=== PATIENT | female | born 1995 | race Caucasian/White ===

== ENCOUNTER 2024-06-09 07:39 | Inpatient (IN) ==
--- OUTSIDE RECORDS SUMMARY | 2024-06-09 07:47 | External Medical Summary | Summary of Care ---
Author Name Unknown Organization [facility] Address [address] [address] Phone [phone] Care Team Providers Care Electric Car Operator Name Role Phone Unavailable Primary Care Provider Unavailabl e Reason for Visit * Reason Comments Healthy Beginnings Return Non Stress Test Encounter Details Date Type Department Care Team (Late st Contact Info) Description 05/23/2024 2:15 PM EDT Office Visit Gynecology/Obstetric s [facility] [place] [address] [place] [id number] Dina Carbajal CRNP [address] [place] [address] [place], Non Stress Tests [facility] [address] [place] [address] Supervision of high risk in third trimester*; Chronic hypertension in ; Obesity affecting , antepartum, unspecified obesity type; Need for rubella vaccination; Other proteinuria; Health counseling; Polyhydramnios in third trimester complication, single or unspecified fetus Allergies No known active allergiesdocumented as of this encounter (statuses as of 05/26/2024) Medications Medication Sig Dispensed Refills Start Date End Date Status Gummies 0.18-25 MG Oral Tablet Chewable Take by mouth. Activ e Magnesium 400 MG Oral Tablet Take by mouth. Active B-12 1000-400 MCG Sublingual Tablet Sublingual Place under the tongue. Active Aspirin 81 MG Oral Tablet Delayed Release (SB Low Dose ASA EC) Take 1 Tablet by mouth in the morning. Active Albuterol Sulfate HFA 108 (90 Base) MCG/ACT Inhalation Aerosol Solution Inhale 2 Puffs by mouth every 6 hours as needed for Dyspnea. 18 g 1 01/24/2024 Active Additional Information Patient not taking.Reported on 02/07/2024 Iron 325 (65 Fe) MG Oral Tablet Take by mouth. Active Labetalol HCl 100 MG Oral Tablet (Normodyne)Indicatio ns:Chronic hypertension in Take 1 Tablet by mouth in the morning and 1 Tablet before bedtime. 60 Tablet 1 04/21/2024 Active Famotidine 20 MG Oral Tablet (Pepcid)Indications: Heartburn Take 1 Tablet by mouth 2 times a day as needed for Heartburn. 30 Tablet 1 04/24/2024 Active documented as of this encounter (statuses as of 05/26/2024) Active Problems Problem Noted Date Diagnosed Date GBS (group B streptococcus) infection 05/26/2024 Polyhydramnios in third trimester 05/08/2024 Last Assessment & Plan: CONSIDERATIONS: Polyhydramnios is the presence of elevated levels of amniotic fluid index (LISY) greater than or equal to 24 cm or a maximum of vertical pocket (MVP) greater than or equal to 8 cm. Polyhydramnios is categorized as: Mild LISY of 24.0-29.9 cm Moderate LISY of 30.0-34.9 cm Severe LISY of greater than or equal to 35 cm We discussed potential etiologies and complications associated with polyhydramnios. Mild polyhydramnios often resolves spontaneously without negative effects on the . RECOMMENDATIONS: In non-diabetic patients, re-screen for GDM if not done within the previous 4 weeks. Please repeat 1'GTT now. Perform MFM (Maternal- Medicine) ultrasound in 4 weeks for assessment of growth and fluid if undelivered. Recommend delivery at 38-39 weeks pending BP control. Antepartum anemia complicating 024 Health counseling 02/07/2024 Overview: Problem Action Taken Date entered Entered by Date resolved First Support noted. 02/07/2024 Ximena Pathak RN 02/07/2024 nutrition Due date verification letter given For WIC 02/07/2024 Ximena Pathak RN 02/07/2024 Problem Action Taken Date entered Entered by Date resolved Current needs or questions Patient denies having any current needs or questions 03/07/2024 Ximena Pathak RN 03/07/2024 Problem Action Taken Date entered Entered by Date resolved Current needs or questions Patient denies having any current needs or questions 03/18/2024 Ximena Pathak RN 03/18/2024 Problem Action Taken Date entered Entered by Date resolved Current needs or questions Patient denies having any current needs or questions 04/21/2024 Elida Gaxiola RN 04/21/2024 Problem Action Taken Date entered Entered by Date resolved Current needs or questions Patient denies having any current needs or questions 04/24/2024 Elida Gaxiola RN 04/24/2024 Problem Action Taken Date entered Entered by Date resolved Current needs or questions Patient denies having any current needs or questions 05/16/2024 Ximena Pathak RN 05/16/2024 Problem Action Taken Date entered Entered by Date resolved Current needs or questions Patient denies having any current needs or questions 05/23/2024 Margot Lanza RN 05/23/2024 Upper respiratory tract infection 01/24/2024 Sore throat (viral) 01/24/2024 Need for rubella vaccination 12/18/2023 Proteinuria 12/18/2023 Overview: Protein/creatinine ratio 348mg/g at NOB 24 hr urine protein 378 mg/g at 22w6d: discussed with Dr Toure, no change in mgmt needed with stable BP - SB , supervision, high-risk 12/13/2023 Migraine with aura and with status migrainosus, not intractable 12/13/2023 Chronic hypertension in 12/13/2023 Overview: Images from the original note were not included. Chronic hypertension diagnosed in 2013 Was on antihypertensives in her early 20s, then discontinued Elevated BP 140/90 at NOB visit (13w) Started on medication Labetalol 100 mg BID at 31w5d following elevations x 2 (diastolic BP >=90) Recommend starting daily low dose ASA Recommendations: Obtain baseline lab work ABIGAIL (if not already done) with assessment of proteinuria (24-hour urine protein or nubxdrf-rk-mukhhbiica ratio) and CBC, serum AST/ALT/creatinine. If patient has had hypertension for 10 years or more, obtain an EKG and eye exam (if not performed within the past year). Recommend initiation of aspirin (81mg) daily, from 13 weeks until delivery, to decrease the risk of superimposed preeclampsia. Daily home blood pressure monitoring, especially in the second half of the . It may be useful to have the patient validate their home device with their primary OB care provider's office. Patients with BP less than 140/90 maintained with antihypertensives should continue medication during . Discontinuation of MARY inhibitors or angiotensin type II receptor antagonists under the guidance of the primary care physician prior to conception of or upon knowledge of . Initiate or adjust antihypertensive medication if BP is 140/90 or greater on at least two occasions at least 4 hours apart and refer patient back to Maternal- Medicine. Titrate medication to maintain blood pressure in a goal range 120-140/70-90. Labetalol and Nifedipine are considered safe for use in and these agents are considered as first-line therapy when indicated. Maternal Medicine ultrasound for anatomy at 19-20 weeks. surveillance as follows: If NOT being treated with anti-hypertensives: Maternal- Medicine ultrasound for growth between 28-30 weeks If being treated with anti-hypertensives: Maternal- Medicine ultrasound for growth every 4 weeks starting at 24-26 weeks surveillance weekly starting at 32 weeks gestation Delivery should be individualized based on blood pressure control and assessment of patient risk and is indicated as follows: For those with stable blood pressures not on anti-hypertensive medications: Between 38 0/7 and 39 6/7 weeks For those on anti-hypertensive medications: Between 37 0/7 and 39 6/7 weeks BP Readings from Last 10 Encounters: 02/15/24 130/82 02/08/24 142/87 02/07/24 126/82 01/24/24 124/80 01/11/24 148/92 12/13/23 140/90 Baseline Preeclampsia Labs Lab Results Component Value Date/Time PLT 210 12/13/2023 09:54 AM CREATININE - [facility] 0.5 12/13/2023 09:54 AM AST - [facility] 30 12/13/2023 09:54 AM ALT - [facility] 36 (H) 12/13/2023 09:54 AM Protein/ Creatinine Ratio, Urine <150 mg/g 348 High 12/13/2023 Protein, Random Urine mg/dL 16 12/13/2023 Creatinine, Random Urine mg/dL 46 Last Assessment & Plan: BP Readings from Last 5 Encounters: 05/07/24 128/82 05/01/24 138/78 04/24/24 126/62 04/21/24 132/90 04/04/24 136/94 Stable on labetalol 100 mg bid. Obesity affecting , antepartum 12/13/19 Overview: The patient's pre-gravid BMI is 39.27. Class 2 obesity Early 1 hour GTT Lab Results Component Value Date/Time 50-G GESTATIONAL GLUCOSE, 1 HOUR - [facility] 128 01/11/2024 09:41 AM Baseline Preeclampsia Labs Lab Results Component Value Date/Time PLT 210 12/13/2023 09:54 AM CREATININE - [facility] 0.5 12/13/2023 09:54 AM AST - [facility] 30 12/13/2023 09:54 AM ALT - [facility] 36 (H) 12/13/2023 09:54 AM Last Assessment & Plan: She presents for follow-up of growth secondary to class II obesity and CHTN (not currently on medications). Today's ultrasound notes the following: The estimated weight is appropriate for gestational age in the 50th percentile. The visualized anatomy is unremarkable in appearance. The LISY is normal. Estimated Date of Delivery Comme nts Yes 06/18/2024 Based on Ultraso und documented as of this encounter (statuses as of 05/26/2024) Resolved Problems Problem Noted Date Diagnosed Date Resolved Date with 15 completed weeks gestation 12/28/2023 02/07/2024 documented as of this encounter (statuses as of 05/26/2024) Immunizations Name Administration Dates Next Due TDAP (age 10 and older)(Boostrix) 04/02/2024 documented as of this encounter Social History Tobacco Use Types Packs/Day Years Used Date Smoking Tobacco: Never Smokeless Tobacco: Never Alcohol Use Standard Drinks/Week Comments Not Currently 0 (1 standard drink = 0.6 oz pur e alcohol) PHQ-2 Answer Date Recorded PHQ Adult Total Score 0 01/24/2024 Hunger Vital Sign Answer Date Recorded Within the past 12 months, y ou worried that your food would run out before you got the money to buy more. Never true 02/08/20 24 Within the past 12 months, t he food you bought just didn't last and you didn't have money to get more. Never true 02/08/2024 [place] Depression Scale Answer Date Recorded [place] Depression Scale Total 0 12/13/2023 The thought of harming myself has occurred to me . Never 12/13/2023 Childcare Answer Date Recorded Do you feel overwhelmed with taking care of a child, family member or friend? No 02/08/2024 Does your family need help f inding childcare? (Household - for ages 0-17 years) Not on file 02/08/2024 Clothing Answer Date Recorded Have you been unable to get clothing when it was really needed? No 02/08/2024 Is your family able to get c lothes or diapers when needed? (Household - for ages 0-17 years) Not on file 02/08/2024 Personal Safety Answer Date Recorded Do you feel unsafe or have concerns for your saf ety? No 02/08/2024 Do you have concerns for you r family's safety? (Household - for ages 0-17 years) Not on file 02/08/2024 Utilities Answer Date Recorded Do you have trouble paying y our heating, water, or electric bill? No 02/08/2024 Is your family able to pay t he heat, water, or electric bill? (Household - for ages 0-17 years) Not on file 02/08/2024 Does your family have access to good internet? (Household - for ages 0-17 years) Not on file 02/08/2024 Employment Status Answer Date Recorded Are you unemployed or without regular income? No 02/08/2024 Does the household have a re gular source of income? (Household - for ages 0-17 years) Not on file 02/08/2024 Social Connections Answer Date Recorded How often do you feel lonely or isolated from th ose around you? Never 02/08/2024 Financial Resource Strain Answer Date R ecorded Do you have any trouble payi ng for your medications, or do you think you might in the future? No 02/08/2024 Does your family have troubl e paying for medicine? (Household - for ages 0-17 years) Not on file 02/08/2024 Transportation Needs Answer Date Record ed READ ONLY Do you have troubl e getting a ride to medical visits or work? Never True 02/08/2024 Does your family have a hard time getting a ride to doctors visits? (Household - for ages 0-17 years) Not on file 02/08/2024 Has lack of transportation k ept you from medical appointments, meetings, work, or from getting things needed for daily living? Check all that apply. (Adult - for ages 18 years and over) Not on file 02/08/2024 Do you (or your family) have trouble finding or paying for a ride (transportation)? (Household - for ages 0-17 years) Not on file 02/08/2024 Housing Stability Answer Date Recorded Do you currently live in a s helter or have no steady place to sleep at night? No 02/08/2024 READ ONLY Do you think you a re at risk of becoming homeless? No 02/08/2024 Does your family worry about paying for your home or becoming homeless? (Household - for ages 0-17 years) Not on file 0 02/08/2024 Are you homeless or worried that you might be in the future? (Adult - for ages 18 years and over) Not on file Are you (or your family) zhanna eless or worried that you might be in the future? (Household - for ages 0-17 years) Not on file Food Insecurity Answer Date Recorded Do you need food for this week? No 02/08/2024 Are you able to get enough f ood for your family? (Household - for ages 0-17 years) Not on file 02/08/2024 Does your family need food t his week? (Household - for ages 0-17 years) Not on file 02/08/2024 Do you always have enough fo od for your family? (Household - for ages 0-17 years) Not on file 02/08/2024 Estimated Date of Delivery Comme nts Yes 06/18/2024 Based on Ultraso und Sex and Gender Information Value Date Recorded Sex Assigned at Female 11/01/2023 9:05 AM EST Gender Identity Female 11/01/2023 9:05 AM EST Sexual Orientation Straight 11/01/2023 9: 05 AM EST Job Start Date Occupation Industry Not on file Not on file Not on file documented as of this encounter Last Filed Vital Signs Vital Sign Reading Time Taken Comments Blood Pressure 108/68 05/23/2024 2:02 PM EDT Pulse - - Temperature - - Respiratory Rate - - Oxygen Saturation - - Inhaled Oxygen Concentration - - Weight 111.4 kg (245 lb 9.6 oz) 05/23/2024 2:02 PM EDT Height 165.1 cm (5' 5") 05/23/2024 2:02 PM EDT Body Mass Index 40.87 05/23/2024 2:02 PM EDT documented in this encounter Progress Notes * Dina Carbajal CRNP - 05/23/2024 3:19 PM EDT 36w2d Questions regarding IOL, answered to the best of my ability. Uncertain position of baby, was transverse at last u/s. IOL scheduled for 06/06, but need to reevaluate position- does not feel cephalic at visit today. Discussed need for c/s if breech, not interested in ECV. Baby is active. Denies contractions, bleeding, LOF. GBS today. Cost Consultant Documentation Provider requested mercantile agent. Name of mercantile agent: Radha Will obtain u/s for position check with next visit. ASSESSMENT assessment with Non-stress Test completed on 05/23/2024 at 36.2weeks gestation for indication of chronic hypertension heart baseline: 120 bpm Variability: Moderate Decelerations: absent Accelerations: present Contractions: None NST start time: 1340 NST stop time: 1406 NST strip reviewed, interpreted, and approved by OB provider, BETSEY [place] . NST strip stored in clinic storage file documented in this encounter Nursing Notes * Margot Lanza RN - 05/23/2024 2:30 PM EDT Patient seen by [facility] Bar Supervisor. Patient denies any questions or concerns. have you cut down with your smoking NA have you quit NA have you seen a driver trainer No have you seen a social worker aide No are you receiving counseling No have you received dental care during your No are you enrolled in WIC No do you receive food stamps or [place] assistance No Margot Lanza, RN documented in this encounter Miscellaneous Notes * Addendum Note - Marko Dunne LPN - 05/23/2024 3:30 PM EDT Addended by: MARKO DUNNE on: 05/23/2024 03:30 PM Modules accepted: Orders documented in this encounter Plan of Treatment Upcoming Encounters Date Type Department Care Team (Late st Contact Info) Description 06/02/2024 9:30 AM EDT Imaging Radiology [facility] [address] [facility] [place] [id number] 06/02/2024 11:30 AM EDT Office Visit Gynecology/Obstetrics [address] [place] [address] Stacy Silva, WEI, [address] [place] [address] 06/05/2024 8:45 AM EDT Imaging Maternal Medicine Imaging, [address] [place] [address] Scheduled Orders Name Type Priority Associated Diagnoses Orde r Schedule US PREG LIMITED 1 OR MORE FETUSES Medical Imaging Routine Supervision of high risk in third trimester Expected: 05/30/2024 (Approximate), Expires: 06/23/2025 Health Maintenance Due Date Last Done Comments Hepatitis B Vaccine (1 of 3 - 19+ 3-dose series) 2013 COVID-19 Vaccine ( season) 2023 Influenza Vaccine (FLU shot) (#1) 2024 Depression Screening 01/23/2025 01/24/2024 GFR 04/24/2025 04/24/2024, 04/07, 03/18/2024, Additional history exists Pap Smear 12/12/2026 12/13/2023 Cervical Cancer Screening 12/12/2028 HPV/Co-Test 12/12/2028 12/13/2023 DTaP,Tdap,and Td Vaccines (2 - Td or Tdap) 04/02/2034 04/02/2024 HPV (Gardasil) Vaccine Aged Out No lo nger eligible based on patient's age to complete this topic MENINGOCOCCAL (MENACTRA/MENVEO) Aged Out No longer eligible based on patient's age to complete this topic Pneumococcal Vaccine: Pediatrics (0 to 5 Years) and At-Risk Patients (6 to 64 Years) Aged Out No longer eligible based on patient's age to complete this topic documented as of this encounter Medical Devices Not on filedocumented as of this encounter Procedures Procedure Name Priority Date/Time Associated Diagnosis Comments GROUP B STREP CULTURE/PCR Routine 05/23/2024 3:16 PM EDT Supervision of high risk in third trimester URINALYSIS, POINT OF CARE (ENTER/EDIT) Routine 05/23/2024 Chronic hypertension in documented in this encounter Results * (ABNORMAL) GROUP B STREP CULTURE/PCR (05/23/2024 3:16 PM EDT) Group B Strep PCR Result Positive( A) Negative 05/24/2024 9:26 PM EDT [facility] Comment:Group B Streptococcu s detected by culture-enhanced PCR (amplified probe). GBS GBSCt 23.1 05/24/2024 9:26 PM EDT [facility] GBS SPCCt 0.0 05/24/2024 9:26 PM EDT [facility] Swab Rectum and vagina, CS / Unknown 05/23/2024 3:16 PM EDT 05/23/2024 3:16 PM EDT Dina LEGGETT LAB MICRO - GENERAL ORDERABLES LABORATORY [facility] [address] [place] [address] * URINALYSIS, POINT OF CARE (ENTER/EDIT) (05/23/2024) Color, Urine Yellow Yellow or Light Yellow Clarity, Urine Clear Clear Glucose, Urine Negative Negative mg/dL Bilirubin, Urine Negative Negative Ketone, Urine Negative Negative mg/dL Specific [place], Urine 1.010 1.003 - 1.030 Blood, Urine Negative Negative pH, Urine 7.0 5.0 - 7.5 units Protein, Urine Negative Negative mg/dL Urobilinogen, Urine 0.2 0.2 - 1.0 mg/dL Nitrite, Urine Negative Negative Esterase, Urine Negative Negative Urine 05/23/2024 Dina LEGGETT LAB POINT OF CARE TE ST ENTER/EDIT ORDERABLES documented in this encounter Visit Diagnoses Diagnosis Supervision of high risk in third trimester- Primary Unspecified high-risk Chronic hypertension in Benign essential hypertension complicating , childbirth, and the puerperium, unspecified as to episode of care Obesity affecting , antepartum, unspecified obesity type Need for rubella vaccination Need for prophylactic vaccination and inoculation against rubella alone Other proteinuria Health counseling Other specified counseling Polyhydramnios in third trimester complication, single or unspecified fetus documented in this encounter
--- OUTSIDE RECORDS SUMMARY | 2024-06-09 07:47 | External Medical Summary | Summary of Care ---
Author Name Unknown Organization [facility] Address [address] [facility] [place] [address] Phone [phone] Care Team Providers Care Certified Histologic Technician Name Role Phone Unavailable Primary Care Provider Unavailabl e Encounter Details Date Type Department Care Team (Late st Contact Info) Description 06/04/2024 Telephone Gynecology/Obstetrics [facility] [address] [place] [address] Aris Lenz MD [address] [place] [address] Allergies No known active allergiesdocumented as of this encounter (statuses as of 06/04/2024) Medications Medication Sig Dispensed Refills Start Date [...] as of this encounter (statuses as of 06/04/2024) Active Problems Problem Noted Date Diagnosed Date [...] assessment of proteinuria (24-hour urine protein or hiqfolu-pv-iqpefqdlvj ratio) and CBC, serum AST/ALT/creatinine. If patient [...] as of this encounter (statuses as of 06/04/2024) Resolved Problems Problem Noted Date Diagnosed Date Resolved Date with 15 completed weeks gestation 12/28/2023 02/07/2024 documented as of this encounter (statuses as of 06/04/2024) Immunizations Name Administration Dates Next Due TDAP [...] money to buy more. Never true 02/08/20 Within the past 12 months, t he food you bought just didn't last and you didn't have money to get more. Never true 02/08/2024 [place] Depression Scale Answer Date Recorded [place] Depression Scale Total 0 12/13/2023 The thought [...] on file documented as of this encounter Miscellaneous Notes * Telephone Encounter - Robyn David LPN - 06/04/2024 3:57 PM EDT Spoke with pt she verbalized understanding * Telephone Encounter - Patsy David LPN - 06/04/2024 2:41 PM EDT [facility] L&D calling stating IOL needs to be moved from 06/06/24 to . LM for pt to call office to review new IOL info. documented in this encounter Plan of Treatment Upcoming Encounters Date Type Department Care Team (Late st Contact Info) Description 06/05/2024 8:45 AM EDT Imaging Maternal Medicine Imaging, [facility] [address] [facility] [place] [id number] 06/05/2024 8:45 AM EDT Office Visit Director Power Obstetrics Maternal Medicine, [facility] [address] [facility] [place] [address] Thu Toure, DO [address] [place] [address] Health Maintenance Due Date Last Done Comments Hepatitis B Vaccine (1 of 3 - 19+ 3-dose series) 2013 COVID-19 Vaccine ( season) 2023 Influenza Vaccine (FLU shot) (#1) 2024 Depression Screening 01/23/2025 01/24/2024 GFR 04/24/2025 04/24/2024, 04/07, 03/18/2024, Additional history exists Pap Smear 12/12/2026 12/13/2023 Cervical Cancer Screening 12/12/2028 HPV/Co-Test 12/12/2028 12/13/2023 DTap/Tdap Vaccines (2 - Td or Tdap) 04/02/2034 [...]
--- OUTSIDE RECORDS SUMMARY | 2024-06-09 07:47 | External Medical Summary | Summary of Care ---
Author Name Unknown Organization [facility] Address [address] [facility] [address] Phone [phone] Care Team Providers Care Medical Imaging Specialist Name Role Phone Unavailable Primary Care Provider Unavailabl e Encounter Details Date Type Department Care Team (Late st Contact Info) Description 04/21/2024 [facility] [address] [place] [address] Nola Meyer PA-C [address] [facility] [place] [address] Allergies No known active allergiesdocumented as of this encounter (statuses as of 05/28/2024) Medications Medication Sig Dispensed Refills Start Date [...] before bedtime. 60 Tablet 1 04/21/2024 Active documented as of this encounter (statuses as of 05/28/2024) Active Problems Problem Noted Date Diagnosed Date [...] assessment of proteinuria (24-hour urine protein or ybmsldy-tr-diqzbvwhxj ratio) and CBC, serum AST/ALT/creatinine. If patient [...] as of this encounter (statuses as of 05/28/2024) Resolved Problems Problem Noted Date Diagnosed Date Resolved Date with 15 completed weeks gestation 12/28/2023 02/07/2024 documented as of this encounter (statuses as of 05/28/2024) Immunizations Name Administration Dates Next Due TDAP [...] money to get more. Never true 02/08/2024 [place] Depression Scale Answer Date Recorded [place] Depression Scale Total 0 12/13/2023 The thought [...] 02/08/2024 Does the household have a re lar source of income? (Household - for ages [...] encounter Miscellaneous Notes * Telephone Encounter - Nola Meyer PA-C - 04/21/2024 8:13 AM EDT Pt needs CHIO/NST/BP check on -- any provider. Nola Meyer PA-C documented in this encounter Plan of Treatment Upcoming Encounters Date Type Department Care Team (Late st Contact Info) Description 06/02/2024 9:30 AM EDT Imaging Radiology [facility] 132 [facility] [place] [address] 06/02/2024 11:30 AM EDT Office Visit Gynecology/Obstetrics [facility] 132 [facility] [place] [address] Stacy Silva, WEI, CNM [address] [place] [phone] 06/05/2024 8:45 AM EDT Imaging Maternal Medicine Imaging, [facility] [address] [facility] [place] [address] Health Maintenance Due Date Last Done Comments Hepatitis B Vaccine (1 of 3 - 19+ 3-dose series) 2013 COVID-19 Vaccine ( - 2022-24 season) 2023 Influenza Vaccine (FLU shot) (#1) [...]
--- OUTSIDE RECORDS SUMMARY | 2024-06-09 07:47 | External Medical Summary | Summary of Care ---
Author Name Unknown Organization [facility] Address [address] [facility] [address] Phone [phone] Care Team Providers Care Overhead Cleaner Name Role Phone Unavailable Primary Care Provider Unavailabl e Reason for Visit * Reason Comments Healthy Beginnings Return Non Stress Test Encounter Details Date Type Department Care Team (Late st Contact Info) Description 05/23/2024 2:15 PM EDT Office Visit Gynecology/Obstetric s [facility] [address] [place] [address] Dina Carbajal CRNP [address] [place] [address] [place], Non Stress Tests [facility] [address] [place] [address] Supervision of high risk in third trimester*; Chronic hypertension in ; Obesity affecting , antepartum, unspecified obesity type; Need for rubella vaccination; Other proteinuria; Health counseling; Polyhydramnios in third trimester complication, single or unspecified fetus Allergies No known active allergiesdocumented as of this encounter (statuses as of 05/23/2024) Medications Medication Sig Dispensed Refills Start Date [...] as of this encounter (statuses as of 05/23/2024) Active Problems Problem Noted Date Diagnosed Date Polyhydramnios in third trimester 05/08/2024 Last Assessment [...] by Date resolved First Support noted. 02/07/2024 Ximenaedward Pathak RN 02/07/2024 nutrition Due date verification [...] assessment of proteinuria (24-hour urine protein or klarhzn-yo-otvuvpodia ratio) and CBC, serum AST/ALT/creatinine. If patient [...] as of this encounter (statuses as of 05/23/2024) Resolved Problems Problem Noted Date Diagnosed Date Resolved Date with 15 completed weeks gestation 12/28/2023 02/07/2024 documented as of this encounter (statuses as of 05/23/2024) Immunizations Name Administration Dates Next Due TDAP [...] money to get more. Never true 02/08/2024 [place] Depression Scale Answer Date Recorded [place] Depression Scale Total 0 12/13/2023 The thought [...] active. Denies contractions, bleeding, LOF. GBS today. [employer] Documentation Provider requested pension administrator. Name of pension administrator: Radha Will obtain u/s for position check [...] 05/23/2024 2:30 PM EDT Patient seen by [facility] Resident Physician In Radiology. Patient denies any questions or concerns. have you cut down with your smoking NA have you quit NA have you seen a email designer No have you seen a psychosocial rehabilitation counselor No are you receiving counseling No have you received dental care during your No are you enrolled in WIC No do you receive food stamps or orellana assistance Yael Lanza, RN documented in this encounter Miscellaneous Notes * Addendum Note - Marko Dunne LPN - 05/23/2024 3:30 PM EDT Addended by: MARKO DUNNE on: 05/23/2024 03:30 PM Modules accepted: Orders documented in this encounter Plan of Treatment Upcoming Encounters Date Type Department Care Team (Late st Contact Info) Description 06/02/2024 9:30 AM EDT Imaging Radiology [facility] 132 [facility] [place] [address] 06/02/2024 11:30 AM EDT Office Visit Gynecology/Obstetrics [address] [place] [address] Stacy Silva, WEI, CN[address] [place] [address] 06/05/2024 8:45 AM EDT Imaging Maternal Medicine Imaging, [address] [place] [phone] Pending Results Name Type Priority Associated Diagnoses Date /Time GROUP B STREP CULTURE/PCR Lab Routine Supervision of high risk in third trimester 05/23/2024 3:16 PM EDT Scheduled Orders Name Type Priority Associated Diagnoses Orde r Schedule US PREG LIMITED 1 OR MORE FETUSES Medical Imaging Routine Supervision of high risk in third trimester Expected: 05/30/2024 (Approximate), Expires: 06/23/2025 Health Maintenance Due Date Last Done Comments Hepatitis B Vaccine (1 of 3 - 19+ 3-dose series) 2013 COVID-19 Vaccine (2022-24 season) 2023 Influenza Vaccine (FLU shot) (#1) [...] Procedure Name Priority Date/Time Associated Diagnosis Comments URINALYSIS, POINT OF CARE (ENTER/EDIT) Routine 05/23/2024 Chronic hypertension in documented in this encounter Results * URINALYSIS, POINT OF CARE (ENTER/EDIT) (05/23/2024) Color, Urine Yellow Yellow or Light Yellow Clarity, Urine Clear Clear Glucose, Urine Negative Negative mg/dL Bilirubin, Urine Negative Negative Ketone, Urine Negative Negative mg/dL Specific [place], Urine 1.010 1.003 - 1.030 Blood, Urine [...]
--- OUTSIDE RECORDS SUMMARY | 2024-06-09 07:47 | External Medical Summary ---
Author Name Unknown Address Unknown Organization [id number]:[facility] [place] [facility] [place] [address] Laboratory Report Ordering Provider Test Date Status HAN DORANTES 05/23/2024 15:16:44 Final Observation Date Value Abnormality Reference (Units ) Status Streptococcus agalactiae DNA [Presence] in Specimen by BRICE with probe detection 05/23/2024 15:16:44 Positive Abnormal Negative Final Group B Streptococcus detect ed by culture-enhanced PCR (amplified probe). GBS GBSCT - [facility] 05/23/2024 15:16:44 23.1 Final GBS SPCCT - [facility] 05/23/2024 15:16:44 0.0 Final Performing Location [facility] [place] [address] [facility] [address]
--- OUTSIDE RECORDS SUMMARY | 2024-06-09 07:47 | External Medical Summary | Summary of Care ---
Author Name Unknown Organization [facility] Address [address] [facility] [address] Phone [phone] Care Team Providers Care Staff Submarine Warfare Officer Name Role Phone Unavailable Primary Care Provider Unavailabl e Reason for Visit * Reason Comments Return Visit Encounter Details Date Type Department Care Team (Late st Contact Info) Description 06/02/2024 11:30 AM EDT Office Visit Gynecology/Obstetric s [facility] 132 [facility] [place] [address] Stacy Silva, DNP, CN [address] [facility] [place] [address] Supervision of high risk in third trimester*; Chronic hypertension in ; Other obesity affecting , antepartum; Need for rubella vaccination; Health counseling; GBS (group B streptococcus) infection Allergies No known active allergiesdocumented as of this encounter (statuses as of 06/02/2024) Medications Medication Sig Dispensed Refills Start Date [...] as of this encounter (statuses as of 06/02/2024) Active Problems Problem Noted Date Diagnosed Date [...] assessment of proteinuria (24-hour urine protein or fgdjlaq-em-eaypkuinvy ratio) and CBC, serum AST/ALT/creatinine. If patient [...] as of this encounter (statuses as of 06/02/2024) Resolved Problems Problem Noted Date Diagnosed Date Resolved Date with 15 completed weeks gestation 12/28/2023 02/07/2024 documented as of this encounter (statuses as of 06/02/2024) Immunizations Name Administration Dates Next Due TDAP [...] money to get more. Never true 02/08/2024 [place] Depression Scale Answer Date Recorded [place] Depression Scale Total 0 12/13/2023 The thought [...] Sign Reading Time Taken Comments Blood Pressure 134/82 06/02/2024 11:25 AM EDT Pulse - - Temperature - - Respiratory Rate - - Oxygen Saturation - - Inhaled Oxygen Concentration - - Weight 112.5 kg (248 lb) 06/02/2024 11:25 AM EDT Height 165.1 cm (5' 5") 06/02/2024 11:25 AM EDT Body Mass Index 41.27 06/02/2024 11:25 AM EDT documented in this encounter Progress Notes * Stacy Silva DNP, CNM - 06/02/2024 11:51 AM EDT Selwyn Christian is a 29 year old female here for her routine OB appointment at 37w5d Her Estimated Date of Delivery: 06/18/24 REVIEW OF SYSTEMS: She affirms movement. Denies vaginal bleeding, LOF, contractions, N/V, headaches ok this week. Baby is vertex on US today. Has IOL 06/06 Not doing NST today bc she has BPP on with MFM. PHYSICAL EXAM: Filed Vitals: 06/02/24 1125 BP: 134/82 Weight: 112.5 kg (248 lb) Height: 1.651 m (5' 5") +FHT 130s Fundal height 38 ASSESSMENT/PLAN: (O09.90) , supervision, high-risk (primary encounter diagnosis) Plan: (O10.919) Chronic hypertension in Plan: Labetalol 100mg BID (O40.3XX0) Polyhydramnios in third trimester Plan: LISY 27.6 polyhydramnios (A49.1) GBS (group B streptococcus) infection Plan: Pt aware. Supervision of - BPP on with MFM - IOL on 06/06, pt declines SVE today. Discussed cervical ripening can be a very lengthy process. - labor precautions and kick counts reviewed - RTO in 1 week Stacy Silva DNP, CNM documented in this encounter Nursing Notes * Robyn David LPN - 06/02/2024 11:20 AM EDT 37w5d US today Vertex Lisy 27.6cm HR 133 documented in this encounter Plan of Treatment Upcoming Encounters Date Type Department Care Team (Late st Contact Info) Description 06/05/2024 8:45 AM EDT Imaging Maternal Medicine Imaging, [facility] 132 [facility] [place] [phone] Health Maintenance Due Date Last Done Comments Hepatitis B Vaccine (1 of 3 - 19+ 3-dose series) 2013 COVID-19 Vaccine ( - 2022- season) 2023 Influenza Vaccine (FLU shot) (#1) [...] Not on filedocumented as of this encounter Visit Diagnoses Diagnosis Supervision of high risk in third trimester- Primary Unspecified high-risk Chronic hypertension in Benign essential hypertension complicating , childbirth, and the puerperium, unspecified as to episode of care Other obesity affecting , antepartum Need for rubella vaccination Need for prophylactic vaccination and inoculation against rubella alone Health counseling Other specified counseling GBS (group B streptococcus) infection Streptococcus infection in conditions classified elsewhere and of unspecified site, group B documented in this encounter
--- OUTSIDE RECORDS SUMMARY | 2024-06-09 07:47 | External Medical Summary | Summary of Care ---
Author Name Unknown Organization [facility] Address [address] [facility] [place] [address] Phone [phone] Care Team Providers Care Dairy Associate Name Role Phone Unavailable Primary Care Provider Unavailabl e Encounter Details Date Type Department Care Team (Late st Contact Info) Description 05/30/2024 Population Health External Data Unspecified Department Allergies No known active allergiesdocumented as of this encounter (statuses as of 05/30/2024) Medications Medication Sig Dispensed Refills Start Date [...] as of this encounter (statuses as of 05/30/2024) Active Problems Problem Noted Date Diagnosed Date [...] assessment of proteinuria (24-hour urine protein or yuhrwqk-qg-tpbqghetsm ratio) and CBC, serum AST/ALT/creatinine. If patient [...] as of this encounter (statuses as of 05/30/2024) Resolved Problems Problem Noted Date Diagnosed Date Resolved Date with 15 completed weeks gestation 12/28/2023 02/07/2024 documented as of this encounter (statuses as of 05/30/2024) Immunizations Name Administration Dates Next Due TDAP [...] money to get more. Never true 02/08/2024 [place] Depression Scale Answer Date Recorded [place] Depression Scale Total 0 12/13/2023 The thought [...] No 02/08/2024 Does the household have a [facility] source [facility] income? (Household - for ages [...] on file documented as of this encounter Plan of Treatment Upcoming Encounters Date Type Department Care Team (Late st Contact Info) Description 06/02/2024 9:30 AM EDT Imaging Radiology [facility] 132 [facility] [place] [address] 06/02/2024 11:30 AM EDT Office Visit Gynecology/Obstetrics [facility] [address] [place] [address] Stacy Silva, DNP, CNM [address] [place] [address] 06/05/2024 8:45 AM EDT Imaging Maternal Medicine Imaging, [place] [address] [place] [phone] Health Maintenance Due Date Last Done Comments Hepatitis B Vaccine (1 of 3 - 19+ 3-dose series) 2013 COVID-19 Vaccine (1 - 2022-24 season) 2023 Influenza Vaccine (FLU [...]
--- OUTSIDE RECORDS SUMMARY | 2024-06-09 07:47 | External Medical Summary | Summary of Care ---
Author Name Unknown Organization [facility] Address [address] [place] [address] Phone [phone] Care Team Providers Care Pasteurizer Helper Name Role Phone Unavailable Primary Care Provider Unavailabl e Encounter Details Date Type Department Care Team (Late st Contact Info) Description 06/05/2024 8:45 AM EDT Office Visit Checking Department Supervisor Obstetrics Maternal Medicine, [address] [place] [address] Thu Toure, DO [address] [place] [address] Obesity affecting , antepartum, unspecified obesity type*; Polyhydramnios in third trimester complication, single or unspecified fetus; Ultrasound for screening for growth restriction; 38 weeks gestation of Allergies No known active allergiesdocumented as of this encounter (statuses as of 06/05/2024) Medications Medication Sig Dispensed Refills Start Date [...] as of this encounter (statuses as of 06/05/2024) Active Problems Problem Noted Date Diagnosed Date GBS (group B streptococcus) infection 05/26/2024 Polyhydramnios in third trimester 05/08/2024 Last Assessment & Plan: LISY today remains elevated at 33 cm. Delivery planned. Antepartum anemia complicating 024 Health counseling 02/07/2024 Overview: Problem Action Taken Date entered Entered by Date resolved First Support noted. 02/07/2024 Ximena Pathak RN 02/07/2024 nutrition Due date verification letter given For WIC 02/07/2024 Ximena Pathak RN 02/07/2024 Problem Action Taken Date entered Entered by Date resolved Current needs or questions Patient denies having any current needs or questions 03/07/2024 Xmiena Pathak RN 03/07/2024 Problem Action Taken Date [...] assessment of proteinuria (24-hour urine protein or kdzeduy-fz-alizskgpsm ratio) and CBC, serum AST/ALT/creatinine. If patient [...] as of this encounter (statuses as of 06/05/2024) Resolved Problems Problem Noted Date Diagnosed Date Resolved Date with 15 completed weeks gestation 12/28/2023 02/07/2024 documented as of this encounter (statuses as of 06/05/2024) Immunizations Name Administration Dates Next Due TDAP [...] money to get more. Never true 02/08/2024 [place] Depression Scale Answer Date Recorded [place] Depression Scale Total 0 12/13/2023 The thought [...] No 02/08/2024 Does the household have a [facility] source of income? (Household - for ages [...] on file documented as of this encounter Progress Notes * Thu Toure, DO - 06/05/2024 10:20 AM EDT Paulina presented today at 38w1d for an ultrasound for the following indications: Obesity affecting , antepartum, unspecified obesity type Polyhydramnios in third trimester complication, single or unspecified fetus Assessment & Plan: LISY today remains elevated at 33 cm. Delivery planned. Ultrasound for screening for growth restriction 38 weeks gestation of Ultrasound summary: Patient presented at 38w 1d for growth assessment. Normal growth with EFW 3450 g at 67%ile. Increased LISY at 33.2 cm. Cephalic presentation. BPP 05/15. I reviewed the ultrasound images. Selwyn was given the opportunity to meet with me if she had any questions. Please refer to the ultrasound report for additional details about today's ultrasound examination. RECOMMENDATIONS: Follow up with MFM for ultrasound as clinically indicated. See prior formal MFM consultation note. Thank you for allowing us to participate in the care of this patient. Please call with any questions. Thu Toure DO 06/05/2024 10:20 AM documented in this encounter Miscellaneous Notes * Assessment & Plan Note - Thu Toure DO - 06/05/2024 10:20 AM EDT Associated Problem(s): Polyhydramnios in third trimester LISY today remains elevated at 33 cm. Delivery planned. documented in this encounter Plan of Treatment Health Maintenance Due Date Last Done Comments [...] as of this encounter Visit Diagnoses Diagnosis Obesity affecting , antepartum, unspecified obesity type- Primary Polyhydramnios in third trimester complication, single or unspecified fetus Ultrasound for screening for growth restriction screening for growth retardation using ultrasonics 38 weeks gestation of state, incidental documented in this encounter
--- OUTSIDE RECORDS SUMMARY | 2024-06-09 07:47 | External Medical Summary | Summary of Care ---
Author Name Unknown Organization [facility] Address [address] [facility] [place] [address] Phone [phone] Care Team Providers Care Health Nurse Name Role Phone Unavailable Primary Care Provider Unavailabl e Encounter Details Date Type Department Care Team (Late st Contact Info) Description 05/26/2024 Population Health External Data Unspecified Department Allergies [...] assessment of proteinuria (24-hour urine protein or amiznxo-zd-dccpimokez ratio) and CBC, serum AST/ALT/creatinine. If patient [...] money to get more. Never true 02/08/2024 [place] Depression Scale Answer Date Recorded [place] Depression Scale Total 0 12/13/2023 The thought [...] Description 06/02/2024 9:30 AM EDT Imaging Radiology [facility] 132 [facility] [place] [address] 06/02/2024 11:30 AM EDT Office Visit Gynecology/Obstetrics [facility] [address] [place] [address] Stacy Silva, DNP, CNM [address] [place] [address] 06/05/2024 8:45 AM EDT Imaging Maternal Medicine Imaging, [facility] [address] [place] [phone] Health Maintenance Due Date [...]
--- OUTSIDE RECORDS SUMMARY | 2024-06-09 07:47 | External Medical Summary | Summary of Care ---
Author Name Unknown Organization [facility] Address [address] [facility] [place] [address] Phone [phone] Care Team Providers Care Senior Lead Java Developer Name Role Phone Unavailable Primary Care Provider Unavailabl e Reason for Visit * Reason Onset Date Comments Appointment 05/16/2024 Encounter Details Date Type Department Care Team (Late st Contact Info) Description 05/16/2024 Telephone Gynecology/Obstetrics [facility] [address] [place] [address] Dominique Cody PA-C [address] [place], [place] [phone] Appointment Allergies No known active allergiesdocumented as of this encounter (statuses as of 06/03/2024) Medications Medication Sig Dispensed Refills Start Date [...] as of this encounter (statuses as of 06/03/2024) Active Problems Problem Noted Date Diagnosed Date [...] assessment of proteinuria (24-hour urine protein or gssqhwu-sl-rlcgzrdbic ratio) and CBC, serum AST/ALT/creatinine. If patient [...] as of this encounter (statuses as of 06/03/2024) Resolved Problems Problem Noted Date Diagnosed Date Resolved Date with 15 completed weeks gestation 12/28/2023 02/07/2024 documented as of this encounter (statuses as of 06/03/2024) Immunizations Name Administration Dates Next Due TDAP [...] the money to buy more. Never true 05/03/20 24 Within the past 12 months, t he food you bought just didn't last and you didn't have money to get more. Never true 02/08/2024 [place] Depression Scale Answer Date Recorded [place] Depression Scale Total 0 12/13/2023 The thought [...] No 02/08/2024 Does the household have a [facility] source of income? (Household - for [...] encounter Miscellaneous Notes * Telephone Encounter - Julisa Guerrero OSA - 05/16/2024 10:07 AM EDT Return in about 1 week (around 05/23/2024) for CHIO/NST/GBS. documented in this encounter Plan of Treatment Upcoming Encounters Date Type Department Care Team (Late st Contact Info) Description 06/05/2024 8:45 AM EDT Imaging Maternal Medicine Imaging, [facility] 132 [facility] [place] [phone] Health Maintenance Due Date Last Done Comments [...]
--- OUTSIDE RECORDS SUMMARY | 2024-06-09 07:47 | External Medical Summary | Summary of Care ---
Author Name Unknown Organization [facility] Address [address] [facility] [place] [address] Phone [phone] Care Team Providers Care Actimize Architect Name Role Phone Unavailable Primary Care Provider Unavailabl e Reason for Visit * Reason Comments Healthy Beginnings Return Non Stress Test Encounter Details Date Type Department Care Team (Late st Contact Info) Description 05/23/2024 2:15 PM EDT Office Visit Gynecology/Obstetric s [facility] [place] [address] [place] [address] Dina Carbajal CRNP [address] [place] [address] [place], Non Stress Tests D[facility] [address] [place] [address] Supervision of high risk in third trimester*; [...] having any current needs or questions 04/24/2024 Eldia Gaxiola RN 04/24/2024 Problem Action Taken Date [...] assessment of proteinuria (24-hour urine protein or snbztkh-yd-aofmxbxnld ratio) and CBC, serum AST/ALT/creatinine. If patient [...] money to get more. Never true 02/08/2024 [place] Depression Scale Answer Date Recorded [place] Depression Scale Total 0 12/13/2023 The thought [...] active. Denies contractions, bleeding, LOF. GBS today. Document Scanner Documentation Provider requested grinding machine operator portable. Name of grinding machine operator portable: Radha Will obtain u/s for position check [...] 05/23/2024 2:30 PM EDT Patient seen by [facility] Supervisor Shuttle Preparation. Patient denies any questions or concerns. have you cut down with your smoking NA have you quit NA have you seen a kiln firer No have you seen a social welfare research worker No are you receiving counseling No have [...] Description 06/02/2024 9:30 AM EDT Imaging Radiology [facility] [address] [place] [address] 06/02/2024 11:30 AM EDT Office Visit Gynecology/Obstetrics [address] [place] [address] Stacy Silva, WEI, CN[address] [place] [address] 06/05/2024 8:45 AM EDT Imaging Maternal Medicine Imaging, [address] [place] [phone] Pending Results Name [...] Negative Ketone, Urine Negative Negative mg/dL Specific [place], Urine 1.010 1.003 - 1.030 Blood, Urine [...]
--- OUTSIDE RECORDS SUMMARY | 2024-06-09 07:47 | External Medical Summary | Summary of Care ---
Author Name Unknown Organization [facility] Address [address] [place] [address] Phone [phone] Care Team Providers Care Newspaper Carrier Name Role Phone Unavailable Primary Care Provider Unavailabl e Encounter Details Date Type Department Care Team (Late st Contact Info) Description 06/05/2024 8:45 AM EDT Office Visit Human Resources Executive Assistant Obstetrics Maternal Medicine, [address] [place] [address] Thu Toure, DO [address] [place] [address] Obesity affecting , antepartum, unspecified [...] assessment of proteinuria (24-hour urine protein or wobgeer-kr-hojhblxuty ratio) and CBC, serum AST/ALT/creatinine. If patient [...] money to get more. Never true 02/08/2024 [place] Depression Scale Answer Date Recorded [place] Depression Scale Total 0 12/13/2023 The thought [...] No 02/08/2024 Does the household have a [facility] medical cent[facility] source of income? (Household - for ages [...] Toure, DO - 06/05/2024 10:20 AM EDT [place] presented today at 38w1d for an ultrasound [...]
--- OUTSIDE RECORDS SUMMARY | 2024-06-09 07:47 | External Medical Summary | Summary of Care ---
Author Name Unknown Organization [facility] Address [address] [facility] [place] [address] Phone [phone] Care Team Providers Care Shelter Supervisor Name Role Phone Unavailable Primary Care Provider Unavailabl e Reason for Visit * Reason Onset Date Comments Encounter Created in Error 06/05/2024 Encounter Details Date Type Department Care Team (Late st Contact Info) Description 06/05/2024 Telephone Gynecology/Obstetrics [facility] [address] [place] [address] BackerLeena CRNP [address] [place] [address] Encounter Created in Error Allergies No known active allergiesdocumented as of [...] assessment of proteinuria (24-hour urine protein or ypiwflo-bx-ltukhjaqkj ratio) and CBC, serum AST/ALT/creatinine. If patient [...] money to get more. Never true 02/08/2024 [place] Depression Scale Answer Date Recorded [place] Depression Scale Total 0 12/13/2023 The thought [...] as of this encounter Plan of Treatment Health Maintenance [...]
--- OUTSIDE RECORDS SUMMARY | 2024-06-09 07:48 | External Medical Summary | Summary of Care ---
Author Name Unknown Organization [facility] Address [address] [facility] [address] Phone [phone] Care Team Providers Care Popcorn Machine Operator Name Role Phone Unavailable Primary Care Provider Unavailabl e Reason for Visit * Reason Comments Non Stress Test Healthy Beginnings Return Encounter Details Date Type Department Care Team (Late st Contact Info) Description 05/07/2024 9:45 AM EDT Office Visit Gynecology/Obstetric s [facility] [place] [address] [place] [address] Stacy Silva, DNP, CNM [address] [facility] [place] [phone] [place], Non Stress Tests D[facility] [address] [place] [address] Supervision of high risk , antepartum*; Chronic hypertension in ; Obesity affecting , antepartum, unspecified obesity type; Need for rubella vaccination; Health counseling; Supervision of high risk , antepartum [O09.90] Allergies No known active allergiesdocumented as of this encounter (statuses as of 05/07/2024) Medications Medication Sig Dispensed Refills Start Date [...] as of this encounter (statuses as of 05/07/2024) Active Problems Problem Noted Date Diagnosed Date Antepartum anemia complicating 024 Health counseling 02/07/2024 [...] or questions 04/24/2024 Elida Gaxiola RN 04/24/2024 Upper respiratory tract infection 01/24/2024 Sore throat [...] assessment of proteinuria (24-hour urine protein or ertbxtc-fk-ebxwqekydj ratio) and CBC, serum AST/ALT/creatinine. If patient [...] mg/dL 46 Last Assessment & Plan: BP currently stable without medication. Initiate therapy to maintain BP < 140/90. BP Readings from Last 5 Encounters: 03/07/24 136/88 02/15/24 130/82 02/08/24 142/87 02/07/24 126/82 01/24/24 124/80 Obesity affecting , antepartum 12/13/19 Overview: The [...] as of this encounter (statuses as of 05/07/2024) Resolved Problems Problem Noted Date Diagnosed Date Resolved Date with 15 completed weeks gestation 12/28/2023 02/07/2024 documented as of this encounter (statuses as of 05/07/2024) Immunizations Name Administration Dates Next Due TDAP [...] money to get more. Never true 02/08/2024 [place] Depression Scale Answer Date Recorded [place] Depression Scale Total 0 12/13/2023 The thought [...] Sign Reading Time Taken Comments Blood Pressure 128/82 05/07/2024 10:08 AM EDT Pulse - - Temperature - - Respiratory Rate - - Oxygen Saturation - - Inhaled Oxygen Concentration - - Weight 110.7 kg (244 lb) 05/07/2024 10:08 AM EDT Height - - Body Mass Index 40.6 04/02/2024 8:08 AM EDT documented in this encounter Progress Notes * Stacy Silva, WEI, CNM - 05/07/2024 11:27 AM EDT Selwyn Christian is a 29 year old female here for her routine OB appointment at 34w0d Her Estimated Date of Delivery: 06/18/24 REVIEW OF SYSTEMS: She affirms movement. Denies vaginal bleeding, LOF, contractions, N/V. Taking migraine cocktail which have kept them tolerable. Pt states headaches haven't worsened with . PHYSICAL EXAM: Filed Vitals: 05/07/24 1008 BP: 128/82 Weight: 110.7 kg (244 lb) ASSESSMENT assessment with Non-stress Test completed on 05/07/2024 at 34weeks gestation for indication ofchronic hypertension heart baseline: 135 bpm Variability: Moderate Decelerations: absent Accelerations: present Contractions: None NST start time: 0954 NST stop time: 1020 NST strip reviewed, interpreted, and approved by OB provider, Stacy Silva DNP, CNM . NST strip stored in clinic storage file ASSESSMENT/PLAN: (O09.90) , supervision, high-risk (primary encounter diagnosis) Plan: (O10.919) Chronic hypertension in Plan: - Labetalol 100mg BID (O99.210) Obesity affecting , antepartum, unspecified obesity type - Has growth US scheduled tomorrow with MFM - discussed GBS and to expect swab to be complete at next visit - labor precautions and kick counts reviewed - RTO in 1 weeks Stacy Silva DNP, CNM * Laurel Light MED ASSIST - 05/07/2024 10:08 AM EDT 34w0d Denies vaginal bleeding/rom + movements + contractions + occasional nausea/headaches No concerns documented in this encounter Plan of Treatment Upcoming Encounters Date Type Department Care Team (Late st Contact Info) Description 05/08/2024 8:45 AM EDT Imaging Maternal Medicine [facility] [address] [place] [phone] 05/16/2024 9:00 AM EDT Office Visit Gynecology/Obstetrics [facility] [place] [address] [place] [address] Dominique Cody PA-C [address] [place] [address] [place] [address] [place], Non Stress Tests Denny [address] [place] [address] 06/05/2024 8:45 AM EDT Imaging Maternal Medicine Imaging, [address] [place] [phone] Health Maintenance Due Date Last Done Comments [...] (2 - Td or Tdap) 04/02/2034 04/02/2024 HIV Screening Completed 12/13/2023 Hepatitis C Screening Completed 12/13/2023 , 12/13/2023, 12/13/2023 HPV (Gardasil) Vaccine Aged Out No lo [...] Visit Diagnoses Diagnosis Supervision of high risk , antepartum [O09.90]- Primary Chronic hypertension in Benign essential hypertension complicating , childbirth, and the puerperium, unspecified as to episode of care Obesity affecting , antepartum, unspecified obesity type Need for rubella vaccination Need for prophylactic vaccination and inoculation against rubella alone Health counseling Other specified counseling documented in this encounter
--- OUTSIDE RECORDS SUMMARY | 2024-06-09 07:48 | External Medical Summary ---
Author Name Unknown Address Unknown Organization K01:[facility] [place] [address] [facility] [place] [address] Laboratory Report Ordering Provider Test Date Status LUIS MANUEL COMER 04/24/2024 15:30:12 Final Observation Date Value Abnormality Reference (Units ) Status BUN 04/24/2024 15:30:12 7 6-20 (mg/dL) Final Creatinine 04/24/2024 15:30:12 0.5 0.5-1.0 (mg/dL) Final Glomerular filtration rate/1.73 sq M.predicted [Volume Rate/Area] in Serum, Plasma or Blood by Creatinine-based formula (CKD-EPI) 04/24/2024 15:30:12 >90 >=60 (mL/min) Final eGFR is calculated based on the CKD-EPI 2020 equation. Sodium 04/24/2024 15:30:12 136 135-146 (m mol/L) Final Potassium 04/24/2024 15:30:12 4.1 3.5-5.1 (m mol/L) Final Cl 04/24/2024 15:30:12 103 98-107 (mm ol/L) Final CO2 04/24/2024 15:30:12 19 Below low normal 22- 32 (mmol/L) Final Anion gap 04/24/2024 15:30:12 14 7-15 (mmol /L) Final Glucose 04/24/2024 15:30:12 75 70-120 (mg /dL) Final Albumin 04/24/2024 15:30:12 3.8 3.8-5.0 (g /dL) Final AST (Aspartate aminotransferase) 04/24/2024 15:30:12 28 10-35 (U/L) Fin al Alk Phos 04/24/2024 15:30:12 76 35-130 (U/ L) Final Bilirubin, Total 04/24/2024 15:30:12 0.2 <=1 .2 (mg/dL) Final Calcium 04/24/2024 15:30:12 9.8 8.4-10.2 ( mg/dL) Final Protein 04/24/2024 15:30:12 7.6 6.0-8.3 (g /dL) Final ALT (Alanine aminotransferase) 04/24/2024 15:30:12 15 10-35 (U/L) Jose berg Performing Location [facility] [place] [address] [facility] [address]
--- OUTSIDE RECORDS SUMMARY | 2024-06-09 07:48 | External Medical Summary | Summary of Care ---
Author Name Unknown Organization [facility] Address [address] [facility] [place] [address] Phone [phone] Care Team Providers Care Vice President Sales And Marketing Name Role Phone Unavailable Primary Care Provider Unavailabl e Reason for Visit * Reason Comments Outpatient Testing Encounter Details Date Type Department Care Team (Late st Contact Info) Description 04/24/2024 3:30 PM EDT Laboratory Laboratory, [facility] [address] [facility] [place] [phone] [facility] 132 [place] [address] Supervision of high risk in third trimester Allergies No known active allergiesdocumented as of this encounter (statuses as of 04/24/2024) Medications Medication Sig Dispensed Refills Start Date [...] as of this encounter (statuses as of 04/24/2024) Active Problems Problem Noted Date Diagnosed Date [...] assessment of proteinuria (24-hour urine protein or mbhmvfy-sn-xzeucftkvu ratio) and CBC, serum AST/ALT/creatinine. If patient [...] as of this encounter (statuses as of 04/24/2024) Resolved Problems Problem Noted Date Diagnosed Date Resolved Date with 15 completed weeks gestation 12/28/2023 02/07/2024 documented as of this encounter (statuses as of 04/24/2024) Immunizations Name Administration Dates Next Due TDAP [...] money to get more. Never true 02/08/2024 [place] Depression Scale Answer Date Recorded [place] Depression Scale Total 0 12/13/2023 The thought [...] Care Team (Late st Contact Info) Description 05/01/2024 10:30 AM EDT Office Visit Gynecology/Obstetrics [facility] [place] [address] [place] [address] Backer, BETSEY Kc [address] [place] [address] [place] Stress Tests Denny [address] [place] [address] 05/08/2024 8:45 AM EDT Imaging Maternal Medicine Imaging[facility] [place] [phone] 06/05/2024 8:45 AM EDT Imaging Maternal Medicine ImagingDennyil [place] [phone] Pending Results Name Type Priority Associated Diagnoses Date /Time CBC Lab Routine Supervision of high risk in third trimester 04/24/2024 3:30 PM EDT Health Maintenance Due Date Last Done Comments Hepatitis B Vaccine (1 of 3 - 19+ 3-dose series) 2013 COVID-19 Vaccine (2022-2 4 season) 2023 Influenza Vaccine (FLU shot) (#1) 2024 Depression Screening 01/23/2025 01/24/2024 GFR 04/21/2025 04/21/2024, 03/18/2024, 12/13/2023 Pap Smear 12/12/2026 12/13/2023 Cervical Cancer Screening 12/12/2028 HPV/Co-Test 12/12/2028 12/13/2023 DTaP,Tdap,and Td Vaccines (2 - Td or Tdap) 04/02/2034 04/02/2024 HPV (Gardasil) Vaccine Aged Out No lo nger eligible based on patient's age to complete this topic MENINGOCOCCAL (MENACTRA/MENVEO) Aged Out No longer eligible b ased on patient's age to complete this topic Pneumococcal Vaccine: Pediatrics (0 to 5 Years) and At-Risk Patients (6 to 64 Years) Aged Out No longer eligible b ased on patient's age to complete this topic documented as of this encounter Medical Devices Not on filedocumented as of this encounter Visit Diagnoses Diagnosis Supervision of high risk in third trimester Unspecified high-risk documented in this encounter
--- OUTSIDE RECORDS SUMMARY | 2024-06-09 07:48 | External Medical Summary | Summary of Care ---
Author Name Unknown Organization [facility] Address [address] [facility] [place] [address] Phone [phone] Care Team Providers Care Automobile Parts Assembler Name Role Phone Unavailable Primary Care Provider Unavailabl e Reason for Visit * Reason Comments Non Stress Test Healthy Beginnings Return Encounter Details Date Type Department Care Team (Late st Contact Info) Description 04/24/2024 2:00 PM EDT Office Visit Gynecology/Obstetric s [facility] [place] [address] [place] [address] Nola Meyer PA-C [address] [place] [address] [place], Non Stress Tests [facility] [address] [place] [address] Supervision of high risk in third trimester*; Chronic hypertension in ; Obesity affecting , antepartum, unspecified obesity type; Need for rubella vaccination; Proteinuria, unspecified type; Health counseling; Non-reactive NST (non-stress test); Heartburn Allergies No known active allergiesdocumented as of [...] assessment of proteinuria (24-hour urine protein or drrasvk-mo-ldzohksmrd ratio) and CBC, serum AST/ALT/creatinine. If patient [...] money to get more. Never true 02/08/2024 [place] Depression Scale Answer Date Recorded [place] Depression Scale Total 0 12/13/2023 The thought [...] Sign Reading Time Taken Comments Blood Pressure 126/62 04/24/2024 2:54 PM EDT Pulse - - Temperature - - Respiratory Rate - - Oxygen Saturation - - Inhaled Oxygen Concentration - - Weight 110.7 kg (244 lb) 04/24/2024 2:11 PM EDT Height - - Body Mass Index 40.6 04/02/2024 8:08 AM EDT documented in this encounter Progress Notes * Nola Meyer PA-C - 04/24/2024 2:49 PM EDT 32w1d ASSESSMENT assessment with Non-stress Test completed on 04/24/2024 at 32.1 weeks gestation for indicationof chronic hypertension on medication heart baseline: 125 bpm Variability: Moderate Decelerations: absent Accelerations: present, 1 that meets 15x15 Contractions: None NST start time: 14:01 NST stop time: 14:31 NST strip reviewed, interpreted, and approved by OB provider, Nola Meyer PA-C. NST strip stored in clinic storage file BPP 05/15, reviewed with patient. Started on Labetalol 100 mg BID following appointment 3 days ago. CMP, pr-cr normal. CBC not drawn. Patient BP elevated at first check 150/92, improved to 126/62 with recheck. Pt reports BP at home 130/80s. Denies elevations. Reports h/a with starting BP medications. Relived with Tylenol. None today. UA negative for proteins. Denies RUQ, epigastric, CP or SOB. Still with indigestion at night. Has been taking TUMS, but interested in alternative. Pepcid sent to pharmacy. Continue once weekly NST, repeat labs today. PEC precautions. Referral placed back to [facility] with last appointment. * Laurel Light MED ASSIST - 04/24/2024 2:11 PM EDT 32w1d Patient present for NST/CHIO. Denies vaginal bleeding/rom + movements + nausea/headaches, tries to not take medication and have the symptoms go away on their own. BP elevated at start of appointment 150/92, rechecked BP 126/62. Pt states BP has been elevated occasionally and will then lower back down. documented in this encounter Nursing Notes * Elida Gaxiola RN - 04/24/2024 3:02 PM EDT Patient seen by [facility] Hand Spinner. Patient denies any questions or concerns. documented in this encounter Plan of Treatment Upcoming Encounters Date Type Department Care Team (Late st Contact Info) Description 05/01/2024 10:30 AM EDT Office Visit Gynecology/Obstetrics [facility] [place] [address] [place] [address] Leena Huizar CRNP [address] [place] [address] [place] Stress Tests Denny [place] [address] 05/08/2024 8:45 AM EDT Imaging Maternal Medicine Imaging, [place]enny [address] [place] [phone] 06/05/2024 8:45 AM EDT Imaging Maternal Medicine Imaging, [place] [phone] Pending Results Name Type Priority Associated Diagnoses Date /Time PROTEIN/ CREATININE RATIO, URINE Lab Routine Supervision of high risk in third trimester Chronic hypertension in 04/24/2024 3:43 PM EDT COMPREHENSIVE METABOLIC PANEL Lab Routine Supervision of high risk in third trimester Chronic hypertension in 04/24/2024 3:30 PM EDT Health Maintenance Due Date Last Done Comments Hepatitis B Vaccine (1 of 3 - 19+ 3-dose series) 2013 COVID-19 Vaccine ( - 2022-2 4 season) 2023 Influenza Vaccine (FLU shot) [...] Procedure Name Priority Date/Time Associated Diagnosis Comments US BPP W/O NON-STRESS TEST Routine 04/24/2024 3:11 PM EDT Non-reactive NST (non-stress test) documented in this encounter Results * US BPP W/O NON-STRESS TEST (04/24/2024 3:11 PM EDT) Anatomical Region Laterality Modality Abdomen, Body Ultrasound 04/24/2024 4:13 PM EDT Impressions 04/24/2024 4:15 PM EDT IMPRESSION: 1. BPP score: 8 of 8. 2. Normal LISY. 3. Breech presentation. I have personally reviewed this examination and agree with the resident/fellow physician's interpretation. Narrative 04/24/2024 4:15 PM EDT EXAM: US BPP W/O NON-STRESS TEST - 04/24/2024 3:11 pm HISTORY: non reactive nst LMP: 08/24/2023 TECHNIQUE: Sonographic examination performed. COMPARISON: None FINDINGS: GENERAL : Lopez Presentation: Breech heart rate: 129 bpm Amniotic Fluid: Normal LISY: 20.8 cm which is between the 50th and 95th percentiles for this stage of . BIOPHYSICAL PROFILE breathing movement: 2 Gross body movement: 2 tone: 2 Qualitative AFV: 2 Total BPP score: 8 of 8. Procedure Note Ge Langley II, MD - 04/24/2024 EXAM: US BPP W/O NON-STRESS TEST - 04/24/2024 3:11 pm HISTORY: non reactive nst LMP: 08/24/2023 TECHNIQUE: Sonographic examination performed. COMPARISON: None FINDINGS: GENERAL : Lopez Presentation: Breech heart rate: 129 bpm Amniotic Fluid: Normal LISY: 20.8 cm which is between the 50th and 95th percentiles for this stageof . BIOPHYSICAL PROFILE breathing movement: 2 Gross body movement: 2 tone: 2 Qualitative AFV: 2 Total BPP score: 8 of 8. IMPRESSION IMPRESSION: 1. BPP score: 8 of 8. 2. Normal LISY. 3. Breech presentation. I have personally reviewed this examination and agree with the resident/fellow physician's interpretation. Nola Meyer PA-C RAD ULTRASOUND documented in this encounter Visit Diagnoses Diagnosis Supervision of high risk in third trimester- Primary Unspecified high-risk Chronic hypertension in Benign essential hypertension complicating , childbirth, and the puerperium, unspecified as to episode of care Obesity affecting , antepartum, unspecified obesity type Need for rubella vaccination Need for prophylactic vaccination and inoculation against rubella alone Proteinuria, unspecified type Health counseling Other specified counseling Non-reactive NST (non-stress test) Abnormal findings on screening Heartburn documented in this encounter
--- OUTSIDE RECORDS SUMMARY | 2024-06-09 07:48 | External Medical Summary | Summary of Care ---
Author Name Unknown Organization [facility] Address [address] [facility] [place] [address] Phone [phone] Care Team Providers Care Physical Fitness Teacher Name Role Phone Unavailable Primary Care Provider Unavailabl e Reason for Visit * Reason Comments Healthy Beginnings Return Non Stress Test Encounter Details Date Type Department Care Team (Late st Contact Info) Description 05/16/2024 9:00 AM EDT Office Visit Gynecology/Obstetric s [facility] [place] [address] [place] [address] Dominique Cody PA-C [address] [place] [phone] [place], Non Stress Tests [facility] [address] [place] [address] Supervision of high risk , antepartum*; Chronic hypertension in ; Gestational proteinuria in third trimester; Obesity affecting , antepartum, unspecified obesity type; Antepartum anemia complicating ; Polyhydramnios in third trimester complication, single or unspecified fetus; Need for rubella vaccination; Health counseling Allergies No known active allergiesdocumented as of this encounter (statuses as of 05/16/2024) Medications Medication Sig Dispensed Refills Start Date [...] as of this encounter (statuses as of 05/16/2024) Active Problems Problem Noted Date Diagnosed Date [...] any current needs or questions 04/24/2024 Elida Gaxioal RN 04/24/2024 Problem Action Taken Date entered Entered by Date resolved Current needs or questions Patient denies having any current needs or questions 05/16/2024 Ximena Pathak RN 05/16/2024 Upper respiratory tract infection 01/24/2024 Sore throat [...] assessment of proteinuria (24-hour urine protein or mbufqsg-fq-qisebnwdey ratio) and CBC, serum AST/ALT/creatinine. If patient [...] as of this encounter (statuses as of 05/16/2024) Resolved Problems Problem Noted Date Diagnosed Date Resolved Date with 15 completed weeks gestation 12/28/2023 02/07/2024 documented as of this encounter (statuses as of 05/16/2024) Immunizations Name Administration Dates Next Due TDAP [...] money to get more. Never true 02/08/2024 [place] Depression Scale Answer Date Recorded [place] Depression Scale Total 0 12/13/2023 The thought [...] Sign Reading Time Taken Comments Blood Pressure 124/82 05/16/2024 8:46 AM EDT Pulse - - Temperature - - Respiratory Rate - - Oxygen Saturation - - Inhaled Oxygen Concentration - - Weight 110.2 kg (243 lb) 05/16/2024 8:46 AM EDT Height 165.1 cm (5' 5") 05/16/2024 8:46 AM EDT Body Mass Index 40.44 05/16/2024 8:46 AM EDT documented in this encounter Progress Notes * Dominique Cody PA-C - 05/16/2024 9:32 AM EDT Selwyn Christian is a 29 year old female here for NST at 35w2d. Her Estimated Date of Delivery: 06/18/24 REVIEW OF SYSTEMS She affirms movement. Denies vaginal bleeding, LOF, contractions. PHYSICAL EXAM BP 124/82 | Ht 1.651 m (5' 5") | Wt 110.2 kg (243 lb) | LMP 08/24/2023 | BMI 40.44 kg/m | BSA 2.25 m ASSESSMENT assessment with Non-stress Test completed on 05/16/2024 at 35w2d weeks gestation for indicationof chronic hypertension heart baseline: 130s bpm Variability: Moderate Decelerations: absent Accelerations: present Contractions: None NST start time: 0855 NST stop time: 0930 NST strip reviewed, interpreted, and approved by OB provider, Dominique Cody PA-C. NST strip stored in clinic storage file ASSESSMENT/PLAN Supervision of high risk , antepartum (Primary) Chronic hypertension in - PROTEIN/ CREATININE RATIO, URINE Gestational proteinuria in third trimester - PROTEIN/ CREATININE RATIO, URINE Obesity affecting , antepartum, unspecified obesity type Antepartum anemia complicating Polyhydramnios in third trimester complication, single or unspecified fetus Need for rubella vaccination Health counseling Supervision of - discussed GBS and to expect swab to be complete at next visit - IOL scheduled 06/06 - baby continuing to be breech. Recommended [email or web address] - labor precautions and kick counts reviewed RTO in 1 week for CHIO/NST/GBS Dominique Cody PA-C 05/16/2024 documented in this encounter Nursing Notes * Ximena Pathak RN - 05/16/2024 9:46 AM EDT Patient seen by [facility]. documented in this encounter Miscellaneous Notes * Addendum Note - Marko Samson LPN - 05/16/2024 10:22 AM EDT Addended by: MARKO SAMSON on: 05/16/2024 10:22 AM Modules accepted: Orders documented in this encounter Plan of Treatment Upcoming Encounters Date Type Department Care Team (Late st Contact Info) Description 06/05/2024 8:45 AM EDT Imaging Maternal Medicine Imaging, [address] [place] [phone] Pending Results Name Type Priority Associated Diagnoses Date /Time PROTEIN/ CREATININE RATIO, URINE Lab Routine Chronic hypertension in Gestational proteinuria in third trimester 05/16/2024 10:21 AM EDT Health Maintenance Due Date Last Done [...] Comments URINALYSIS, POINT OF CARE (ENTER/EDIT) Routine 05/16/2024 Chronic hypertension in documented in this encounter Results * URINALYSIS, POINT OF CARE (ENTER/EDIT) (05/16/2024) Color, Urine Yellow Yellow or Light Yellow Clarity, Urine Clear Clear Glucose, Urine Negative Negative mg/dL Bilirubin, Urine Negative Negative Ketone, Urine Negative Negative mg/dL Specific [place], Urine 1.010 1.003 - 1.030 Blood, Urine Negative Negative pH, Urine 7.0 5.0 - 7.5 units Protein, Urine Negative Negative mg/dL Urobilinogen, Urine 0.2 0.2 - 1.0 mg/dL Nitrite, Urine Negative Negative Esterase, Urine Trace Negative Urine 05/16/2024 Dominique Cody PA-C LAB POINT OF CARE TEST ENTER/EDIT ORDERABLES documented in this encounter Visit Diagnoses Diagnosis Supervision of high risk , antepartum- Primary Chronic hypertension in Benign essential hypertension complicating , childbirth, and the puerperium, unspecified as to episode of care Gestational proteinuria in third trimester Unspecified antepartum renal disease Obesity affecting , antepartum, unspecified obesity type Antepartum anemia complicating Anemia, antepartum Polyhydramnios in third trimester complication, single or unspecified fetus Need for rubella vaccination Need for prophylactic vaccination and inoculation against rubella alone Health counseling Other specified counseling documented in this encounter
--- OUTSIDE RECORDS SUMMARY | 2024-06-09 07:48 | External Medical Summary | Summary of Care ---
Author Name Unknown Organization [facility] Address [address] [facility] [place] [address] Phone [phone] Care Team Providers Care A Operator Name Role Phone Unavailable Primary Care Provider Unavailabl e Encounter Details Date Type Department Care Team (Late st Contact Info) Description 02/08/2024 Telephone Track Supervisor Obstetrics Maternal Medicine, [place] [address] [place], [place] [phone] [place], Nurse Track Supervisor [facility] [address] [place], [place] [phone] Allergies No known active allergiesdocumented as of this encounter (statuses as of 05/09/2024) Medications Medication Sig Dispensed Refills Start Date [...] Additional Information Patient not taking.Reported on 02/07/2024 Ferrous Gluconate 240 (27 Fe) MG Oral Tablet (Iron 27) Take by mouth. 04/21/2024 Discontinu ed (Medication List Clean Up) documented as of this encounter (statuses as of 05/09/2024) Active Problems Problem Noted Date Diagnosed Date [...] assessment of proteinuria (24-hour urine protein or wvvzqyr-ip-qftvvqdgsv ratio) and CBC, serum AST/ALT/creatinine. If patient [...] as of this encounter (statuses as of 05/09/2024) Resolved Problems Problem Noted Date Diagnosed Date Resolved Date with 15 completed weeks gestation 12/28/2023 02/07/2024 documented as of this encounter (statuses as of 05/09/2024) Social History Tobacco Use Types Packs/Day Years [...] money to get more. Never true 02/08/2024 [place] Depression Scale Answer Date Recorded [place] Depression Scale Total 0 12/13/2023 The thought [...] encounter Miscellaneous Notes * Telephone Encounter - Era Matos OSA - 02/08/2024 3:53 PM EDT Spoke with Selwyn. Appointment scheduled. Patient aware of date, time and location of Maternal Medicine appointment. * Telephone Encounter - Era Matos OSA - 02/08/2024 12:38 PM EDT Phone call to patient. Left message on [employer]'s voice mail. Encouraged patient to return call to [facility] to assist with scheduling follow up growth scans. documented in this encounter Plan of Treatment Upcoming Encounters Date Type Department Care Team (Late st Contact Info) Description 05/16/2024 9:00 AM EDT Office Visit Gynecology/Obstetrics [facility] [address] [place] [address] Dominique Cody PA-C [address] [place] [address] [place], Non Stress Tests [facility] [address] [place] [address] 06/05/2024 8:45 AM EDT Imaging Maternal Medicine [...]
--- OUTSIDE RECORDS SUMMARY | 2024-06-09 07:48 | External Medical Summary | Summary of Care ---
Author Name Unknown Organization [facility] Address [address] [facility] [address] Phone [phone] Care Team Providers Care Loan Underwriter Name Role Phone Unavailable Primary Care Provider Unavailabl e Encounter Details Date Type Department Care Team (Late st Contact Info) Description 04/23/2024 Orders Only Gynecology/Obstetrics [facility] [place] [address] [place] [address] Nola Meyer PA-C [address] [place] [address] Supervision of high risk in third trimester* Allergies No known active allergiesdocumented as of this encounter (statuses as of 04/23/2024) Medications Medication Sig Dispensed Refills Start Date [...] as of this encounter (statuses as of 04/23/2024) Active Problems Problem Noted Date Diagnosed Date [...] or questions 04/21/2024 Elida Gaxiola RN 04/21/2024 . Upper respiratory tract infection 01/24/2024 Sore throat [...] assessment of proteinuria (24-hour urine protein or oiigytf-ox-buxynnpeps ratio) and CBC, serum AST/ALT/creatinine. If patient [...] as of this encounter (statuses as of 04/23/2024) Resolved Problems Problem Noted Date Diagnosed Date Resolved Date with 15 completed weeks gestation 12/28/2023 02/07/2024 documented as of this encounter (statuses as of 04/23/2024) Immunizations Name Administration Dates Next Due TDAP [...] money to get more. Never true 02/08/2024 [place] Depression Scale Answer Date Recorded [place] Depression Scale Total 0 12/13/2023 The thought [...] Team (Late st Contact Info) Description 04/24/2024 1:15 PM EDT Office Visit Gynecology/Obstetrics [facility] [address] [place] [address] Nola Meyer PA-C [address] [place] [address] [place] Non Stress Tests [facility] [address] [place] [address] 05/08/2024 8:45 AM EDT Imaging Maternal Medicine Imaging, [facility] [address] [place] [phone] 06/05/2024 8:45 AM EDT Imaging Maternal Medicine Imaging, [facility] [address] [place] [phone] Scheduled Orders Name Type Priority Associated Diagnoses Orde r Schedule CBC Lab Routine Supervision of high risk in third trimester Expected: 04/23/2024, Expires: 04/23/2025 Health Maintenance Due Date Last Done Comments [...] risk in third trimester- Primary Unspecified high-risk documented in this encounter
--- OUTSIDE RECORDS SUMMARY | 2024-06-09 07:48 | External Medical Summary | Summary of Care ---
Author Name Unknown Organization [facility] Address [address] [facility] [address] Phone [phone] Care Team Providers Care Fur Sorter Name Role Phone Unavailable Primary Care Provider Unavailabl e Reason for Visit * Reason Comments Non Stress Test Healthy Beginnings Return Encounter Details Date Type Department Care Team (Late st Contact Info) Description 05/01/2024 10:30 AM EDT Office Visit Gynecology/Obstetric s [facility] [place] [address] [place] [phone] Leena Huizar CRNP [address] [place] [address] [place], Non Stress Tests [facility] [address] [place] [address] Supervision of high risk in third trimester*; Chronic hypertension in ; Obesity affecting , antepartum, unspecified obesity type; Need for rubella vaccination; Gestational proteinuria in third trimester; Health counseling Allergies No known active allergiesdocumented as of this encounter (statuses as of 05/01/2024) Medications Medication Sig Dispensed Refills Start Date [...] as of this encounter (statuses as of 05/01/2024) Active Problems Problem Noted Date Diagnosed Date [...] assessment of proteinuria (24-hour urine protein or hnmetfn-yz-gmdtlcopxp ratio) and CBC, serum AST/ALT/creatinine. If patient [...] as of this encounter (statuses as of 05/01/2024) Resolved Problems Problem Noted Date Diagnosed Date Resolved Date with 15 completed weeks gestation 12/28/2023 02/07/2024 documented as of this encounter (statuses as of 05/01/2024) Immunizations Name Administration Dates Next Due TDAP [...] money to get more. Never true 02/08/2024 [place] Depression Scale Answer Date Recorded [place] Depression Scale Total 0 12/13/2023 The thought [...] Sign Reading Time Taken Comments Blood Pressure 138/78 05/01/2024 10:49 AM EDT Pulse - - Temperature - - Respiratory Rate - - Oxygen Saturation - - Inhaled Oxygen Concentration - - Weight 110.6 kg (243 lb 12.8 oz) 2023 10:49 AM EDT Height - - Body Mass Index 40.57 04/02/2024 8:08 AM EDT documented in this encounter Progress Notes * Laurel Light MED ASSIST - 05/01/2024 10:49 AM EDT Patient present for NST 33w1d Denies vaginal bleeding/rom + movements Denies any concerns * Leena Huizar CRNP - 05/01/2024 10:36 AM EDT ASSESSMENT assessment with Non-stress Test completed on 05/01/2024 at 33.1 weeks gestation for indicationof chronic hypertension heart baseline: 130 bpm Variability: Moderate Decelerations: absent Accelerations: present Contractions: None NST start time: 1022 NST stop time: 1100 NST strip reviewed, interpreted, and approved by OB provider, BETSEY Roland . NST strip stored in clinic storage file documented in this encounter Plan of Treatment Upcoming Encounters Date Type Department Care Team (Late st Contact Info) Description 05/08/2024 8:45 AM EDT Imaging Maternal Medicine Imaging, [place] [place] [address] [place] [phone] 06/05/2024 8:45 AM EDT Imaging Maternal Medicine Imaging, [place] [address] [place] [phone] Health Maintenance Due Date Last Done Comments [...] prophylactic vaccination and inoculation against rubella alone Gestational proteinuria in third trimester Unspecified antepartum renal disease Health counseling Other specified counseling documented in this encounter
--- OUTSIDE RECORDS SUMMARY | 2024-06-09 07:48 | External Medical Summary | Summary of Care ---
Author Name Unknown Organization [facility] Address [address] [place] [address] Phone [phone] Care Team Providers Care Unclaimed Property Officer Name Role Phone Unavailable Primary Care Provider Unavailabl e Encounter Details Date Type Department Care Team (Late st Contact Info) Description 05/08/2024 8:45 AM EDT Office Visit Motor Checker Obstetrics Maternal Medicine, [address] [place] [address] Thu Toure, DO [address] [place] [address] Obesity affecting , antepartum, unspecified obesity type*; Chronic hypertension in ; Ultrasound for screening for growth restriction; 34 weeks gestation of ; Polyhydramnios in third trimester complication, single or unspecified fetus Allergies No known active allergiesdocumented as of this encounter (statuses as of 05/08/2024) Medications Medication Sig Dispensed Refills Start Date [...] as of this encounter (statuses as of 05/08/2024) Active Problems Problem Noted Date Diagnosed Date [...] assessment of proteinuria (24-hour urine protein or udblxzn-fj-hiyvkzqtys ratio) and CBC, serum AST/ALT/creatinine. If patient [...] as of this encounter (statuses as of 05/08/2024) Resolved Problems Problem Noted Date Diagnosed Date Resolved Date with 15 completed weeks gestation 12/28/2023 02/07/2024 documented as of this encounter (statuses as of 05/08/2024) Immunizations Name Administration Dates Next Due TDAP [...] money to get more. Never true 02/08/2024 [place] Depression Scale Answer Date Recorded [place] Depression Scale Total 0 12/13/2023 The thought [...] Progress Notes * Thu Toure, DO - 05/08/2024 9:36 AM EDT MATERNAL MEDICINE VISIT Patient location: CLINIC. I was not in a hospital or clinic location. After connecting through televideo, patient was verified with two unique identifiers. Patient (or authorized legal telephone sales representative) was then informed that this was a Telemedicine visit and being conducted confidentially over secure lines. My office door was closed. No one else was in the room with me. Patient acknowledged consent and understanding of privacy and security of the Telemedicine visit, and gave permission to have atelemedicine presenter stay in the room in order to assist with the history and to conduct the examas needed. I informed the patient that I have reviewed their record in [facility] [employer] and presented the opportunity for them to ask any questions regarding the visit today. The patient agreed to participate. Selwyn Christian presented today at 34w1d for an ultrasound and follow-up of her high risk . She was seen for the following indications: Problem List Items Addressed This Visit Chronic hypertension in BP Readings from Last 5 Encounters: 05/07/24 128/82 05/01/24 138/78 04/24/24 126/62 04/21/24 132/90 04/04/24 136/94 Stable on labetalol 100 mg bid. Obesity affecting , antepartum - Primary Polyhydramnios in third trimester CONSIDERATIONS: Polyhydramnios is the presence of elevated [...] delivery at 38-39 weeks pending BP control. Other Visit Diagnoses Ultrasound for screening for growth restriction 34 weeks gestation of We reviewed today's ultrasound findings. Patient presented at 34w 1d for growth assessment. Normal growth with EFW 2446 g at 55%ile. Increased LISY at 25.9 cm. Transverse, Head Maternal Left presentation. (For full details, please refer to ultrasound report provided separately). Ms. Christian's questions were answered to her satisfaction. She was advised to contact our office or her OB provider for any additional questions regarding her . RECOMMENDATIONS: Recommend follow up ultrasound with MFM in 4 weeks for growth secondary to above indications. Thank you for allowing us to participate in the care of this patient. Please call with any questions. I spent a total of 25 minutes on the date of service in preparation, delivery, and documentation ofthe care provided to Selwyn Christian excluding any time spent in the performance of separately billed services. Thu Toure DO 05/08/2024 9:36 AM documented in this encounter Miscellaneous Notes * Assessment & Plan Note - Thu Toure DO - 05/08/2024 9:36 AM EDT Associated Problem(s): Polyhydramnios in third trimester CONSIDERATIONS: Polyhydramnios is the presence of elevated [...] delivery at 38-39 weeks pending BP control. * Assessment & Plan Note - Thu Toure DO - 05/08/2024 9:29 AM EDT Associated Problem(s): Chronic hypertension in BP Readings from Last 5 Encounters: 05/07/24 128/82 05/01/24 138/78 04/24/24 126/62 04/21/24 132/90 04/04/24 136/94 Stable on labetalol 100 mg bid. documented in this encounter Plan of Treatment Upcoming Encounters Date Type Department Care Team (Late st Contact Info) Description 05/16/2024 9:00 AM EDT Office Visit Gynecology/Obstetrics [facility] [place] [address] [place] [address] Dominique Cody PA-C [address] [place] [address] [place] Stress Tests [place] [address] 06/05/2024 8:45 AM EDT Imaging Maternal Medicine Imaging, [place] [phone] Scheduled Orders Name Type Priority Associated Diagnoses Orde r Schedule MFM US PREG FOLLOW UP EACH FETUS Medical Imaging Routine Obesity affecting , antepartum, unspecified obesity type Chronic hypertension in Ultrasound for screening for growth restriction 34 weeks gestation of Polyhydramnios in third trimester complication, single or unspecified fetus 6 Occurrences starting 05/08/2024 until 11/08/2024 Health Maintenance Due Date Last Done Comments Hepatitis B Vaccine (1 of 3 - 19+ 3-dose series) 2013 COVID-19 Vaccine ( - season) 2023 Influenza Vaccine (FLU shot) (#1) [...] affecting , antepartum, unspecified obesity type- Primary Chronic hypertension in Benign essential hypertension complicating , childbirth, and the puerperium, unspecified as to episode of care Ultrasound for screening for growth restriction screening for growth retardation using ultrasonics 34 weeks gestation of state, incidental Polyhydramnios in third trimester complication, single or unspecified fetus documented in this encounter
--- OUTSIDE RECORDS SUMMARY | 2024-06-09 07:48 | External Medical Summary | Summary of Care ---
Author Name Unknown Organization [facility] Address [address] [facility] [place] [address] Phone [phone] Care Team Providers Care Vice President Of Customer Service Name Role Phone Unavailable Primary Care Provider Unavailabl e Reason for Visit * Reason Onset Date Comments Follow Up 05/08/2024 Encounter Details Date Type Department Care Team (Late st Contact Info) Description 05/08/2024 Telephone Gynecology/Obstetrics [facility] [address] [place] [address] BackerLeena CRNP [address] [place] [address] Follow Up Allergies No known active allergiesdocumented as of this encounter (statuses as of 05/12/2024) Medications Medication Sig Dispensed Refills Start Date [...] as of this encounter (statuses as of 05/12/2024) Active Problems Problem Noted Date Diagnosed Date [...] assessment of proteinuria (24-hour urine protein or rudrock-dn-snvbiqsotj ratio) and CBC, serum AST/ALT/creatinine. If patient [...] as of this encounter (statuses as of 05/12/2024) Resolved Problems Problem Noted Date Diagnosed Date Resolved Date with 15 completed weeks gestation 12/28/2023 02/07/2024 documented as of this encounter (statuses as of 05/12/2024) Immunizations Name Administration Dates Next Due TDAP [...] money to get more. Never true 02/08/2024 [place] Depression Scale Answer Date Recorded [place] Depression Scale Total 0 12/13/2023 The thought [...] Telephone Encounter - Robyn David LPN - 05/08/2024 4:18 PM EDT Pt called back and she verbalized understanding. Please call pt and get her scheduled for glucose with her next charlene visit * Telephone Encounter - Elida Gaxiola RN - 05/08/2024 11:15 AM EDT Attempted to call patient. No answer, LVM to return call. * Telephone Encounter - Leena Huizar CRNP - 05/08/2024 11:09 AM EDT Received MFM note from today, polyhydramnios on u/s. Recommending a repeat glucose test. Please notify pt and assist in scheduling this. BETSEY Roland documented in this encounter Plan of Treatment Upcoming Encounters Date Type Department Care Team (Late st Contact Info) Description 05/16/2024 9:00 AM EDT Office Visit Gynecology/Obstetrics [facility] [place] [address] [place] [address] Dominique Cody PA-C [address] [place] [address] [place] [address] [place] [facility] Tests [place] [phone] 06/05/2024 8:45 AM EDT Imaging Maternal Medicine Imaging, [place] [phone] Scheduled Orders Name Type Priority Associated Diagnoses Orde r Schedule 50-G GESTATIONAL GLUCOSE, 1 HOUR Lab Routine Supervision of high risk in third trimester Polyhydramnios in third trimester complication, single or unspecified fetus Expected: 05/08/2024, Expires: 05/08/2025 Health Maintenance Due Date Last Done Comments [...] risk in third trimester- Primary Unspecified high-risk Polyhydramnios in third trimester complication, single or unspecified fetus documented in this encounter
--- OUTSIDE RECORDS SUMMARY | 2024-06-09 07:48 | External Medical Summary ---
Author Name Unknown Address Unknown Organization [id number]:[facility] [address] [place] [address] Laboratory Report Ordering Provider Test Date Status LUIS MANUEL COMER 04/24/2024 15:30:12 Final Observation Date Value Abnormality Reference (Units ) Status WBC, Total 04/24/2024 15:30:12 9.69 4.00-10.8 0 (K/uL) Final RBC 04/24/2024 15:30:12 3.90 3.85-5.15 (M/uL) Final Hemoglobin 04/24/2024 15:30:12 11.0 Below low normal 12 .0-15.3 (g/dL) Final HCT 04/24/2024 15:30:12 33.3 Below low normal 36. 0-45.2 (%) Final MCV 04/24/2024 15:30:12 85.4 81.5-97.5 (fL) Final MCH 04/24/2024 15:30:12 28.2 27.0-34.0 (pg) Final MCHC 04/24/2024 15:30:12 33.0 32.0-36.0 (g/dL) Final RDW 04/24/2024 15:30:12 14.3 11.5-15.5 (%) Final Platelets 04/24/2024 15:30:12 184 140-400 (K /uL) Final MPV 04/24/2024 15:30:12 9.8 6.6-11.1 ( fL) Final Performing Location [facility] 0 [address] [place] [address]
--- OUTSIDE RECORDS SUMMARY | 2024-06-09 07:48 | External Medical Summary | Summary of Care ---
Author Name Unknown Organization [facility] Address [address] [facility] [place] [address] Phone [phone] Care Team Providers Care Case Resolution Specialist Name Role Phone Unavailable Primary Care Provider Unavailabl e Reason for Visit * Reason Comments Healthy Beginnings Return Non Stress Test Encounter Details Date Type Department Care Team (Late st Contact Info) Description 05/16/2024 9:00 AM EDT Office Visit Gynecology/Obstetric s [facility] [place] [address] [place] [address] Dominique Cody PA-C [address] [place] [phone] [place], Non Stress Tests [facility] [address] [place] [address] Supervision of high risk , antepartum*; Chronic [...] 8 cm. Polyhydramnios is categorized as: Mild LIYS of 24.0-29.9 cm Moderate LISY of 30.0-34.9 [...] assessment of proteinuria (24-hour urine protein or gnsxiip-qr-wpffwsxjzl ratio) and CBC, serum AST/ALT/creatinine. If patient [...] money to get more. Never true 02/08/2024 [place] Depression Scale Answer Date Recorded [place] Depression Scale Total 0 12/13/2023 The thought [...] - baby continuing to be breech. Recommended [email or web address] - labor precautions and kick counts reviewed RTO in 1 week for CHIO/NST/GBS Dominique Cody PA-C 05/16/2024 documented in this encounter Nursing Notes * Ximena Pathak RN - 05/16/2024 9:46 AM EDT Patient seen by [facility] Small Stock Facer. documented in this encounter Plan of Treatment Upcoming Encounters Date Type Department Care Team (Late st Contact Info) Description 06/05/2024 8:45 AM EDT Imaging Maternal Medicine [facility], [address] [place] [address] Scheduled Orders Name Type Priority Associated Diagnoses Orde r Schedule PROTEIN/ CREATININE RATIO, URINE Lab Routine Chronic hypertension in Gestational proteinuria in third trimester Ordered: 05/16/2024 Health Maintenance Due Date Last Done Comments [...]
--- OUTSIDE RECORDS SUMMARY | 2024-06-09 07:48 | External Medical Summary | Summary of Care ---
Author Name Unknown Organization [facility] Address [address] [facility] [address] Phone [phone] Care Team Providers Care Tig Welder Name Role Phone Unavailable Primary Care Provider Unavailabl e Reason for Visit * Reason Onset Date Comments Follow Up 05/08/2024 Encounter Details Date Type Department Care Team (Late st Contact Info) Description 05/08/2024 Telephone Gynecology/Obstetrics [facility] [address] [place] [address] BackerLeena CRNP [address] [facility] [place] [address] Follow Up Allergies No known active allergiesdocumented [...] assessment of proteinuria (24-hour urine protein or kmthaon-pr-nlnvitheus ratio) and CBC, serum AST/ALT/creatinine. If patient [...] money to get more. Never true 02/08/2024 [place] Depression Scale Answer Date Recorded [place] Depression Scale Total 0 12/13/2023 The thought [...] encounter Miscellaneous Notes * Telephone Encounter - Elida Gaxiola RN [...] Visit Gynecology/Obstetrics [facility] [place] [address] [place] [address] Dominique Cody PA-C [address] [place] [address] [place] Stress Tests [facility] [address] [place] [address] 06/05/2024 8:45 AM EDT Imaging Maternal Medicine [...]
--- OUTSIDE RECORDS SUMMARY | 2024-06-09 07:48 | External Medical Summary | Summary of Care ---
Author Name Unknown Organization [facility] Address [address] [facility] [place] [address] Phone [phone] Care Team Providers Care Quarter Backer Name Role Phone Unavailable Primary Care Provider Unavailabl e Reason for Visit * Reason Comments Non Stress Test Healthy Beginnings Return Encounter Details Date Type Department Care Team (Late st Contact Info) Description 05/07/2024 9:45 AM EDT Office Visit Gynecology/Obstetric s [facility] [place] [address] [place] [address] Stacy Silva, DNP, CNM [address] [facility] [place] [phone] [place], Non Stress Tests [facility] [address] [place] [address] Supervision of high risk , antepartum*; Chronic [...] assessment of proteinuria (24-hour urine protein or kmifjux-po-bimqwsaeyg ratio) and CBC, serum AST/ALT/creatinine. If patient [...] money to get more. Never true 02/08/2024 [place] Depression Scale Answer Date Recorded [place] Depression Scale Total 0 12/13/2023 The thought [...] Visit Gynecology/Obstetrics [facility] [place] [address] [place] [address] Dominique Cody PA-C [address] [place] [address] [place] [address] [place], Non Stress Tests [place] [address] 06/05/2024 8:45 AM EDT Imaging Maternal Medicine Imaging, [place] [phone] Health Maintenance Due Date Last Done Comments [...]
--- OUTSIDE RECORDS SUMMARY | 2024-06-09 07:48 | External Medical Summary ---
Author Name Unknown Address Unknown Organization K0G[facility] - [address] [place] [address] Laboratory Report Ordering Provider Test Date Status JAIMEE GRESHAMJUAN C 05/16/2024 09:51:04 Final Observation Date Value Abnormality Reference (Units ) Status Glucose [Moles/volume] in Serum or Plasma --1 hour post 50 g glucose PO 05/16/2024 09:51:04 109 70-129 (mg/dL) Final Performing Location [facility] [address] - [address] [place] [address]
--- OUTSIDE RECORDS SUMMARY | 2024-06-09 07:48 | External Medical Summary | Summary of Care ---
Author Name Unknown Organization [facility] Address [address] [facility] [address] Phone [phone] Care Team Providers Care Geophysical Prospecting Surveyor Name Role Phone Unavailable Primary Care Provider Unavailabl e Reason for Visit * Reason Comments Non Stress Test Healthy Beginnings Return Encounter Details Date Type Department Care Team (Late st Contact Info) Description 05/01/2024 10:30 AM EDT Office Visit Gynecology/Obstetric s [facility] [place] [address] [place] [address] Leena Huizar CRNP [address] [place] [address] [place], Non Stress Tests [place] [address] [place] [address] Supervision of high risk in third trimester*; [...] assessment of proteinuria (24-hour urine protein or ucsxoeg-hq-zkkttqykvw ratio) and CBC, serum AST/ALT/creatinine. If patient [...] money to get more. Never true 02/08/2024 [place] Depression Scale Answer Date Recorded [place] Depression Scale Total 0 12/13/2023 The thought [...] documented in this encounter Progress Notes * Raza Light MED ASSIST - 05/01/2024 10:49 AM [...] clinic storage file documented in this encounter Miscellaneous Notes * Addendum Note - Raza Light MED ASSIST - 05/01/2024 11:36 AM EDTAddended by: RAZA LIGHT on: 05/01/2024 11:36 AM Modules accepted: Orders documented in this encounter Plan of Treatment Upcoming Encounters Date Type Department Care Team (Late st Contact Info) Description 05/08/2024 8:45 AM EDT Imaging Maternal Medicine Imaging, [place] [place] [address] [place] [phone] 06/05/2024 8:45 AM EDT Imaging Maternal Medicine Imaging, [place] [address] [place] [phone] Health Maintenance Due Date Last Done Comments [...] Comments URINALYSIS, POINT OF CARE (ENTER/EDIT) Routine 05/01/2024 Supervision of high risk in third trimester Chronic hypertension in documented in this encounter Results * URINALYSIS, POINT OF CARE (ENTER/EDIT) (05/01/2024) Color, Urine Yellow Yellow or Light Yellow Clarity, Urine Clear Clear Glucose, Urine Negative Negative mg/dL Bilirubin, Urine Negative Negative Ketone, Urine Negative Negative mg/dL Specific Clune, Urine 1.020 1.003 - 1.030 Blood, Urine Negative Negative pH, Urine 7.0 5.0 - 7.5 units Protein, Urine Negative Negative mg/dL Urobilinogen, Urine 0.2 0.2 - 1.0 mg/dL Nitrite, Urine Negative Negative Esterase, Urine Negative Negative Urine 05/01/2024 Leena LEGGETT LAB POINT O F CARE TEST ENTER/EDIT ORDERABLES documented in this [...]
--- OUTSIDE RECORDS SUMMARY | 2024-06-09 07:48 | External Medical Summary ---
Author Name Unknown Address Unknown Organization K01:[facility] [address] [place] [address] Laboratory Report Ordering Provider Test Date Status NAHOMILUIS MANUEL 04/24/2024 15:43:16 Final Normal: <150 mg/ g creatinine
High: 150-500 mg/g creatinine
Very High: >500 mg/g creatinine
Nephrotic: >3000 mg/g creatinine Observation Date Value Abnormality Reference (Units ) Status Protein/Creatinine [Ratio] in Urine 04/24/2024 15:43:16 262 Above high normal <150 (mg/g ) Final Protein, Urine 04/24/2024 15:43:16 17 (mg/dL) Final Creatinine, Urine 04/24/2024 15:43:16 65 (mg/dL) Final Performing Location [facility] [address] [place] [address]
--- OUTSIDE RECORDS SUMMARY | 2024-06-09 07:48 | External Medical Summary | Summary of Care ---
Author Name Unknown Organization [facility] Address [address] [facility] [place] [address] Phone [phone] Care Team Providers Care Opinion Polls Survey Worker Name Role Phone Unavailable Primary Care Provider Unavailabl e Reason for Visit * Reason Comments Outpatient Testing Encounter Details Date Type Department Care Team (Late st Contact Info) Description 05/16/2024 9:00 AM EDT Laboratory Laboratory, [facility] [phone] [facility] [address] [address] Supervision of high risk in third trimester; Polyhydramnios in third trimester complication, single or [...] assessment of proteinuria (24-hour urine protein or slccjwq-sy-kkctaausom ratio) and CBC, serum AST/ALT/creatinine. If patient [...] money to get more. Never true 02/08/2024 [place] Depression Scale Answer Date Recorded [place] Depression Scale Total 0 12/13/2023 The thought [...] 8:45 AM EDT Imaging Maternal Medicine Imaging, [facility] 132 [facility] [place] [phone] Pending Results Name Type Priority Associated Diagnoses Date /Time 50-G GESTATIONAL GLUCOSE, 1 HOUR Lab Routine Supervision of high risk in third trimester Polyhydramnios in third trimester complication, single or unspecified fetus 05/16/2024 9:51 AM EDT Health Maintenance Due Date Last [...] high risk in third trimester Unspecified high-risk Polyhydramnios in third trimester complication, single or unspecified fetus documented in this encounter
--- OUTSIDE RECORDS SUMMARY | 2024-06-09 07:48 | External Medical Summary ---
Author Name Unknown Address Unknown Organization K01:[facility] [place] - [address] [place] [address] Laboratory Report Ordering Provider Test Date Status GABY MAYORGA 05/16/2024 10:21:20 Final Normal: <150 mg/ g creatinine
High: 150-500 mg/g creatinine
Very High: >500 mg/g creatinine
Nephrotic: >3000 mg/g creatinine Observation Date Value Abnormality Reference (Units) Status Protein, Urine 05/16/2024 10:21:20 <4 (mg/dL) Final Creatinine, Urine 05/16/2024 10:21:20 13 (mg/dL) Final PROTEIN/CREATININE RATIO, HIDE 05/16/2024 10:21:20 Uninterpretable Protein/Creatinine ratio due to very low protein and creatinine values. (mg/g) Final Performing Location [facility] - [address] [place] [address]
--- OUTSIDE RECORDS SUMMARY | 2024-06-09 07:48 | External Medical Summary | Summary of Care ---
Author Name Unknown Organization [facility] Address [address] [place] [address] Phone [phone] Care Team Providers Care Glass Or Mirror Inspector Name Role Phone Unavailable Primary Care Provider Unavailabl e Encounter Details Date Type Department Care Team (Late st Contact Info) Description 05/08/2024 8:45 AM EDT Office Visit Desk Sergeant Obstetrics Maternal Medicine, [address] [place] [address] Thu Toure, DO [address] [place] [address] Obesity affecting , antepartum, unspecified [...] assessment of proteinuria (24-hour urine protein or tcfwoxl-is-gdmhvddsfm ratio) and CBC, serum AST/ALT/creatinine. If patient [...] money to get more. Never true 02/08/2024 [place] Depression Scale Answer Date Recorded [place] Depression Scale Total 0 12/13/2023 The thought [...] two unique identifiers. Patient (or authorized legal branch service representative) was then informed that this was [...] that I have reviewed their record in [facility] and presented the opportunity for them to [...] Visit Gynecology/Obstetrics [facility] [place] [address] [place] [address] Dominique Cody PA-C [address] [place] [address] [place] Stress Tests [place] [address] 06/05/2024 8:45 AM EDT Imaging Maternal Medicine Imaging, [place] [phone] Scheduled Orders Name Type Priority Associated Diagnoses [...]
--- OUTSIDE RECORDS SUMMARY | 2024-06-09 07:48 | External Medical Summary | Summary of Care ---
Author Name Unknown Organization [facility] Address [address] [facility] [address] Phone [phone] Care Team Providers Care Credit Analyst Name Role Phone Unavailable Primary Care Provider Unavailabl e Reason for Visit * Reason Onset Date Comments Follow Up 05/08/2024 Encounter Details Date Type Department Care Team (Late st Contact Info) Description 05/08/2024 Telephone Gynecology/Obstetrics [facility] [address] [place] [address] BackerLeena CRNP [address] [facility] [place] [address] Follow Up Allergies No known active allergiesdocumented [...] assessment of proteinuria (24-hour urine protein or pxsjxjl-py-cliwmwpddb ratio) and CBC, serum AST/ALT/creatinine. If patient [...] money to get more. Never true 02/08/2024 [place] Depression Scale Answer Date Recorded [place] Depression Scale Total 0 12/13/2023 The thought [...] Visit Gynecology/Obstetrics [facility] [place] [address] [place] [address] Dominique Cody PA-C [address] [place] [address] [place] [address] [place] Stress Tests [place] [address] 06/05/2024 8:45 AM EDT Imaging Maternal Medicine [...]
--- OUTSIDE RECORDS SUMMARY | 2024-06-09 07:49 | External Medical Summary ---
Author Name Unknown Address Unknown Organization K0G[facility] 57[facility] - [address] [place] [address] Laboratory Report Ordering Provider Test Date Status ALDO GRESHAM 03/18/2024 10:49:51 Final Observation Date Value Abnormality Reference (Units ) Status Glucose [Moles/volume] in Serum or Plasma --1 hour post 50 g glucose PO 03/18/2024 10:49:51 121 70-129 (mg/dL) Final Performing Location [facility] 0 - [address] [place] [address]
--- OUTSIDE RECORDS SUMMARY | 2024-06-09 07:49 | External Medical Summary | Summary of Care ---
Author Name Unknown Organization [facility] Address [address] [facility] [place] [address] Phone [phone] Care Team Providers Care Railroad Operating Engineer Name Role Phone Unavailable Primary Care Provider Unavailabl e Reason for Visit * Reason Comments Return Visit Encounter Details Date Type Department Care Team (Late st Contact Info) Description 04/02/2024 8:00 AM EDT Office Visit Gynecology/Obstetri [facility] [place] [address] [place] [address] Dina Carbajal CRNP [address] [place] [address] Nurse Issac Healthy Beginnings Return [place] [address] [place] [address] Supervision of high risk in third trimester*; Chronic hypertension in ; Obesity affecting , antepartum, unspecified obesity type; Need for rubella vaccination; Proteinuria, unspecified type; Health counseling; Need for prophylactic vaccination with combined ewftbaqoia-qrnzomo-bz rtussis (DTP) vaccine Allergies No known active allergiesdocumented as of this encounter (statuses as of 04/02/2024) Medications Medication Sig Dispensed Refills Start Date End Date Status Gummies 0.18-25 MG Oral Tablet Chewable Take by mouth. Activ e Ferrous Gluconate 240 (27 Fe) MG Oral Tablet (Iron 27) Take by mouth. Acti ve Magnesium 400 MG Oral Tablet Take by [...] Additional Information Patient not taking.Reported on 02/07/2024 documented as of this encounter (statuses as of 04/02/2024) Active Problems Problem Noted Date Diagnosed Date [...] or questions 03/18/2024 Ximena Pathak RN 03/18/2024 Upper respiratory tract infection 01/24/2024 Sore throat [...] Elevated BP 140/90 at NOB visit (13w) Currently not on medication Recommend starting daily low dose ASA Recommendations: Obtain baseline lab work ABIGAIL (if not already done) with assessment of proteinuria (24-hour urine protein or brqfiye-gc-mlnpommjye ratio) and CBC, serum AST/ALT/creatinine. If patient [...] Last Assessment & Plan: She presents for a anatomy survey secondary to class II obesity and CHTN (not currently on medications). Labs reviewed: -- declined genetic screening and msAFP -- early 1 hour GCT normal -- baseline P/C ratio mildly elevated -- recommend repeat testing and/or confirmation of proteinuria with a 24 hour urine We reviewed the results of today's ultrasound. The estimated weight is appropriate for gestational age. The visualized anatomy is unremarkable in appearance. Some structures are suboptimally imaged due to position and poor acoustic windows. The amniotic fluid amount appears normal. We discussed that ultrasound is not able to identify all anomalies, but it is reassuring that no anomalies were seen today. Estimated Date of Delivery Comme nts Yes 06/18/2024 Based on Ultraso und documented as of this encounter (statuses as of 04/02/2024) Resolved Problems Problem Noted Date Diagnosed Date Resolved Date with 15 completed weeks gestation 12/28/2023 02/07/2024 documented as of this encounter (statuses as of 04/02/2024) Immunizations Name Administration Dates Next Due TDAP [...] money to get more. Never true 02/08/2024 [place] Depression Scale Answer Date Recorded [place] Depression Scale Total 0 12/13/2023 The thought [...] Sign Reading Time Taken Comments Blood Pressure 126/78 04/02/2024 8:08 AM EDT Pulse - - Temperature - - Respiratory Rate - - Oxygen Saturation - - Inhaled Oxygen Concentration - - Weight 109.4 kg (241 lb 3.2 oz) 04/02/2024 8:08 AM EDT Height 165.1 cm (5' 5") 04/02/2024 8:08 AM EDT Body Mass Index 40.14 04/02/2024 8:08 AM EDT documented in this encounter Progress Notes * Dina Carbajal CRNP - 04/02/2024 8:17 AM EDT 29w No concerns. Baby is active. No contractions, bleeding, LOF. Taking iron as directed. TDAP today. MFM appt later this week. BETSEY [place] documented in this encounter Nursing Notes * Elida Gaxiola RN - 04/02/2024 8:25 AM EDT Patient here for tdap injection. Patient doing well no complaints. Injection given IM as ordered. Patient tolerated well. Patient to follow up as directed. Patient instructed to call if any complications. Patient verbalized understanding of instructions given and her follow up appt for 2 weeks. Injection site: Left Deltoid Medication Source: Dispensed stock medication Elida Gaxiola RN * Elida Gaxiola RN - 04/02/2024 8:09 AM EDT Patient here for CHIO visit 29w0d No concerns + FM Patient seen by [facility] Nurse. Patient denies any questions or concerns. Elida Gaxiola RN documented in this encounter Plan of Treatment Upcoming Encounters Date Type Department Care Team (Late st Contact Info) Description 04/04/2024 3:15 PM EDT Office Visit Plumbing Designer Obstetrics Maternal Medicine, [address] [address] Jose Alejandro Quick, [address] [place] [address] 04/04/2024 3:15 PM EDT [facility] [place] [address] [place] [address] 05/08/2024 8:45 AM EDT Imaging Maternal Medicine Imaging, [address] [place] [phone] 06/05/2024 8:45 AM EDT Imaging Maternal Medicine Imaging, Denny [facility] [address] [facility] [place] [phone] Health Maintenance Due Date Last Done Comments Hepatitis B (1 of 3 - 19+ 3-dose series) 2013 COVID-19 Vaccine (2022-2 4 season) 2023 Influenza Vaccine (FLU shot) (Season Ended) 2024 Depression Screening 01/23/2025 01/24/2024 GFR 03/18/2025 03/18/2024, 12/13/2023 Pap Smear 12/12/2026 12/13/2023 Cervical Cancer Screening 12/12/2028 HPV/Co-Test 12/12/2028 12/13/2023 DTaP,Tdap,and Td Vaccines (2 - Td or Tdap) 04/02/2034 04/02/2024 GARDASIL-HPV IMMUNIZATION SERIES Aged Out No longer eligible b ased [...] unspecified type Health counseling Other specified counseling Need for prophylactic vaccination with combined ktjdigythh-cdtjpkq-psslmcgov (DTP) vaccine documented in this encounter
--- OUTSIDE RECORDS SUMMARY | 2024-06-09 07:49 | External Medical Summary | Summary of Care ---
Author Name Unknown Organization [facility] Address [address] [place] [address] Phone [phone] Care Team Providers Care Share Holder Name Role Phone Unavailable Primary Care Provider Unavailabl e Encounter Details Date Type Department Care Team (Late st Contact Info) Description 04/04/2024 3:15 PM EDT Office Visit Angle Shear Set Up Operator Obstetrics Maternal Medicine, [place] [address] [place], [place] [id number] Jose Alejandro Quick, [address], [place] [id number] Obesity affecting , antepartum, unspecified obesity type*; Chronic hypertension in Allergies No known active allergiesdocumented as of this encounter (statuses as of 04/04/2024) Medications Medication Sig Dispensed Refills Start Date [...] as of this encounter (statuses as of 04/04/2024) Active Problems Problem Noted Date Diagnosed Date [...] assessment of proteinuria (24-hour urine protein or jrzohrx-kb-ahwazsyfvd ratio) and CBC, serum AST/ALT/creatinine. If patient [...] as of this encounter (statuses as of 04/04/2024) Resolved Problems Problem Noted Date Diagnosed Date Resolved Date with 15 completed weeks gestation 12/28/2023 02/07/2024 documented as of this encounter (statuses as of 04/04/2024) Immunizations Name Administration Dates Next Due TDAP [...] money to get more. Never true 02/08/2024 [place] Depression Scale Answer Date Recorded [place] Depression Scale Total 0 12/13/2023 The thought [...] No 02/08/2024 Does the household have a [facility] source of income? (Household - [...] Sign Reading Time Taken Comments Blood Pressure 136/94 04/04/2024 3:15 PM EDT Pulse 110 04/04/2024 3:15 PM EDT Temperature - - Respiratory Rate - - Oxygen Saturation - - Inhaled Oxygen Concentration - - Weight - - Height - - Body Mass Index - - documented in this encounter Progress Notes * Jose Alejandro Quick DO - 04/04/2024 6:38 PM EDT MATERNAL MEDICINE VISIT Selwyn Christian presented today at 29w2d to [facility] for an ultrasound. She is being seen today by Maternal- Medicine for the following reasons: Problem List Items Addressed This Visit Chronic hypertension in Obesity affecting , antepartum - Primary She presents for follow-up of growth secondary to class II obesity and CHTN (not currently onmedications). Today's ultrasound notes the following: The estimated weight is appropriate for gestational age in the 50th percentile. The visualized anatomy is unremarkable in appearance. The LISY is normal. I reviewed the ultrasound images. Selwyn Christian was given the opportunity to meet with me if she hadany questions. Please refer to the ultrasound report for additional details about today's ultrasound examination. RECOMMENDATIONS: Recommend surveillance starting at 37 weeks secondary to class II obesity. Recommend follow up ultrasound with [facility] in 4 weeks for growth. Thank you for allowing us to participate in the care of this patient. Please call with any questions. Jose Alejandro Quick DO 04/04/2024 6:38 PM documented in this encounter Miscellaneous Notes * Assessment & Plan Note - Jose Alejandro Quick, - 04/04/2024 6:37 PM EDT Associated Problem(s): Obesity affecting , antepartum She presents for follow-up of growth secondary to class II obesity and CHTN (not currently onmedications). Today's ultrasound notes the following: The estimated weight is appropriate for gestational age in the 50th percentile. The visualized anatomy is unremarkable in appearance. The LISY is normal. documented in this encounter Plan of Treatment Upcoming Encounters Date Type Department Care Team (Late st Contact Info) Description 04/21/2024 7:30 AM EDT Office Visit Gynecology/Obstetrics [facility] [address] [place] [address] Nola Meyer PA-C [address] [place] [address] Nurse Issac [facility] Return [place] [address] [place] [address] 05/08/2024 8:45 AM EDT Imaging Maternal Medicine Imaging, [place] Issac [address] [place] [phone] 06/05/2024 8:45 AM EDT Imaging Maternal Medicine Imaging, Denny [place] [place] [phone] Health Maintenance Due Date Last Done Comments [...] puerperium, unspecified as to episode of care documented in this encounter
--- OUTSIDE RECORDS SUMMARY | 2024-06-09 07:49 | External Medical Summary | Summary of Care ---
Author Name Unknown Organization [facility] Address [address] [facility] [place] [address] Phone [phone] Care Team Providers Care Irrigator Sprinkling System Name Role Phone Unavailable Primary Care Provider Unavailabl e Reason for Visit * Reason Comments [facility] Return Encounter Details Date Type Department Care Team (Late st Contact Info) Description 03/18/2024 10:00 AM EDT Office Visit Gynecology/Obstetri alethea [facility] [address] [place] [address] Dina Carbajal CRNP [address] [place] [address] Nurse Issac [facility] Return [place] [address] [place] [address] Supervision of high risk in second trimester*; Chronic hypertension in ; Obesity affecting , antepartum, unspecified obesity type; Need for rubella vaccination; Other proteinuria; Health counseling Allergies No known active allergiesdocumented as of this encounter (statuses as of 03/18/2024) Medications Medication Sig Dispensed Refills Start Date [...] as of this encounter (statuses as of 03/18/2024) Active Problems Problem Noted Date Diagnosed Date Health counseling 02/07/2024 Overview: Problem Action Taken [...] assessment of proteinuria (24-hour urine protein or ixokgar-hc-bgnntybdwd ratio) and CBC, serum AST/ALT/creatinine. If patient [...] as of this encounter (statuses as of 03/18/2024) Resolved Problems Problem Noted Date Diagnosed Date Resolved Date with 15 completed weeks gestation 12/28/2023 02/07/2024 documented as of this encounter (statuses as of 03/18/2024) Social History Tobacco Use Types Packs/Day Years [...] money to get more. Never true 02/08/2024 Knott Depression Scale Answer Date Recorded K[place]t Depression Scale Total 0 12/13/2023 The thought of harming myself has occurred to me . Never 12/13/2023 Estimated Date of Delivery Comme nts Yes [...] Sign Reading Time Taken Comments Blood Pressure 132/88 03/18/2024 9:55 AM EDT Pulse - - Temperature - - Respiratory Rate - - Oxygen Saturation - - Inhaled Oxygen Concentration - - Weight 109.3 kg (241 lb) 03/18/2024 9:55 AM EDT Height 165.1 cm (5' 5") 03/18/2024 9:55 AM EDT Body Mass Index 40.1 03/18/2024 9:55 AM EDT documented in this encounter Progress Notes * Dina Carbajal CRNP - 03/18/2024 10:11 AM EDT 26w6d Only started feeling FM around 24w, remains very intermittent. Not feeling movement every day. Advised [facility]KC at 28w. No bleeding, LOF, n/v. Glucola today. TDAP next visit. Dina L McHail, BLOOD BANK BOOKING CLERK documented in this encounter Nursing Notes * Ximena Pathak RN - 03/18/2024 10:07 AM EDT Patient seen by [facility] It Security Manager. * Korin Samson LPN - 03/18/2024 9:58 AM EDT 26w6d Completing 28 wk labs today. Hasn't felt FM since Sunday. documented in this encounter Plan of Treatment Upcoming Encounters Date Type Department Care Team (Late st Contact Info) Description 04/02/2024 8:00 AM EDT Office Visit Gynecology/Obstetrics [facility] [address] [place] [address] Dina Carbajal CRNP [address] [place] [address] Nurse Issac [facility] Return [place] [address] [place] [address] 04/04/2024 3:15 PM EDT Office Visit Tapper Operator Obstetrics Maternal Medicine, [place] [address] [place] [address] Jose Alejandro Quick, [address] [place] [address] 04/04/2024 3:15 PM EDT [facility] [place] [address] [place] [address] 05/08/2024 8:45 AM EDT Imaging Maternal Medicine [place], Denny [facility] [address] [place] [phone] 06/05/2024 8:45 AM EDT Imaging Maternal Medicine Imaging, [facility] [address] [facility] [place] [phone] Scheduled Orders Name Type Priority Associated Diagnoses Orde r Schedule URINALYSIS, REFLEX TO MICROSCOPIC Lab Routine Supervision of high risk in second trimester Chronic hypertension in Other proteinuria Ordered: 03/18/2024 Health Maintenance Due Date Last Done Comments DTaP,Tdap,and Td Vaccines (1 - Tdap) 2013 Hepatitis B (1 of 3 - 19+ 3- dose series) 2013 COVID-19 Vaccine (2022-2 4 season) 2023 Influenza Vaccine (FLU shot) (Season Ended) 2024 GFR 12/12/2024 12/13/2023 Depression Screening 01/23/2025 01/24/2024 Pap Smear 12/12/2026 12/13/2023 GARDASIL-HPV IMMUNIZATION SERIES Aged Out No longer eligible based on patient's age to complete this topic MENINGOCOCCAL (MENACTRA/MENVEO) Aged Out No longer eligible based on patient's age to complete this topic Pneumococcal Vaccine: Pediat rics (0 to 5 Years) and At-Risk Patients (6 to 64 Years) Aged Out No longer eligi ble based on patient's age to complete this topic documented as of this encounter Medical Devices Not on filedocumented as of this encounter Visit Diagnoses Diagnosis Supervision of high risk in second trimester- Primary Unspecified high-risk Chronic hypertension in Benign essential hypertension complicating , childbirth, and the puerperium, unspecified as to episode of care Obesity affecting , antepartum, unspecified obesity type Need for rubella vaccination Need for prophylactic vaccination and inoculation against rubella alone Other proteinuria Health counseling Other specified counseling documented in this encounter
--- OUTSIDE RECORDS SUMMARY | 2024-06-09 07:49 | External Medical Summary | Summary of Care ---
Author Name Unknown Organization [facility] Address [address] [facility] [place] [address] Phone [phone] Care Team Providers Care Library Helper Name Role Phone Unavailable Primary Care Provider Unavailabl e Reason for Visit * Reason Comments Outpatient Testing Encounter Details Date Type Department Care Team (Late st Contact Info) Description 03/18/2024 9:50 AM EDT Laboratory Laboratory, [facility] [address] [place] [phone] [facility] 132 [facility] [place] [address] Supervision of high risk in second trimester Allergies No known active allergiesdocumented as [...] assessment of proteinuria (24-hour urine protein or oikdyrn-kd-sqgdkizzzp ratio) and CBC, serum AST/ALT/creatinine. If patient [...] money to get more. Never true 02/08/2024 [place] Depression Scale Answer Date Recorded [place] Depression Scale Total 0 12/13/2023 The thought [...] Gynecology/Obstetrics [facility] [address] [place] [address] Dina Carbajal CRNP [address] [place] [address] Nurse Issac [facility] Return [place] [address] [place] [address] 04/04/2024 3:15 PM EDT Office Visit Instructional Design Manager Obstetrics Maternal Medicine, [place] [address] [place] [address] Jose Alejandro Quick, [address] [place] [facility] [place] [address] 04/04/2024 3:15 PM EDT Imaging Radiology [facility], [place] [address] [place] [address] 05/08/2024 8:45 AM EDT Imaging Maternal Medicine Imaging, [place]enny [facility] [address] [place] [phone] 06/05/2024 8:45 AM EDT Imaging Maternal Medicine Imaging, [place]enny [facility] [address] [place] [phone] Pending Results Name Type Priority Associated Diagnoses Date /Time 50-G GESTATIONAL GLUCOSE, 1 HOUR Lab Routine Supervision of high risk in second trimester 03/18/2024 10:49 AM EDT SYPHILIS ANTIBODY SCREEN WITH REFLEX TO RPR Lab Routine Supervision of high risk in second trimester 03/18/2024 10:49 AM EDT CBC WITH WBC DIFFERENTIAL AND ANEMIA REFLEX WORKUP Lab Routine Supervision of high risk in second trimester 03/18/2024 10:49 AM EDT SYPHILIS ANTIBODY SCREEN Lab Routine Supervision of high risk in second trimester 03/18/2024 10:49 AM EDT ANEMIA CBC Lab Routine Supervision of high risk in second trimester 03/18/2024 10:49 AM EDT DIFFERENTIAL, AUTOMATED Lab Routine Supervision of high risk in second trimester 03/18/2024 10:49 AM EDT ANEMIA REFLEX CHEMISTRY HOLD Lab Routine Supervision of high risk in second trimester 03/18/2024 10:49 AM EDT Health Maintenance Due Date Last Done Comments DTaP,Tdap,and Td Vaccines (1 - Tdap) 2013 Hepatitis B (1 of 3 - 19+ 3- dose series) 2013 COVID-19 Vaccine ( - 2022-2 [...] Diagnosis Supervision of high risk in second trimester Unspecified high-risk documented in this encounter
--- OUTSIDE RECORDS SUMMARY | 2024-06-09 07:49 | External Medical Summary ---
Author Name Unknown Address Unknown Organization [id number]:LABORATORY [facility] [place] - [facility] [address] [place] [address] Laboratory Report Ordering Provider Test Date Status ALDO GRESHAM 03/18/2024 10:49:51 Final Observation Date Value Abnormality Reference (Units ) Status Creatinine 03/18/2024 10:49:51 0.5 0.5-1.0 (mg/dL) Final Glomerular filtration rate/1.73 sq M.predicted [Volume Rate/Area] in Serum, Plasma or Blood by Creatinine-based formula (CKD-EPI) 03/18/2024 10:49:51 >90 >=60 (mL/min) Final eGFR is calculated based on the CKD-EPI 2020 equation Performing Location LABORATORY [facility] [place] - [facility] [address] [place] [address]
--- OUTSIDE RECORDS SUMMARY | 2024-06-09 07:49 | External Medical Summary ---
Author Name Unknown Address Unknown Organization [id number][place] [place] [address] [place] [address] Laboratory Report Ordering Provider Test Date Status NAHOMILUIS MANUEL 04/21/2024 15:11:34 Final Normal: <150 mg/ g creatinine
High: 150-500 mg/g creatinine
Very High: >500 mg/g creatinine
Nephrotic: >3000 mg/g creatinine Observation Date Value Abnormality Reference (Units ) Status Protein/Creatinine [Ratio] in Urine 04/21/2024 15:11:34 243 Above high normal <150 (mg/g ) Final Protein, Urine 04/21/2024 15:11:34 17 (mg/dL) Final Creatinine, Urine 04/21/2024 15:11:34 70 (mg/dL) Final Performing Location [facility] [place] [address] [place] [address]
--- OUTSIDE RECORDS SUMMARY | 2024-06-09 07:49 | External Medical Summary | Summary of Care ---
Author Name Unknown Organization [facility] Address [address] [facility] [place] [address] Phone [phone] Care Team Providers Care Water Valve Mechanic Name Role Phone Unavailable Primary Care Provider Unavailabl e Reason for Referral * Evaluate & Treat - Unlimited Visits (Within 10 days (routine)) - Authorized Specialty Diagnoses / Procedures Referred By Azam ryan Referred To Contact Obstetrics/Gynecology / Maternal Medicine Diagnoses Chronic hypertension in Nahomi Meyer PA-C [address] [place] [address] Referral ID Status Reason Start Date Expiration Date Visits Requested Visits Authorized [id number] Authorized Specialty Services Required 04/21/2024 999 999 Question Answer Referral Priority Within 10 days (routine) Has the patient had a viability scan? Yes Date performed 12/13/2023 Location performed Radiology Reason for referral Hypertension Hypertension type Chronic Where should this appointment be scheduled? [facility] Comments /Para: LMP: Patient's last menstrual period was 08/24/2023. Patient is . BRICE: 06/18/2024, by Ultrasound Pre-Gravid BMI: 39.27 Patient already seeing M. Has CHTN, referral back as advised as she was started on medication today. Reason for Visit * Reason Comments Return Visit Encounter Details Date Type Department Care Team ([facility] Contact Info) Description 04/21/2024 7:30 AM EDT Office Visit Gynecology/Obstetri alethea [facility] [address] [place] [address] Nahomi Meyer PA-C [address] [place] [address] Nurse Issac [facility] Return [place] [address] [place] [address] Supervision of high risk in third trimester*; Chronic hypertension in ; Obesity affecting , antepartum, unspecified obesity type; Need for rubella vaccination; Proteinuria, unspecified type; Health counseling Allergies No known active allergiesdocumented as of this encounter (statuses as of 04/21/2024) Medications Medication Sig Dispensed Refills Start Date [...] Active Labetalol HCl 100 MG Oral Tablet (Normodyne)Indicat ions:Chronic hypertension in Take 1 Tablet by mouth in the morning and 1 Tablet before bedtime. 60 Tablet 1 04/21/2024 Active Ferrous Gluconate 240 (27 Fe) MG Oral Tablet (Iron 27) Take by mouth. 4 Discontinue d(Medicatio n List Clean Up) documented as of this encounter (statuses as of 04/21/2024) Active Problems Problem Noted Date Diagnosed Date [...] assessment of proteinuria (24-hour urine protein or vugqcvc-wm-cmjvmmhkvr ratio) and CBC, serum AST/ALT/creatinine. If patient [...] as of this encounter (statuses as of 04/21/2024) Resolved Problems Problem Noted Date Diagnosed Date Resolved Date with 15 completed weeks gestation 12/28/2023 02/07/2024 documented as of this encounter (statuses as of 04/21/2024) Immunizations Name Administration Dates Next Due TDAP [...] money to get more. Never true 02/08/2024 Closplint Depression Scale Answer Date Recorded Closplint Depression Scale Total 0 12/13/2023 The thought [...] Sign Reading Time Taken Comments Blood Pressure 132/90 04/21/2024 7:40 AM EDT Pulse - - Temperature - - Respiratory Rate - - Oxygen Saturation - - Inhaled Oxygen Concentration - - Weight 110.2 kg (243 lb) 04/21/2024 7:40 AM EDT Height - - Body Mass Index 40.44 04/02/2024 8:08 AM EDT documented in this encounter Progress Notes * Nahomi Meyer PA-C - 04/21/2024 8:04 AM EDT 31w5d BP 132/90, elevated with MFM appointment 2 weeks ago at 136/94. Pt has CHTN, not on medications. Noproteins by site dip. Discussed starting medication for improved control of blood pressure. Pt agreeable. Will start with Labetalol 100 mg BID. Denies changes in h/a. Has gotten them throughout . Denies SOB, RUQ pain, or vision changes. Reports had episode of cp possibly reflux the other night while sleeping, resolved quickly and she went right back to bed. PECs labs today. CBC ordered as patient currently on PO iron. Plan to start NST weekly until delivery -- return for NST/CHIO. Nahomi Meyer PA-C * Patsy David LPN - 04/21/2024 7:41 AM EDT 31w5d Denies vaginal bleeding/rom + movement No new concerns documented in this encounter Nursing Notes * Elida Gaxiola RN - 04/21/2024 7:59 AM EDT Patient seen by [facility]. Patient denies any questions or concerns. Elida Gaxiola RN documented in this encounter Miscellaneous Notes * Addendum Note - Nahomi Meyer PA-C - 04/21/2024 12:50 PM EDTAddended by: NAHOMI MEYER on: 04/21/2024 12:50 PM Modules accepted: Orders documented in this encounter Plan of Treatment Upcoming Encounters Date Type Department Care Team (Late st Contact Info) Description 04/24/2024 1:15 PM EDT Office Visit Gynecology/Obstetrics [facility] [place] [address] [place] [address] Nahomi Meyer PA-C [address] [place] [address] [facility] [address] [place] [address] 05/08/2024 8:45 AM EDT Imaging Maternal Medicine Imaging, [place]enny Issac [address] [place] [phone] 06/05/2024 8:45 AM EDT Imaging Maternal Medicine Imaging, Denny [facility] [address] [place] [phone] Pending Results Name Type Priority Associated Diagnoses Date /Time PROTEIN/ CREATININE RATIO, URINE Lab Routine Chronic hypertension in 04/21/2024 3:11 PM EDT Scheduled Orders Name Type Priority Associated Diagnoses Orde r Schedule MFM US MATERNAL 1ST FETUS Medical Imaging Routine Chronic hypertension in Expected: 04/21/2024, Expires: 05/22/2025 Scheduled Referrals Name Type Priority Associated Diagnoses Orde r Schedule MATERNAL MEDICINE REFERRAL OP Referral Within 10 days (routine) Chronic hypertension in Ordered: 04/21/2024 Health Maintenance Due Date Last Done Comments [...] Procedure Name Priority Date/Time Associated Diagnosis Comments COMPREHENSIVE METABOLIC PANEL Routine 04/21/2024 8:23 AM EDT Chronic hypertension in URINALYSIS, POINT OF CARE (ENTER/EDIT) Routine 04/21/2024 Chronic hypertension in documented in this encounter Results * COMPREHENSIVE METABOLIC PANEL (04/21/2024 8:23 AM EDT) BUN 8 6 - 20 mg/dL 04/21/2024 10:02 AM EDT [facility] Creatinine 0.5 0.5 - 1.0 mg/dL 04/21/2024 10:02 AM EDT [facility] Estimated Glomerular Filtration Rate >90 >=60 mL/min 04/21/2024 10:02 AM EDT [facility] Comment:eGFR is calculated b ased on the CKD-EPI 2020 equation Sodium 136 135 - 146 mmol/L 04/21/2024 10:02 AM EDT [facility] Potassium 4.3 3.5 - 5.1 mmol/L 04/21/2024 10:02 AM EDT [facility] Chloride 102 98 - 107 mmol/L 04/21/2024 10:02 AM EDT [facility] CO2 22 22 - 32 mmol/L 04/21/2024 10:02 AM EDT [facility] Anion Gap 12 7 - 15 mmol/L 04/21/2024 10:02 AM EDT [facility] Glucose 92 70 - 120 mg/dL 04/21/2024 10:02 AM EDT [facility] Albumin 3.8 3.8 - 5.0 g/dL 04/21/2024 10:02 AM EDT [facility] AST 22 10 - 35 U/L 04/21/2024 10:02 AM EDT [facility] Alkaline Phosphatase 80 35 - 130 U/L 04/21/2024 10:02 AM EDT [facility] Bilirubin, Total 0.2 <=1.2 mg/dL 04/21/2024 10:02 AM EDT [facility] Calcium 9.8 8.4 - 10.2 mg/dL 04/21/2024 10:02 AM EDT [facility] Protein 7.7 6.0 - 8.3 g/dL 04/21/2024 10:02 AM EDT [facility] ALT 15 10 - 35 U/L 04/21/2024 10:02 AM EDT [facility] Blood Venous blood specimen / Unknown Venipuncture / Unknown 04/21/2024 8:23 AM EDT 04/21/2024 8:23 AM EDT Nahomi Meyer PA-C LAB BLOOD ORDERABLES [facility] [address] [place] [address] * URINALYSIS, POINT OF CARE (ENTER/EDIT) (04/21/2024) Color, Urine Yellow Yellow or Light Yellow Clarity, Urine Clear Clear Glucose, Urine Negative Negative mg/dL Bilirubin, Urine Negative Negative Ketone, Urine Negative Negative mg/dL Specific [place], Urine 1.020 1.003 - 1.030 Blood, Urine Negative Negative pH, Urine 7.0 5.0 - 7.5 units Protein, Urine Negative Negative mg/dL Urobilinogen, Urine 0.2 0.2 - 1.0 mg/dL Nitrite, Urine Negative Negative Esterase, Urine Trace Negative Urine 04/21/2024 Nahomi Meyer PA-C LAB POINT OF CARE TE ENTER/EDIT ORDERABLES documented in this encounter Visit [...] unspecified type Health counseling Other specified counseling documented in this encounter
--- OUTSIDE RECORDS SUMMARY | 2024-06-09 07:49 | External Medical Summary | Summary of Care ---
Author Name Unknown Organization [facility] Address [address] [place] [address] Phone [phone] Care Team Providers Care Disc Sander Name Role Phone Unavailable Primary Care Provider Unavailabl e Encounter Details Date Type Department Care Team (Late st Contact Info) Description 03/11/2024 3:15 PM EDT Office Visit Investments Manager Obstetrics Maternal Medicine, [place] [address] [place] [address] Thu Toure, [address] [place] [address] Obesity affecting , antepartum, unspecified obesity type*; Chronic hypertension in ; Ultrasound for screening for growth restriction; 25 weeks gestation of Allergies No known active allergiesdocumented as of this encounter (statuses as of 03/12/2024) Medications Medication Sig Dispensed Refills Start Date [...] as of this encounter (statuses as of 03/12/2024) Active Problems Problem Noted Date Diagnosed Date [...] or questions 03/07/2024 Ximena Pathak RN 03/07/2024 Upper respiratory tract infection 01/24/2024 Sore throat [...] assessment of proteinuria (24-hour urine protein or xempoet-sz-beifxifrsj ratio) and CBC, serum AST/ALT/creatinine. If patient [...] as of this encounter (statuses as of 03/12/2024) Resolved Problems Problem Noted Date Diagnosed Date Resolved Date with 15 completed weeks gestation 12/28/2023 02/07/2024 documented as of this encounter (statuses as of 03/12/2024) Social History Tobacco Use Types Packs/Day Years [...] money to get more. Never true 02/08/2024 [place] Depression Scale Answer Date Recorded [place] Depression Scale Total 0 12/13/2023 The thought [...] of this encounter Progress Notes * Thu Toure DO - 03/12/2024 10:25 AM EDT Selwyn presented for an ultrasound for the following indications: Obesity affecting , antepartum, unspecified obesity type Chronic hypertension in Assessment & Plan: BP currently stable without medication. Initiate therapy to maintain BP < 140/90. BP Readings from Last 5 Encounters: 03/07/24 136/88 02/15/24 130/82 02/08/24 142/87 02/07/24 126/82 01/24/24 124/80 Ultrasound for screening for growth restriction 25 weeks gestation of Ultrasound summary: Patient presented at 25w 6d for growth assessment. Normal growth with EFW 909 g at 55%ile. Normal LISY at 14.2 cm. Breech presentation. I reviewed the ultrasound images. Selwyn was given the opportunity to meet with me if she had any questions. Please refer to the ultrasound report for additional details about today's ultrasound examination. RECOMMENDATIONS: Recommend follow up ultrasound with MFM in 4-6 weeks for growth secondary to above indications. See prior formal MFM consultation note. Thank you for allowing us to participate in the care of this patient. Please call with any questions. Thu Toure DO 03/12/2024 10:25 AM documented in this encounter Miscellaneous Notes * Assessment & Plan Note - Thu Toure DO - 03/11/2024 2:58 PM EDT Associated Problem(s): Chronic hypertension in BP currently stable without medication. Initiate therapy to maintain BP < 140/90. BP Readings from Last 5 Encounters: 03/07/24 136/88 02/15/24 130/82 02/08/24 142/87 02/07/24 126/82 01/24/24 124/80 documented in this encounter Plan of Treatment Upcoming Encounters Date Type Department Care Team (Late st Contact Info) Description 03/18/2024 9:50 AM EDT [facility] [address] [facility] [phone] Kristy [place] [facility] [address] [place] [address] 03/18/2024 10:00 AM EDT Office Visit Gynecology/Obstetrics [facility] [address] [place] [address] Dina Carbajal CRNP [address] [facility] [place] [address] Nurse Issac Healthy Beginnings Return [facility] [address] [facility] [place] [address] 04/04/2024 3:15 PM EDT Office Visit Investments Manager Obstetrics Maternal Medicine, [place] [address] [place] [address] Jose Alejandro Quick DO [address] [place] [facility] [place] [address] 04/04/2024 3:15 PM EDT [facility] [place] [address] [place] [address] 05/08/2024 8:45 AM EDT Imaging Maternal Medicine Imaging, [place] [address] [place] [place] [phone] 06/05/2024 8:45 AM EDT Imaging Maternal Medicine Imaging, [place] [address] [place] [phone] Health Maintenance Due Date Last Done Comments [...] restriction screening for growth retardation using ultrasonics 25 weeks gestation of state, incidental documented in this encounter
--- OUTSIDE RECORDS SUMMARY | 2024-06-09 07:49 | External Medical Summary | Summary of Care ---
Author Name Unknown Organization [facility] Address [address] [place] [address] Phone [phone] Care Team Providers Care Chief Inspector Name Role Phone Unavailable Primary Care Provider Unavailabl e Encounter Details Date Type Department Care Team (Late st Contact Info) Description 03/19/2024 Telephone Gynecology/Obstetrics [facility] [address] [place] [address] Leena Huizar CRNP [address] [facility] [place] [address] Allergies No known active allergiesdocumented as of this encounter (statuses as of 03/19/2024) Medications Medication Sig Dispensed Refills Start Date [...] as of this encounter (statuses as of 03/19/2024) Active Problems Problem Noted Date Diagnosed Date [...] assessment of proteinuria (24-hour urine protein or cygsivk-hc-jzjdwaaexf ratio) and CBC, serum AST/ALT/creatinine. If patient [...] as of this encounter (statuses as of 03/19/2024) Resolved Problems Problem Noted Date Diagnosed Date Resolved Date with 15 completed weeks gestation 12/28/2023 02/07/2024 documented as of this encounter (statuses as of 03/19/2024) Social History Tobacco Use Types Packs/Day Years [...] money to get more. Never true 02/08/2024 [place] Depression Scale Answer Date Recorded [place] Depression Scale Total 0 12/13/2023 The thought [...] Telephone Encounter - Elida Gaxiola RN - 03/19/2024 8:37 AM EDT Attempted to call patient. No answer, LVM to return call. * Telephone Encounter - Leena Huizar CRNP - 03/19/2024 7:50 AM EDT Normal 1 hr glucose. She does have anemia. Iron is in her med list - is she taking this? If not, needs to start. If she is taking it, would recommend switching to a higher dose (325 mg twice a day with vitamin C). RepeatCBC in 4 weeks. BETSEY Roland documented in this encounter Plan of Treatment Upcoming Encounters Date Type Department Care Team (Late st Contact Info) Description 04/02/2024 8:00 AM EDT Office Visit Gynecology/Obstetrics [place] [address] [place] [address] Dina Carbajal CRNP [address] [place] [address] Nurse Issac Healthy Beginnings Return [place] [address] 04/04/2024 3:15 PM EDT Office Visit Buckle Stringer Obstetrics Maternal Medicine, [place] [address] [place] [address] Jose Alejandro Quick, [address] [place] [address] 04/04/2024 3:15 PM EDT Imaging Radiology [facility], [place] [address] [place] [address] 05/08/2024 8:45 AM EDT Imaging Maternal Medicine Imaging, [place] [phone] 06/05/2024 8:45 AM EDT Imaging Maternal Medicine Imaging, [place] [phone] Health Maintenance Due Date Last Done Comments DTaP,Tdap,and Td Vaccines (1 - Tdap) 2013 Hepatitis B (1 of 3 - 19+ 3-dose series) 2013 COVID-19 Vaccine ( - 2022-2 4 season) 2023 Influenza Vaccine (FLU shot) (Season Ended) 2024 Depression Screening 01/23/2025 01/24/2024 GFR 03/18/2025 03/18/2024, 12/13/2023 Pap Smear 12/12/2026 12/13/2023 GARDASIL-HPV IMMUNIZATION SERIES [...] as of this encounter Visit Diagnoses Diagnosis Antepartum anemia complicating - Primary Anemia, antepartum documented in this encounter
--- OUTSIDE RECORDS SUMMARY | 2024-06-09 07:49 | External Medical Summary | Summary of Care ---
Author Name Unknown Organization [facility] Address [address] [facility] [place] [address] Phone [phone] Care Team Providers Care Biologist Aide Name Role Phone Unavailable Primary Care Provider Unavailabl e Reason for Visit * Reason Comments Return Visit Encounter Details Date Type Department Care Team (Late st Contact Info) Description 04/21/2024 7:30 AM EDT Office Visit Gynecology/Obstetri alethea [place] [address] [place] [address] Nola Meyer PA-C [address] [place] [address] Nurse Issac Healthy Beginnings Return [place] [address] [place] [address] Supervision of high risk in third trimester*; [...] Oral Tablet (Iron 27) Take by mouth. Discontinue d(Medicatio n List Clean Up) documented [...] assessment of proteinuria (24-hour urine protein or bvrukii-og-gpvilgtbsg ratio) and CBC, serum AST/ALT/creatinine. If patient [...] money to get more. Never true 02/08/2024 [place] Depression Scale Answer Date Recorded [place] Depression Scale Total 0 12/13/2023 The thought [...] Progress Notes * Nola Meyer PA-C - 04/21/2024 8:04 AM EDT [...] weekly until delivery -- return for NST/CHIO. Nola Meyer PA-C * Patsy David LPN - 04/21/2024 7:41 AM EDT [id number] Denies vaginal bleeding/rom + movement No new concerns documented in this encounter Nursing Notes * Elida Gaxiola RN - 04/21/2024 7:59 AM EDT Patient seen by [facility] Electronics Installer. Patient denies any questions or concerns. Elida Gaxiola RN documented in this encounter Plan of Treatment Upcoming Encounters Date Type Department Care Team (Late st Contact Info) Description 04/21/2024 8:40 AM EDT Laboratory Laboratory, [facility] [address] [place] [phone] [facility] [address] [place] [address] Arrived 05/08/2024 8:45 AM EDT [place] [address] 06/05/2024 8:45 AM [place] [phone] Pending Results Name Type Priority Associated Diagnoses Date /Time COMPREHENSIVE METABOLIC PANEL Lab Routine Chronic hypertension in 04/21/2024 8:23 AM EDT Scheduled Orders Name Type Priority Associated Diagnoses Orde r Schedule URINALYSIS, POINT OF CARE (ENTER/EDIT) Point of Care Testing Routine Chronic hypertension in Ordered: 04/21/2024 PROTEIN/ CREATININE RATIO, URINE Lab Routine Chronic hypertension in Ordered: 04/21/2024 Health Maintenance Due Date Last Done Comments Hepatitis B Vaccine (1 of 3 - 19+ 3-dose series) 2013 COVID-19 Vaccine (1 - 2022-2 4 season) 2023 Influenza Vaccine (FLU shot) (#1) 2024 Depression Screening 01/23/2025 01/24/2024 GFR 03/18/2025 [...]
--- OUTSIDE RECORDS SUMMARY | 2024-06-09 07:49 | External Medical Summary | Summary of Care ---
Author Name Unknown Organization [facility] Address [address] [facility] [address] Phone [phone] Care Team Providers Care Wharf Helper Name Role Phone Unavailable Primary Care Provider Unavailabl e Encounter Details Date Type Department Care Team (Late st Contact Info) Description 04/07/2024 Population Health External Data Unspecified Department Allergies No known active allergiesdocumented as of this encounter (statuses as of 04/07/2024) Medications Medication Sig Dispensed Refills Start Date [...] as of this encounter (statuses as of 04/07/2024) Active Problems Problem Noted Date Diagnosed Date [...] assessment of proteinuria (24-hour urine protein or zloanzf-bh-idbsqullxz ratio) and CBC, serum AST/ALT/creatinine. If patient [...] as of this encounter (statuses as of 04/07/2024) Resolved Problems Problem Noted Date Diagnosed Date Resolved Date with 15 completed weeks gestation 12/28/2023 02/07/2024 documented as of this encounter (statuses as of 04/07/2024) Immunizations Name Administration Dates Next Due TDAP [...] money to get more. Never true 02/08/2024 [place] Depression Scale Answer Date Recorded [place] Depression Scale Total 0 12/13/2023 The thought [...] No 02/08/2024 Does the household have a [facility] source of income? (Household - for ages [...] Visit Gynecology/Obstetrics [place] [address] [place] [address] Nola Meyer PA-C [address] [place] [address] Nurse Issac Healthy Beginnings Return [place] [address] [place] [address] 05/08/2024 8:45 AM EDT Imaging Maternal Medicine Imaging, [place] [phone] 06/05/2024 8:45 AM EDT Imaging Maternal Medicine Imaging, [place] [place] [phone] Health Maintenance Due Date Last Done Comments [...]
--- OUTSIDE RECORDS SUMMARY | 2024-06-09 07:49 | External Medical Summary | Summary of Care ---
Author Name Unknown Organization [facility] Address [address] [facility] [place] [address] Phone [phone] Care Team Providers Care Caltrans Equipment Operator Name Role Phone Unavailable Primary Care Provider Unavailabl e Reason for Visit * Reason Comments Outpatient Testing Encounter Details Date Type Department Care Team (Late st Contact Info) Description 04/21/2024 8:40 AM EDT Laboratory Laboratory, [facility] [address] [place] [phone] [facility] 132 [place] [address] Arrived Allergies No known active allergiesdocumented as of [...] assessment of proteinuria (24-hour urine protein or sgdbyiy-ih-avzxdvvhwy ratio) and CBC, serum AST/ALT/creatinine. If patient [...] money to get more. Never true 02/08/2024 [place] Depression Scale Answer Date Recorded [place] Depression Scale Total 0 12/13/2023 The thought [...] 8:45 AM EDT Imaging Maternal Medicine Imaging, [facility] [address] [place] [phone] 06/05/2024 8:45 AM EDT Imaging Maternal Medicine Imaging, [facility] [address] [place] [phone] Health Maintenance Due Date Last Done Comments [...]
--- OUTSIDE RECORDS SUMMARY | 2024-06-09 07:49 | External Medical Summary ---
Author Name Unknown Address Unknown Organization K0[facility] [address] [place] [address] Laboratory Report Ordering Provider Test Date Status LUIS MANUEL COMER 04/21/2024 08:23:04 Final Observation Date Value Abnormality Reference (Units ) Status BUN 04/21/2024 08:23:04 8 6-20 (mg/dL) Final Creatinine 04/21/2024 08:23:04 0.5 0.5-1.0 (mg/dL) Final Glomerular filtration rate/1.73 sq M.predicted [Volume Rate/Area] in Serum, Plasma or Blood by Creatinine-based formula (CKD-EPI) 04/21/2024 08:23:04 >90 >=60 (mL/min) Final eGFR is calculated based on the CKD-EPI 2020 equation Sodium 04/21/2024 08:23:04 136 135-146 (m mol/L) Final Potassium 04/21/2024 08:23:04 4.3 3.5-5.1 (m mol/L) Final Cl 04/21/2024 08:23:04 102 98-107 (mm ol/L) Final CO2 04/21/2024 08:23:04 22 22-32 (mmo l/L) Final Anion gap 04/21/2024 08:23:04 12 7-15 (mmol /L) Final Glucose 04/21/2024 08:23:04 92 70-120 (mg /dL) Final Albumin 04/21/2024 08:23:04 3.8 3.8-5.0 (g /dL) Final AST (Aspartate aminotransferase) 04/21/2024 08:23:04 22 10-35 (U/L) Final Alk Phos 04/21/2024 08:23:04 80 35-130 (U/ L) Final Bilirubin, Total 04/21/2024 08:23:04 0.2 <=1 .2 (mg/dL) Final Calcium 04/21/2024 08:23:04 9.8 8.4-10.2 ( mg/dL) Final Protein 04/21/2024 08:23:04 7.7 6.0-8.3 (g /dL) Final ALT (Alanine aminotransferase) 04/21/2024 08:23:04 15 10-35 (U/L) Final [facility]forming Location [facility] [place] [address]
--- OUTSIDE RECORDS SUMMARY | 2024-06-09 07:49 | External Medical Summary | Summary of Care ---
Author Name Unknown Organization [facility] Address [address] [facility] [place] [address] Phone [phone] Care Team Providers Care Exercise Teacher Name Role Phone Unavailable Primary Care Provider Unavailabl e Reason for Visit * Reason Comments Return Visit Encounter Details Date Type Department Care Team (Late st Contact Info) Description 04/21/2024 7:30 AM EDT Office Visit Gynecology/Obstetri alethea [place] [address] [place] [address] Nola Meyer PA-C [address] [place] [address] Nurse Issac Healthy Beginnings Return [place] [address] [place] [address] Supervision of high risk in third trimester*; [...] assessment of proteinuria (24-hour urine protein or fcieynd-cu-sebdepnpio ratio) and CBC, serum AST/ALT/creatinine. If patient [...] money to get more. Never true 02/08/2024 [place] Depression Scale Answer Date Recorded [place] Depression Scale Total 0 12/13/2023 The thought [...] 04/21/2024 7:59 AM EDT Patient seen by [facility] Case Loader Operator. Patient denies any questions or concerns. Elida Gaxiola RN documented in this encounter Plan of Treatment Upcoming Encounters Date Type Department Care Team (Late st Contact Info) Description 04/24/2024 1:15 PM EDT Office Visit Gynecology/Obstetrics [place] [address] [place] [address] Nola Meyer PA-C [address] [place] [address] [facility] [place] [address] 05/08/2024 8:45 AM EDT Imaging Maternal Medicine Imaging[facility] [address] [place] [phone] 06/05/2024 8:45 AM EDT Imaging Maternal Medicine Imaging[facility] [address] [place] [phone] Scheduled Orders Name Type Priority Associated Diagnoses [...] 10:02 AM EDT LAB[facility] Chloride 102 98 - 107 mmol/L 04/21/2024 10:02 AM EDT [facility] CO2 22 22 - 32 mmol/L 04/21/2024 10:02 AM EDT [facility] [place] [facility] Anion Gap 12 7 - 15 mmol/L 04/21/2024 10:02 AM EDT [facility] Glucose 92 70 - 120 mg/dL 04/21/2024 10:02 AM EDT [facility] [place] [facility] Albumin 3.8 3.8 - 5.0 g/dL 04/21/2024 10:02 AM EDT [facility] AST 22 10 - 35 U/L 04/21/2024 10:02 AM EDT LAB[facility]ORY [facility] Alkaline Phosphatase 80 35 - 130 U/L 04/21/2024 10:02 AM EDT [facility] Bilirubin, Total 0.2 <=1.2 mg/dL 04/21/2024 10:02 AM EDT [facility] Calcium 9.8 8.4 - 10.2 mg/dL 04/21/2024 10:02 AM EDT [facility] [place] [facility] Protein 7.7 6.0 - 8.3 g/dL 04/21/2024 10:02 AM EDT [facility] ALT 15 10 - 35 U/L 04/21/2024 10:02 AM EDT [facility] Blood Venous blood specimen / Unknown Venipuncture / Unknown 04/21/2024 8:23 AM EDT 04/21/2024 8:23 AM EDT Nola Meyer PA-C LAB BLOOD ORDERABLES [facility] [facility] [place] [address] * URINALYSIS, POINT OF CARE (ENTER/EDIT) (04/21/2024) Color, Urine Yellow Yellow or Light Yellow Clarity, Urine Clear Clear Glucose, Urine Negative Negative mg/dL Bilirubin, Urine Negative Negative Ketone, Urine Negative Negative mg/dL Specific [place], Urine 1.020 1.003 - 1.030 Blood, Urine Negative Negative pH, Urine 7.0 5.0 - 7.5 units Protein, Urine Negative Negative mg/dL Urobilinogen, Urine 0.2 0.2 - 1.0 mg/dL Nitrite, Urine Negative Negative Esterase, Urine Trace Negative Urine 04/21/2024 Nola Meyer PA-C LAB POINT OF CARE TE ST ENTER/EDIT [...]
--- OUTSIDE RECORDS SUMMARY | 2024-06-09 07:49 | External Medical Summary ---
Author Name Unknown Address Unknown Organization K01:[facility]ATORY C - [address] [place] [address] Laboratory Report Ordering Provider Test Date Status ALDO GRESHAM 03/18/2024 10:49:51 Final Observation Date Value Abnormality Reference (Units ) Status Ferritin 03/18/2024 10:49:51 44 13-150 (ng /mL) Final Performing Location LAB[facility]ATORY [facility] - [address] [place] [address]
--- OUTSIDE RECORDS SUMMARY | 2024-06-09 07:49 | External Medical Summary | Summary of Care ---
Author Name Unknown Organization [facility] Address [address] [address] Phone [phone] Care Team Providers Care Grades 1 Thru 5 Teacher Name Role Phone Unavailable Primary Care Provider Unavailabl e Reason for Visit * Reason Comments Return Visit Encounter Details Date Type Department Care Team (Late st Contact Info) Description 03/07/2024 8:30 AM EDT Office Visit Gynecology/Obstetri alethea [facility] [address] [place] [address] Leena Huizar CRNP [address] [place] [address] Nurse Issac [facility] Return Denny [address] [place] [address] Supervision of high risk in second trimester*; Chronic hypertension in ; Obesity affecting , antepartum, unspecified obesity type; Need for rubella vaccination; Proteinuria, unspecified type; Health counseling Allergies No known active allergiesdocumented as of this encounter (statuses as of 03/07/2024) Medications Medication Sig Dispensed Refills Start Date [...] as of this encounter (statuses as of 03/07/2024) Active Problems Problem Noted Date Diagnosed Date [...] assessment of proteinuria (24-hour urine protein or vgzazlh-qp-xkwbzlpfwo ratio) and CBC, serum AST/ALT/creatinine. If patient [...] Urine mg/dL 46 Last Assessment & Plan: Mild BP elevations noted today, though yesterday her BP in the office was normal and she reports normal values at home. She admits to some anxiety regarding this appointment. I suggested that she validate her home cuff by comparing to an office cuff, and we discussed initiating medications if she has frequent elevations on home/office testing. Obesity affecting , antepartum 12/13/19 24 Overview: The patient's pre-gravid BMI is 39.27. [...] as of this encounter (statuses as of 03/07/2024) Resolved Problems Problem Noted Date Diagnosed Date Resolved Date with 15 completed weeks gestation 12/28/2023 02/07/2024 documented as of this encounter (statuses as of 03/07/2024) Social History Tobacco Use Types Packs/Day Years [...] money to get more. Never true 02/08/2024 [place] Depression Scale Answer Date Recorded [place] Depression Scale Total 0 12/13/2023 The thought [...] Sign Reading Time Taken Comments Blood Pressure 136/88 03/07/2024 8:26 AM EDT Pulse - - Temperature - - Respiratory Rate - - Oxygen Saturation - - Inhaled Oxygen Concentration - - Weight 110.2 kg (243 lb) 03/07/2024 8:26 AM EDT Height - - Body Mass Index 40.44 01/11/2024 9:11 AM EDT documented in this encounter Progress Notes * Mando David LPN - 03/07/2024 8:32 AM EDT 25w2d Denies vaginal bleeding/rom + movement No new concerns * Leena Huizar CRNP - 03/07/2024 8:26 AM EDT 25w2d No cramping, bleeding, leaking. Baby is moving well. BP stable, no symptoms of preE. Seeing [facility] for routine growth scans. Discussed Tdap recommendation. Labs ordered for next visit, return in 2 weeks. BETSEY Roland documented in this encounter Nursing Notes * Ximena Pathak RN - 03/07/2024 8:52 AM EDT Patient seen by [facility] Rope Laying Machine Operator. documented in this encounter Miscellaneous Notes * Addendum Note - Mando David LPN - 03/07/2024 9:25 AM EDTAddended by: MANDO DAVID on: 03/07/2024 09:25 AM Modules accepted: Orders documented in this encounter Plan of Treatment Upcoming Encounters Date Type Department Care Team (Late st Contact Info) Description 03/11/2024 3:15 PM EDT Office Visit Home Specialist Obstetrics Maternal Medicine, [place] [address] [place] [address] Thu Toure, [address] [place] [address] 03/11/2024 3:15 PM EDT Imaging Radiology [facility] [address] [place] [address] 03/18/2024 9:50 AM EDT Laboratory Laboratory, [facility] [address] [facility] [place] [phone] [facility] [address] [place] [address] 03/18/2024 10:00 AM EDT Office Visit Gynecology/Obstetrics [facility] [address] [place] [address] Dina Carbajal CRNP [address] [place] [address] Nurse Issac Healthy Beginnings Return Denny [place] [address] 04/04/2024 3:15 PM EDT Office Visit Home Specialist Obstetrics Maternal Medicine, [place] [address] [place] [address] Jose Alejandro Quick, [address] [place] [address] 04/04/2024 3:15 PM EDT Imaging [facility] [place] [address] [place] [address] 05/08/2024 8:45 AM EDT Imaging Maternal Medicine Imaging, Denny Zimmermans [address] [place] [phone] 06/05/2024 8:45 AM EDT Imaging Maternal Medicine Imaging, Denny Mire[address] [place] [phone] Scheduled Orders Name Type Priority Associated Diagnoses Orde r Schedule 50-G GESTATIONAL GLUCOSE, 1 HOUR Lab Routine Supervision of high risk in second trimester Expected: 03/21/2024 (Approximate), Expires: 03/07/2025 SYPHILIS ANTIBODY SCREEN WITH REFLEX TO RPR Lab Routine Supervision of high risk in second trimester Expected: 03/21/2024 (Approximate), Expires: 03/07/2025 CBC WITH WBC DIFFERENTIAL AND ANEMIA REFLEX WORKUP Lab Routine Supervision of high risk in second trimester Expected: 03/21/2024 (Approximate), Expires: 03/07/2025 Health Maintenance Due Date Last Done Comments [...] Comments URINALYSIS, POINT OF CARE (ENTER/EDIT) Routine 03/07/2024 Supervision of high risk in second trimester documented in this encounter Results * URINALYSIS, POINT OF CARE (ENTER/EDIT) (03/07/2024) Color, Urine Yellow Yellow or Light Yellow Clarity, Urine Clear Clear Glucose, Urine Negative Negative mg/dL Bilirubin, Urine Negative Negative Ketone, Urine Negative Negative mg/dL Specific [place], Urine 1.025 1.003 - 1.030 Blood, Urine Negative Negative pH, Urine 7.0 5.0 - 7.5 units Protein, Urine 30 Negative mg/dL Urobilinogen, Urine 0.2 0.2 - 1.0 mg/dL Nitrite, Urine Negative Negative Esterase, Urine Negative Negative Urine 03/07/2024 Leena LEGGETT LAB POINT O F CARE [...]
--- OUTSIDE RECORDS SUMMARY | 2024-06-09 07:49 | External Medical Summary | Summary of Care ---
Author Name Unknown Organization [facility] Address [address] [facility] [place] [address] Phone [phone] Care Team Providers Care Personal Lines Underwriter Name Role Phone Unavailable Primary Care Provider Unavailabl e Reason for Referral * Evaluate & Treat - Unlimited Visits (Within 10 days (routine)) - Authorized Specialty Diagnoses / Procedures Referred By Azam ryan Referred To Contact Obstetrics/Gynecology / Maternal Medicine Diagnoses Chronic hypertension in Nahomi Meyer PA-C [address] [place] [address] Referral ID Status Reason Start Date Expiration Date Visits Requested Visits Authorized [id number] Authorized Specialty Services Required 04/21/2024 999 999 [...] Encounter Details Date Type Department Care Team ([facility] Contact Info) Description 04/21/2024 7:30 AM EDT Office Visit Gynecology/Obstetri alethea [facility] [address] [place] [address] Nahomi Meyer PA-C [address] [place] [address] Nurse Issac Healthy Beginnings Return Denny [address] [place] [address] Supervision of high risk in third trimester*; [...] assessment of proteinuria (24-hour urine protein or owdjvdl-le-edubsrapnn ratio) and CBC, serum AST/ALT/creatinine. If patient [...] money to get more. Never true 02/08/2024 [place] Depression Scale Answer Date Recorded [place] Depression Scale Total 0 12/13/2023 The thought [...] No 02/08/2024 Does the household have a [facility] source of income? (Household - for ages [...] 04/21/2024 7:59 AM EDT Patient seen by [facility] Tank House Operator. Patient denies any questions or concerns. Elida Gaxiloa RN documented in this encounter Miscellaneous Notes * Addendum Note - Nahomi Meyer PA-C - 04/21/2024 12:50 PM EDTAddended by: NAHOMI MEYER on: 04/21/2024 12:50 PM Modules accepted: Orders documented in this encounter Plan of Treatment Upcoming Encounters Date Type Department Care Team (Late st Contact Info) Description 04/24/2024 1:15 PM EDT Office Visit Gynecology/Obstetrics Bryce Zimmermans [address] [place] [address] Nahomi Meyer PA-C [address] [place] [address] [facility] Tests Denny [address] [place] [address] 05/08/2024 8:45 AM EDT Imaging Maternal Medicine Imaging, Denny Issac [address] [place] [phone] 06/05/2024 8:45 AM EDT Imaging Maternal Medicine Imaging, Denny [facility] [address] [place] [phone] Scheduled Orders Name Type Priority Associated Diagnoses Orde r Schedule PROTEIN/ CREATININE RATIO, URINE Lab Routine Chronic hypertension in Ordered: 04/21/2024 MFM US MATERNAL 1ST FETUS Medical Imaging [...] BLOOD ORDERABLES LABORATORY [place] 57-10 [address] [facility] [place] [address] * URINALYSIS, POINT OF CARE (ENTER/EDIT) (04/21/2024) Color, Urine Yellow Yellow or Light Yellow Clarity, Urine Clear Clear Glucose, Urine Negative Negative mg/dL Bilirubin, Urine Negative Negative Ketone, Urine Negative Negative mg/dL Specific [place], Urine 1.020 1.003 - 1.030 Blood, Urine [...]
--- OUTSIDE RECORDS SUMMARY | 2024-06-09 07:49 | External Medical Summary ---
Author Name Unknown Address Unknown Organization [id number]:LABORATORY [facility] [place] - [address] [facility] [address] [place] [address] Laboratory Report Ordering Provider Test Date Status ALDO GRESHAM 03/18/2024 10:49:51 Final Observation Date Value Abnormality Reference (Units ) Status Treponema pallidum Ab [Presence] in Serum by Immunoassay 03/18/2024 10:49:51 Nonreactive Nonreactive Final No serologic evidence of syp hilis. No additional testing clinicially indicated at this time. Consider repeat testing in 2-4 weeks if acute or primary syphilis is suspected. Performing Location LABORATORY [facility] [place] - [address] [place] [address]
--- OUTSIDE RECORDS SUMMARY | 2024-06-09 07:49 | External Medical Summary ---
Author Name Unknown Address Unknown Organization [id number]:[facility]ATORY [facility] [place] - [address] [place] [address] Laboratory Report Ordering Provider Test Date Status ALDO GRESHAM 03/18/2024 10:49:51 Final Observation Date Value Abnormality Reference (Units ) Status Iron 03/18/2024 10:49:51 41 33-151 (ug/dL) Final Iron-binding capacity 03/18/2024 10:49:51 388 250-425 (ug/dL) Final Transferrin Sat % 03/18/2024 10:49:51 11 Below low normal 15-55 (%) Final Performing Location LABORATORY [facility] [place] - [address] [place] [address]
--- OUTSIDE RECORDS SUMMARY | 2024-06-09 07:49 | External Medical Summary | Summary of Care ---
Author Name Unknown Organization [facility] Address [address] [facility] [place] [address] Phone [phone] Care Team Providers Care Pre Sales Architect Name Role Phone Unavailable Primary Care Provider Unavailabl e Reason for Visit * Reason Comments Return Visit Encounter Details Date Type Department Care Team (Late st Contact Info) Description 04/02/2024 8:00 AM EDT Office Visit Gynecology/Obstetri alethea [facility] [address] [place] [address] Dina Carbajal CRNP [address] [place] [address] Nurse Issac [facility] Return Denny [address] [place] [address] Supervision of high risk in third trimester*; Chronic hypertension in ; Obesity affecting , antepartum, unspecified obesity type; Need for rubella vaccination; Proteinuria, unspecified type; Health counseling; Need for prophylactic vaccination with combined xgbuehshim-lffjzcb-ir rtussis (DTP) vaccine Allergies No known active [...] assessment of proteinuria (24-hour urine protein or cqhpbpz-ib-kiybxwbeqh ratio) and CBC, serum AST/ALT/creatinine. If patient [...] money to get more. Never true 02/08/2024 [place] Depression Scale Answer Date Recorded [place] Depression Scale Total 0 12/13/2023 The thought [...] No concerns + FM Patient seen by [facility] Plastic Parts Designer. Patient denies any questions or concerns. Elida Gaxiola RN documented in this encounter Plan of Treatment Upcoming Encounters Date Type Department Care Team (Late st Contact Info) Description 04/04/2024 3:15 PM EDT Office Visit Pipe Threader Obstetrics Maternal Medicine, [address] [address] Jose Alejandro Quick, [address] [place] [address] 04/04/2024 3:15 PM EDT [facility] [place] [address] [place] [address] 05/08/2024 8:45 AM EDT Imaging Maternal Medicine Imaging, [address] [place] [phone] 06/05/2024 8:45 AM EDT Imaging Maternal Medicine Imaging, Denny [facility] [address] [facility] [place] [phone] Health Maintenance Due Date Last Done Comments [...] counseling Need for prophylactic vaccination with combined hbgunojpgj-ybknmjx-sxgxhaiqp (DTP) vaccine documented in this encounter
--- OUTSIDE RECORDS SUMMARY | 2024-06-09 07:49 | External Medical Summary ---
Author Name Unknown Address Unknown Organization K01:LABORATORY [facility] [place] - [facility] [address] [place] [address] Laboratory Report Ordering Provider Test Date Status ALDO GRESHAM 03/18/2024 10:49:51 Final Observation Date Value Abnormality Reference (Units ) Status Retic, % (auto) 03/18/2024 10:49:51 2.29 Above high normal 0.80-1.90 (%) Final Reticulocytes, Absolute 03/18/2024 10:49:51 88.6 31.3-100.1 (K/uL) Final Reticulocyte fraction, immature 03/18/2024 10:49:51 23.4 Above high normal 2.5-20.6 (%) Final Reticulocyte HGB 03/18/2024 10:49:51 29.9 29.7-37.4 (pg) Final Performing Location LABORATORY [facility] [place] - [facility] [address] [place] [address]
--- OUTSIDE RECORDS SUMMARY | 2024-06-09 07:49 | External Medical Summary ---
Author Name Unknown Address Unknown Organization K01:LABORATORY [facility] [place] - [address] [facility] [place] [address] Laboratory Report Ordering Provider Test Date Status MPBACKER 03/18/2024 10:49:51 Final Observation Date Value Abnormality Reference (Units ) Status WBC, Total 03/18/2024 10:49:51 7.27 4.00-10.8 0 (K/uL) Final RBC 03/18/2024 10:49:51 3.80 3.85-5.15 (M/uL) Final Hemoglobin 03/18/2024 10:49:51 10.5 Below low normal 12 .0-15.3 (g/dL) Final Anemia reflex testing trigge rs on a HGB < 12.0 for Females and HGB < 13.0 for Males in accordance with the WHO Anemia Guidelines
Anemia reflex testing triggers on a HGB < 12.0 for Females and HGB < 13.0 for Males in accordance with the WHO Anemia Guidelines HCT 03/18/2024 10:49:51 33.1 Below low normal 36. 0-45.2 (%) Final MCV 03/18/2024 10:49:51 87.1 81.5-97.5 (fL) Final MCH 03/18/2024 10:49:51 27.6 27.0-34.0 (pg) Final MCHC 03/18/2024 10:49:51 31.7 32.0-36.0 (g/dL) Final RDW 03/18/2024 10:49:51 14.1 11.5-15.5 (%) Final Platelets 03/18/2024 10:49:51 184 140-400 (K /uL) Final MPV 03/18/2024 10:49:51 10.6 6.6-11.1 ( fL) Final Nucleated erythrocytes/100 leukocytes [Ratio] in Blood by Automated count 03/18/2024 10:49:51 0 <=0 (/100 WBCs) Final Performing Location LABORATORY [facility] [place] - [facility] [address]. [facility] [address]
--- OUTSIDE RECORDS SUMMARY | 2024-06-09 07:49 | External Medical Summary ---
Author Name Unknown Address Unknown Organization K01:LABORATORY [facility] [place] - [address] [facility] [place] [address] Laboratory Report Ordering Provider Test Date Status MPBACKER 03/18/2024 10:49:51 Final Observation Date Value Abnormality Reference (Units ) Status SYNC LEUKOCYTES IN BLOOD BY AUTOMATED COUNT 03/18/2024 10:49:51 7.27 4.00-10.80 (K/uL) Final Segs 03/18/2024 10:49:51 70.1 40.0-75.0 (%) Final Lymphs % 03/18/2024 10:49:51 16.6 Below low normal 18.0-42.0 (%) Final Monos 03/18/2024 10:49:51 9.6 1.0-11.0 (%) Final Eosinophils 03/18/2024 10:49:51 1.9 0.0-6.0 (%) Final Basos 03/18/2024 10:49:51 0.3 0.0-2.0 (%) Final Immature Granulocyte, Percent 03/18/2024 10:49:51 1.5 0.0-2.0 (%) Final Absolute Segs 03/18/2024 10:49:51 5.09 1.80-7.70 (K/uL) Final Lymphs, absolute 03/18/2024 10:49:51 1.21 1.00-4.80 (K/ul) Final Monos, Abs 03/18/2024 10:49:51 0.70 0.00-1.10 (K/uL) Final Eos, Abs 03/18/2024 10:49:51 0.14 0.00-0.70 (K/uL) Final Basos, Abs 03/18/2024 10:49:51 0.02 0.00-0.20 (K/uL) Final Immature Granulocytes, Number 03/18/2024 10:49:51 0.11 0.00-0.20 (K/uL) Final Performing Location LABORATORY [facility] [place] - [facility] [address] [place] [address]
--- OUTSIDE RECORDS SUMMARY | 2024-06-09 07:49 | External Medical Summary | Summary of Care ---
Author Name Unknown Organization [facility] Address [address] [facility] [place] [address] Phone [phone] Care Team Providers Care Die Repairer Forging Name Role Phone Unavailable Primary Care Provider Unavailabl e Reason for Visit * Reason Onset Date Comments Referral 12/25/2023 Encounter Details Date Type Department Care Team (Late st Contact Info) Description 12/25/2023 Telephone Fire Extinguisher Repairer Obstetrics Maternal Medicine, [place] [address] [place], [place] [phone] [place], Nurse Fire Extinguisher Repairer [facility] [address] [place], [place] [phone] Referral Allergies No known active allergiesdocumented as of this encounter (statuses as of 03/25/2024) Medications Medication Sig Dispensed Refills Start Date End Date Status Gummies 0.18-25 MG Oral Tablet Chewable Take by mouth. Active Ferrous Gluconate 240 (27 Fe) MG Oral Tablet (Iron 27) Take by mouth. Active documented as of this encounter (statuses as of 03/25/2024) Active Problems Problem Noted Date Diagnosed Date Antepartum anemia complicating 024 Health counseling 02/07/2024 Overview: Problem Action Taken Date entered Entered by Date resolved First Support noted. 02/07/2024 Ximena Pathak RN 02/07/2024 nutrition Due date verification letter given For [place] 02/07/2024 Ximena Pathak RN 02/07/2024 Problem Action [...] assessment of proteinuria (24-hour urine protein or fevuovp-gs-xcrwdvlffz ratio) and CBC, serum AST/ALT/creatinine. If patient [...] 01/24/24 124/80 Obesity affecting , antepartum 12/13/19 24 Overview: [...] as of this encounter (statuses as of 03/25/2024) Resolved Problems Problem Noted Date Diagnosed Date Resolved Date with 15 completed weeks gestation 12/28/2023 02/07/2024 documented as of this encounter (statuses as of 03/25/2024) Social History Tobacco Use Types Packs/Day Years [...] money to get more. Never true 02/08/2024 [place] Depression Scale Answer Date Recorded [place] Depression Scale Total 0 12/13/2023 The thought [...] Telephone Encounter - Era Matos OSA - 12/25/2023 2:22 PM EDT Spoke with Selwyn. Appointment scheduled. Patient aware of date, time and location of Maternal Medicine appointment. * Telephone Encounter - Era Matos OSA - 12/25/2023 11:40 AM EDT Called patient, no answer, VM not set up, sent MyG * Telephone Encounter - Ximena Chi CCMA - 12/25/2023 11:22 AM EDT Estimated Date of Delivery: 06/18/24 Please schedule for 45 MINUTE CONSULT SIMPLE MEDICAL WITH CONSUMER ELECTRONIC RETAIL SPECIALIST, in time frame of within 1 week at location [facility] with the indication of CHTN. Please schedule anatomy between 19-21 weeks (01/24/24-02/07/24). Referring Provider: Dina Carbajal CRNP documented in this encounter Plan of Treatment Upcoming Encounters Date Type Department Care Team (Late st Contact Info) Description 04/02/2024 8:00 AM EDT Office Visit Gynecology/Obstetrics [facility] [address] [place] [address] Dina Carbajal CRNP [address] [place] [address] Nurse Issac Healthy Beginnings Return Denny [place] [place] [address] 04/04/2024 3:15 PM EDT Office Visit Fire Extinguisher Repairer Obstetrics Maternal Medicine, [place] [address] [place] [address] Jose Alejandro Quick, [address] [place] [address] 04/04/2024 3:15 PM EDT Imaging [facility] [place] [address] [place] [address] 05/08/2024 8:45 AM EDT Imaging Maternal Medicine Imaging, [place]enny [place] [phone] 06/05/2024 8:45 AM EDT Imaging Maternal Medicine Imaging, [place]enny [place] [phone] Health Maintenance Due Date Last Done Comments DTaP,Tdap,and Td Vaccines (1 - Tdap) 2013 Hepatitis B (1 of 3 - 19+ 3-dose series) 2013 COVID-19 Vaccine ( - 2022-2 4 season) 2023 Influenza Vaccine (FLU shot) (Season Ended) 2024 Depression Screening 01/23/2025 01/24/2024 GFR 03/18/2025 03/18/2024, 12/13/2023 Pap Smear 12/12/2026 12/13/2023 Cervical Cancer Screening 12/12/2028 HPV/Co-Test 12/12/2028 12/13/2023 GARDASIL-HPV IMMUNIZATION SERIES Aged Out No [...]
--- OUTSIDE RECORDS SUMMARY | 2024-06-09 07:50 | External Medical Summary | Summary of Care ---
Author Name Unknown Organization [facility] Address [address] [facility] [place] [address] Phone [phone] Care Team Providers Care Vender Name Role Phone Unavailable Primary Care Provider Unavailabl e Reason for Visit * Reason Comments Upper Respiratory Infection SINCE SATURD AY ST YUE, HEADACHE, CHILLS, BODY ACHES, FEVER Encounter Details Date Type Department Care Team (Late st Contact Info) Description 01/24/2024 8:40 AM EDT [facility] Visit [facility] [address] [facility] [address] Chuyita Pathak CRNP [address] [facility] [place] [address] Upper respiratory tract infection, unspecified type*; Sore throat (viral); 19 weeks gestation of Allergies No known active allergiesdocumented as of this encounter (statuses as of 01/24/2024) Medications Medication Sig Dispensed Refills Start Date End Date Status Gummies 0.18-25 MG Oral Tablet Chewable Take by mouth. 0 Active Ferrous Gluconate 240 (27 Fe) MG Oral Tablet (Iron 27) Take by mouth. 0 Active Magnesium 400 MG Oral Tablet Take by mouth. 0 Active B-12 1000-400 MCG Sublingual Tablet Sublingual Place under the tongue. 0 Active Aspirin 81 MG Oral Tablet Delayed Release (SB Low Dose ASA EC) Take 1 Tablet by mouth in the morning. 0 Active Albuterol Sulfate HFA 108 (90 Base) MCG/ACT Inhalation Aerosol Solution Inhale 2 Puffs by mouth every 6 hours as needed for Dyspnea. 18 g 1 01/24/2024 Active documented as of this encounter (statuses as of 01/24/2024) Active Problems Problem Noted Date Diagnosed Date Upper respiratory tract infection 01/24/2024 Sore throat (viral) 01/24/2024 with 15 completed weeks gestation 12/07 Need for rubella vaccination 12/18/2023 Proteinuria 12/18/2023 Overview: Protein/creatinine ratio 348mg/g at NOB Supervision of high risk in [facility] 12/13/2023 Migraine with aura and with status [...] assessment of proteinuria (24-hour urine protein or pwqfvyp-tz-ariqyzbzxn ratio) and CBC, serum AST/ALT/creatinine. If patient [...] weeks BP Readings from Last 10 Encounters: 12/13/23 140/90 Baseline Preeclampsia Labs Lab Results Component Value Date/Time PLT 210 12/13/2023 09:54 AM CREATININE - [facility] 0.5 12/13/2023 09:54 AM AST - [facility] 30 12/13/2023 09:54 AM ALT - [facility] 36 (H) 12/13/2023 09:54 AM Protein/ Creatinine Ratio, Urine <150 mg/g 348 High 12/13/2023 Protein, Random Urine mg/dL 16 12/13/2023 Creatinine, Random Urine mg/dL 46 Last Assessment & Plan: Considerations: Women with chronic hypertension during are at significantly increased risk for morbidity. Signs and symptoms of superimposed pre-eclampsia were reviewed; instructed patient to contact primary OB care provider if these symptoms occur. Recommendations: Obtain baseline lab work ABIGAIL (if not already done) with assessment of proteinuria (24-hour urine protein or btqhdct-ou-tgavvtiypv ratio) and CBC, serum AST/ALT/creatinine. If patient [...] Between 37 0/7 and 39 6/7 weeks Obesity affecting , antepartum 12/13/19 Overview: Pre gravid BMI unknown BMI at first visit: 39.9 Class 2 obesity Early 1 hour GTT ordered, not yet completed No results found for: "50-G GESTATIONAL GLUCOSE", "100-G GESTATIONAL GLUCOSE", "HEMOGLOBIN A1C - [facility]", "50-G GESTATIONAL GLUCOSE, 1 HOUR - [facility]", "100-G GESTATIONAL GLUCOSE, FASTING - [facility]" Baseline Preeclampsia Labs Lab Results Component Value Date/Time PLT 210 12/13/2023 09:54 AM CREATININE - [facility] 0.5 12/13/2023 09:54 AM AST - [facility] 30 12/13/2023 09:54 AM ALT - [facility] 36 (H) 12/13/2023 09:54 AM Last Assessment & Plan: CONSIDERATIONS: Discussed obstetrical risks associated with class II obesity (pre- BMI of 35 to 39.9) Reviewed that the accuracy of ultrasound at diagnosing anomalies is significantly decreased for women with an increased BMI. RECOMMENDATIONS: Recommend restricting weight gain during to 11-20 pounds. Patient should be referred for a nutrition consult. Recommend evaluation for signs and symptoms (snoring, excessive daytime sleepiness witnessed apnea or unexplained hypoxia) of obstructive sleep apnea. If any of these are present, referral to Sleep Medicine specialist for further evaluation should be considered. Recommend performing gestational diabetes mellitus screen now (if not performed at first visit) and repeat again at 26-28 weeks if early screen is normal. Recommend Maternal- Medicine ultrasound for anatomy at 20 weeks and for growth every 4 weeks thereafter. For patients with Class 2 obesity, we recommend weekly surveillance starting at 37 weeks. Estimated Date of Delivery Comme nts Yes 06/18/2024 Based on Ultraso und documented as of this encounter (statuses as of 01/24/2024) Social History Tobacco Use Types Packs/Day Years Used Date Smoking Tobacco: Never Smokeless Tobacco: Never Alcohol Use Standard Drinks/Week Comments Not Currently 0 (1 standard drink = 0.6 oz pur e alcohol) Hunger Vital Sign Answer Date Recorded Within the past 12 months, y ou worried that your food would run out before you got the money to buy more. Never true 01/11/20 24 Within the past 12 months, t he food you bought just didn't last and you didn't have money to get more. Never true 01/11/2024 [place]en Depression Scale Answer Date Recorded [place] Depression Scale Total 0 12/13/2023 The thought [...] Sign Reading Time Taken Comments Blood Pressure 124/80 01/24/2024 8:41 AM EDT Pulse 108 01/24/2024 8:41 AM EDT Temperature 37 C (98.6 F) 01/24/2024 8:41 AM EDT Respiratory Rate - - Oxygen Saturation - - Inhaled Oxygen Concentration - - Weight - - Height - - Body Mass Index - - documented in this encounter Progress Notes * Chuyita Pathak CRNP - 01/24/2024 8:45 AM EDT URI Family Medicine Visit CC: Chief Complaint Patient presents with Upper Respiratory Infection SINCE SUNDAY MORN, ST, HEADACHE, CHILLS, BODY ACHES, FEVER History of Present Illness: Selwyn Christian is a 28 year old female presenting with URI symptoms x 6 days. Tested for covid: NEGATIVE x 2. 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 Tobacco Use Smoking status: Never Smokeless tobacco: Never Vaping Use Vaping Use: Never used Substance and Sexual Activity Alcohol use: Not Currently Drug use: Never Sexual activity: Yes Partners: Male Other Topics Concern Not on file Social History Narrative Not on file Social Determinants of Health Financial Resource Strain: Not on file Food Insecurity: No Food Insecurity (01/23/2024) Hunger Vital Sign Worried About Running Out of Food in the Last Year: Never true Ran Out of Food in the Last Year: Never true Transportation Needs: Not on file Physical Activity: Not on file Stress: Not on file Social Connections: Not on file Intimate Partner Violence: Not on file Housing Stability: Not on file PMH: Past Medical History: Diagnosis Date ASCUS of cervix with negative high risk HPV 12/2023 at new appointment Hypertension 2014 Migraines No past surgical history on file. Outpatient Medications Marked as Taking for the 01/24/24 encounter (Office Visit) with Chuyita Pathak CRNP Medication Sig Aspirin 81 MG Oral Tablet Delayed Release (SB Low Dose ASA EC) Take 1 Tablet by mouth in the morning. B-12 1000-400 MCG Sublingual Tablet Sublingual Place under the tongue. Magnesium 400 MG Oral Tablet Take by mouth. Ferrous Gluconate 240 (27 Fe) MG Oral Tablet (Iron 27) Take by mouth. Gummies 0.18-25 MG Oral Tablet Chewable Take by mouth. Review of patient's allergies indicates: No Known Allergies There is no immunization history on file for this patient. Physical Exam: BP 124/80 | Pulse 108 | Temp 37 C (98.6 F) (Tympanic) | LMP 08/24/2023 Physical Exam Constitutional: Appearance: She is obese. HENT: Head: Normocephalic. Right Ear: A middle ear effusion is present. Left Ear: A middle ear effusion is present. Mouth/Throat: Pharynx: Posterior oropharyngeal erythema present. Tonsils: No tonsillar exudate. Cardiovascular: Rate and Rhythm: Normal rate and regular rhythm. Pulmonary: Effort: Pulmonary effort is normal. Breath sounds: Normal breath sounds. Musculoskeletal: Cervical back: Normal range of motion. Lymphadenopathy: Cervical: No cervical adenopathy. Neurological: Mental Status: She is alert and oriented to person, place, and time. Psychiatric: Attention and Perception: Attention normal. Mood and Affect: Mood normal. Speech: Speech normal. Behavior: Behavior normal. Behavior is cooperative. Thought Content: Thought content normal. Cognition and Memory: Cognition and memory normal. Judgment: Judgment normal. Not feeling movement yet. Denies cramping or vaginal disharge Assessment and Plan: 1. Upper respiratory tract infection, unspecified type Uri symptoms x 6 days Suspicious for flu Check quad Check strep Add albuterol hfa prn cough Can use tylenol 2. Sore throat (viral) - STREP A SCREEN, POINT OF CARE (ENTER/EDIT) 3. 19 weeks gestation of NOT FEELING baby move yet No cramping or bleeding noted. Recommend supportive care including: -Humidifier -Rest -Push fluids -Reviewed pathophysiology of viral URI -Recommend handwashing and covering cough -Reviewed signs and symptoms in which to seek medical care I have advised the patient to call our office incase of any worsening or new symptoms. I spent a total of 20-29 minutes (exact time 25 mins) on the date of service in preparation, delivery, and documentation of the care provided to Selwyn Christian excluding any time spent in the performance of separately billed services. KARTHIK Cardoza, BETSEY [facility] documented in this encounter Miscellaneous Notes * Addendum Note - Charis Mayers LPN - 01/24/2024 9:00 AM EDTAddended by: CHARIS MAYERS on: 01/24/2024 09:00 AM Modules accepted: Orders documented in this encounter Plan of Treatment Upcoming Encounters Date Type Department Care Team (Late st Contact Info) Description 02/01/2024 10:30 AM EDT Office Visit [facility] Maternal [facility], [place] [address] [place] [address] Jose Alejandro Quick, [address] [place] [address] 02/01/2024 10:30 AM EDT Imaging [facility], [place] [address] [place] [address] 02/05/2024 8:45 AM EDT Office Visit Gynecology/Obstetrics [facility] [address] [place] [address] Leena Huizar CRNP [address] [place] [address] Scheduled Orders Name Type Priority Associated Diagnoses Orde r Schedule INFLUENZA A/B RSV SARS-COV2,PCR Lab Routine Upper respiratory tract infection, unspecified type Expected: 01/24/2024 (Approximate), Expires: 01/23/2025 GROUP A STREP PCR Lab Routine Sore throat (viral) Ordered: 01/24/2024 Health Maintenance Due Date Last Done Comments [...] Procedure Name Priority Date/Time Associated Diagnosis Comments STREP A SCREEN, POINT OF CARE (ENTER/EDIT) Routine 01/24/2024 Sore throat (viral) documented in this encounter Results * STREP A SCREEN, POINT OF CARE (ENTER/EDIT) (01/24/2024) Strep A Result Negative Negative Procedural Control Valid? Yes Lot Number [id number] Expiration Date 04/24/24 Swab Throat swab / Unknown 01/24/2024 Chuyita LEGGETT LAB POINT OF C ARE TEST ENTER/EDIT ORDERABLES documented in this encounter Visit Diagnoses Diagnosis Upper respiratory tract infection, unspecified type- Primary Sore throat (viral) Acute pharyngitis 19 weeks gestation of state, incidental documented in this encounter
--- OUTSIDE RECORDS SUMMARY | 2024-06-09 07:50 | External Medical Summary | Summary of Care ---
Author Name Unknown Organization [facility] Address [address] [place] [address] Phone [phone] Care Team Providers Care Cnc Lathe Programmer Name Role Phone Unavailable Primary Care Provider Unavailabl e Reason for Visit * Reason Comments Ultrasound Encounter Details Date Type Department Care Team (Late st Contact Info) Description 02/08/2024 10:15 AM EDT Office Visit [facility]st[facility] Maternal Medicine, [place] [address] [place] [address] Jose Alejandro Quick, [address] [place] [address] Obesity affecting , antepartum, unspecified obesity type*; Chronic hypertension in ; 21 weeks gestation of Allergies No known active allergiesdocumented as of this encounter (statuses as of 02/08/2024) Medications Medication Sig Dispensed Refills Start Date End Date Status Gummies 0.18-25 MG Oral Tablet Chewable Take by mouth. 0 Activ e Ferrous Gluconate 240 (27 Fe) MG Oral Tablet (Iron 27) Take by mouth. 0 Acti ve Magnesium 400 MG Oral Tablet [...] as of this encounter (statuses as of 02/08/2024) Active Problems Problem Noted Date Diagnosed Date Health counseling 02/07/2024 Overview: Problem Action Taken Date entered Entered by Date resolved First Support noted. 02/07/2024 Ximena Pathak RN 02/07/2024 nutrition Due date verification letter given For WIC 02/07/2024 Ximena Pathak RN 02/07/2024 Upper respiratory tract infection 01/24/2024 Sore throat (viral) 01/24/2024 Need for rubella vaccination 12/18/2023 Proteinuria 12/18/2023 Overview: Protein/creatinine ratio 348mg/g at NOB , supervision, high-risk 12/13/2023 Migraine with aura [...] assessment of proteinuria (24-hour urine protein or lunwhfl-oz-hwyswvojka ratio) and CBC, serum AST/ALT/creatinine. If patient [...] weeks BP Readings from Last 10 Encounters: 01/24/24 124/80 01/11/24 148/92 12/13/23 140/90 Baseline [...] home/office testing. Obesity affecting , antepartum 12/13/19 Overview: The [...] as of this encounter (statuses as of 02/08/2024) Resolved Problems Problem Noted Date Diagnosed Date Resolved Date with 15 completed weeks gestation 12/28/2023 02/07/2024 documented as of this encounter (statuses as of 02/08/2024) Social History Tobacco Use Types Packs/Day Years [...] the money to buy more. Never true 01/28/20 24 Within the past 12 months, t he food you bought just didn't last and you didn't have money to get more. Never true 01/28/2024 Allen Depression Scale Answer Date Recorded Allen Depression Scale Total 0 12/13/2023 The thought [...] Sign Reading Time Taken Comments Blood Pressure 142/87 02/08/2024 11:36 AM EDT Pulse - - Temperature - - Respiratory Rate - - Oxygen Saturation - - Inhaled Oxygen Concentration - - Weight - - Height - - Body Mass Index - - documented in this encounter Progress Notes * Jose Alejandro Quick, DO - 02/08/2024 12:57 PM EDT MATERNAL MEDICINE VISIT Selwyn Christian is at 21w2d who presents to [facility] for an ultrasound and follow-up of her high risk . PHYSICAL EXAM: BP 142/87 | LMP 08/24/2023 General: pleasant, alert and oriented, no acute distress She is being seen today by Maternal- Medicine for the following reasons: Problem List Items Addressed This Visit Chronic hypertension in Mild BP elevations noted today, though yesterday her BP in the office was normal and she reports normal values at home. She admits to some anxiety regarding this appointment. I suggested that she validate her home cuff by comparing to an office cuff, and we discussed initiating medications if she has frequent elevations on home/office testing. Obesity affecting , antepartum - Primary She presents for a anatomy survey secondary [...] identify all anomalies, but it is reassuring thatno anomalies were seen today. Other Visit Diagnoses 21 weeks gestation of We reviewed today's ultrasound findings. (For full report, please refer to ultrasound report provided separately). Ms. Christian's questions were answered to her satisfaction. RECOMMENDATIONS: Recommend surveillance starting at 37 weeks secondary to class II obesity. Recommend follow up ultrasound with MFM in 4 weeks for growth and completion of anatomy. Recommend repeat testing with a P/C ratio and/or confirmation of proteinuria with a 24 hour urine. Thank you for allowing us to participate in the care of this patient. Please call with any questions. Jose Alejandro Quick DO 02/08/2024 12:57 PM documented in this encounter Miscellaneous Notes * Assessment & Plan Note - Jose Alejandro Quick DO - 02/08/2024 12:55 PM EDT Associated Problem(s): Chronic hypertension in Mild BP elevations noted today, though yesterday her BP in the office was normal and she reports normal values at home. She admits to some anxiety regarding this appointment. I suggested that she validate her home cuff by comparing to an office cuff, and we discussed initiating medications if she has frequent elevations on home/office testing. * Assessment & Plan Note - Jose Alejandro Quick DO - 02/08/2024 11:46 AM EDT Associated Problem(s): Obesity affecting , antepartum She presents for a anatomy survey secondary [...] identify all anomalies, but it is reassuring thatno anomalies were seen today. documented in this encounter Plan of Treatment Upcoming Encounters Date Type Department Care Team (Late st Contact Info) Description 03/07/2024 8:30 AM EDT Office Visit Gynecology/Obstetrics [facility] [address] [place] [address] Leena Huizar CRNP [address] [place] [address] Nurse [facility] [address] [place] [address] Health Maintenance Due Date Last Done Comments [...] puerperium, unspecified as to episode of care 21 weeks gestation of state, incidental documented in this encounter"
--- OUTSIDE RECORDS SUMMARY | 2024-06-09 07:50 | External Medical Summary ---
Author Name Unknown Address Unknown Organization [id number] [address] [place] [address] Laboratory Report Ordering Provider Test Date Status CRUZITO CASTRO 01/24/2024 09:00:24 Final Observation Date Value Abnormality Reference (Units ) Status SARS Coronavirus 2 01/24/2024 09:00:24 Negative N egative Final No SARS-CoV2 Coronavirus RNA detected by PCR (amplified probe).
This express test was developed and its performance characteristics determined by [facility]. It has not been cleared or approved by the U.S. Food and Drug Administration (FDA). FDA does not require this test to go thru premarket FDA review. This test is used for clinical purposes. It should not be regarded as investigational or for research. This laboratory is certified under the Clinical Laboratory Improvement Amendments (CLIA) as qualified to perform high complexity clinical laboratory testing.

This test is a nucleic acid amplification test (NAAT), a reverse transcriptase polymerase chain reaction (RT-PCR) test, or a Centers for Disease Control-acceptable equivalent. The test is performed in a high complexity Clinical Laboratory Improvement Amendments-(CLIA) certified laboratory. The test is acceptable for SARS-CoV-2 diagnosis, surveillance, and travel within the [place] and to most countries. Please check with local testing authorities about requirements before travel.

The validation of bronchial specimens, tracheal aspirates, and sputum for this assay was developed and performance characteristics determined by [facility]. The validation of alternate specimen types has not been cleared or approved by the U.S. Food and Drug Administration (FDA). It has been determined that such clearance is not necessary. Influenza virus A RNA [Prese nce] in Specimen by [facility] with probe detection 01/24/2024 09:00:24 Negative Negative Final No Influenza A RNA detected by PCR (amplified probe) Influenza virus B RNA [Prese nce] in Specimen by [facility] with probe detection 01/24/2024 09:00:24 Negative Negative Final No Influenza B RNA detected by PCR (amplified probe) Respiratory syncytial virus RNA [Identifier] in Specimen by [facility] with probe detection 01/24/2024 09:00:24 Negative Negative Final No Respiratory Syncytial Vir us RNA detected by PCR (amplified probe) Performing Location [facility] [address] [place] [address]
--- OUTSIDE RECORDS SUMMARY | 2024-06-09 07:50 | External Medical Summary | Summary of Care ---
Author Name Unknown Organization [facility] Address [address] [facility] [place] [address] Phone [phone] Care Team Providers Care Spray Machine Operator Name Role Phone Unavailable Primary Care Provider Unavailabl e Reason for Visit * Reason Comments Upper Respiratory Infection SINCE SATURD AY ST YUE, HEADACHE, CHILLS, BODY ACHES, FEVER Encounter Details Date Type Department Care Team (Late st Contact Info) Description 01/24/2024 8:40 AM EDT [facility] [address] [facility] [address] Chuyita Pathak CR[facility] [address] [facility] [address] Upper respiratory tract infection, unspecified type*; Sore [...] at NOB Supervision of [facility] 12/13/2023 Migraine with aura and with [...] assessment of proteinuria (24-hour urine protein or ynyrhyh-zl-ajipastszt ratio) and CBC, serum AST/ALT/creatinine. If patient [...] assessment of proteinuria (24-hour urine protein or bocojqq-dt-rfaaiqrbow ratio) and CBC, serum AST/ALT/creatinine. If patient [...] money to get more. 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 KARTHIK Cardoza, BETSEY [facility] documented in this encounter Miscellaneous Notes * Addendum Note - Charis Mayers LPN - 01/24/2024 9:00 AM EDTAddended by: CHARIS MAYERS on: 01/24/2024 09:00 AM Modules accepted: Orders documented in this encounter Plan of Treatment Upcoming Encounters Date Type Department Care Team (Late st Contact Info) Description 02/01/2024 10:30 AM EDT Office Visit [facility] Obstetrics Maternal Medicine, [place] [address] [place] [address] Jose Alejandro Quick, [address] [place] [address] 02/01/2024 10:30 AM EDT Imaging [facility], [place] [address] [place] [address] 02/05/2024 8:45 AM EDT Office Visit Gynecology/Obstetrics [facility] [address] [place] [address] Leena Huizar CRNP [address] [place] [address] Scheduled Orders Name Type Priority Associated Diagnoses [...]
--- OUTSIDE RECORDS SUMMARY | 2024-06-09 07:50 | External Medical Summary | Summary of Care ---
Author Name Unknown Organization [facility] Address [address] [facility] [place] [address] Phone [phone] Care Team Providers Care Printing Film Stripper Name Role Phone Unavailable Primary Care Provider Unavailabl e Reason for Visit * Reason Comments Return Visit Encounter Details Date Type Department Care Team (Late st Contact Info) Description 02/07/2024 8:45 AM EDT Office Visit Gynecology/Obstetric s Martinezmemo [place] [address] [place] [address] BackerLeena CRNP [address] [place] [address] Supervision of high risk in second trimester*; Chronic hypertension in ; Obesity affecting , antepartum, unspecified obesity type; Need for rubella vaccination Allergies No known active allergiesdocumented as of this encounter (statuses as of 02/07/2024) Medications Medication Sig Dispensed Refills Start Date [...] as of this encounter (statuses as of 02/07/2024) Active Problems Problem Noted Date Diagnosed Date [...] assessment of proteinuria (24-hour urine protein or pvdbbew-cp-kmnnbxhgqn ratio) and CBC, serum AST/ALT/creatinine. If patient [...] assessment of proteinuria (24-hour urine protein or inwpbms-vl-xwbhxzxrkm ratio) and CBC, serum AST/ALT/creatinine. If patient [...] weeks Obesity affecting , antepartum 12/13/19 Overview: The [...] as of this encounter (statuses as of 02/07/2024) Resolved Problems Problem Noted Date Diagnosed Date Resolved Date with 15 completed weeks gestation 12/28/2023 02/07/2024 documented as of this encounter (statuses as of 02/07/2024) Social History Tobacco Use Types Packs/Day Years [...] money to get more. Never true 01/28/2024 [place] Depression Scale Answer Date Recorded [place] Depression Scale Total 0 12/13/2023 The thought [...] Sign Reading Time Taken Comments Blood Pressure 126/82 02/07/2024 8:35 AM EDT Pulse - - Temperature - - Respiratory Rate - - Oxygen Saturation - - Inhaled Oxygen Concentration - - Weight 108.4 kg (239 lb) 02/07/2024 8:35 AM EDT Height - - Body Mass Index 39.77 01/11/2024 9:11 AM EDT documented in this encounter Progress Notes * Patsy David LPN - 02/07/2024 8:34 AM EDT 21w1d Denies vaginal bleeding/rom Absent movement Had some spotting last nothing since No new concerns * Leena Huizar CRNP - 02/07/2024 8:31 AM EDT 21w1d Spotting 1 week ago, none since. No cramping. No movement yet. Taking baby ASA. BP stable off medication. Denies new SOLORIO, vision changes. Declines genetic screening. Has anatomy scan with [facility] tomorrow. 4 week return BETSEY Roland documented in this encounter Nursing Notes * Ximena Pathak RN - 02/07/2024 12:50 PM EDT have you cut down with your smoking n/a have you quit n/a have you seen a certifier no have you seen a social security specialist no have you received dental care during your no are you enrolled in WIC no do you receive food stamps or orellana assistance no are you having problems with depression, receiving counseling or taking prescribed medications denies have you had little interest in doing things, or have you been bothered by feeling down, depressed,or hopeless denies documented in this encounter Plan of Treatment Upcoming Encounters Date Type Department Care Team (Late st Contact Info) Description 02/08/2024 10:15 AM EDT Office Visit Risk Assessment Consultant Obstetrics Maternal Medicine, [place] [address] [place] [address] Jose Alejandro Quick, [address] [place] [address] 02/08/2024 10:15 AM EDT [facility], [place] [address] [place] [address] 03/07/2024 8:30 AM EDT Office Visit Gynecology/Obstetrics Bryce [place] [address] [place] [address] Leena Huizar CRNP [address] [place] [address] Nurse Issac [facility] Return [place] [address] [place] [facility] [address] Health Maintenance Due Date Last Done Comments [...] Comments URINALYSIS, POINT OF CARE (ENTER/EDIT) Routine 02/07/2024 Supervision of high risk in second trimester Chronic hypertension in documented in this encounter Results * URINALYSIS, POINT OF CARE (ENTER/EDIT) (02/07/2024) Color, Urine Yellow Yellow or Light Yellow Clarity, Urine Clear Clear Glucose, Urine Negative Negative mg/dL Bilirubin, Urine Negative Negative Ketone, Urine Negative Negative mg/dL Specific [place], Urine 1.020 1.003 - 1.030 Blood, Urine Negative Negative pH, Urine 7.0 5.0 - 7.5 units Protein, Urine Negative Negative mg/dL Urobilinogen, Urine 0.2 0.2 - 1.0 mg/dL Nitrite, Urine Negative Negative Esterase, Urine Negative Negative Urine 02/07/2024 Leena LEGGETT LAB POINT O F CARE [...] prophylactic vaccination and inoculation against rubella alone documented in this encounter
--- OUTSIDE RECORDS SUMMARY | 2024-06-09 07:50 | External Medical Summary | Summary of Care ---
Author Name Unknown Organization [facility] Address [address] [facility] [address] Phone [phone] Care Team Providers Care Freight Brake Operator Name Role Phone Unavailable Primary Care Provider Unavailabl e Reason for Visit * Reason Comments Return Visit Encounter Details Date Type Department Care Team (Late st Contact Info) Description 03/07/2024 8:30 AM EDT Office Visit Gynecology/Obstetri alethea [place] [address] [place] [address] Leena Huizar CRNP [address] [place] [address] Nurse Issac [facility] Return [place] [address] [place] [address] Supervision of high risk in second trimester*; [...] assessment of proteinuria (24-hour urine protein or rxoijek-tp-tkaxhqygwu ratio) and CBC, serum AST/ALT/creatinine. If patient [...] money to get more. Never true 02/08/2024 [place] Depression Scale Answer Date Recorded [place] Depression Scale Total 0 12/13/2023 The thought [...] Progress Notes * Patsy David LPN - 03/07/2024 8:32 AM EDT 25w2d Denies vaginal bleeding/rom + movement No new concerns * Leena Huizar CRNP - 03/07/2024 8:26 AM EDT 25w2d No cramping, bleeding, leaking. Baby is moving well. BP stable, no symptoms of preE. Seeing [facility] for routine growth scans. Discussed Tdap recommendation. Labs ordered for next visit, return in 2 weeks. BETSEY Roland documented in this encounter Nursing Notes * Ximena Pathak RN - 03/07/2024 8:52 AM EDT Patient seen by [facility] Poultry Hatchery Supervisor. documented in this encounter Plan of Treatment Upcoming Encounters Date Type Department Care Team (Late st Contact Info) Description 03/11/2024 3:15 PM EDT Office Visit Outside Sales Account Executive Obstetrics Maternal Medicine, [address] [address] Thu Toure [address] [place] [address] 03/11/2024 3:15 PM EDT Imaging [facility]iology [facility] [place], [address] [address] 03/18/2024 9:50 AM EDT Laboratory Laboratory, Juan[facility]o [facility] [address] [facility] [place] [phone] Kristy [place] [address] [place] [address] 03/18/2024 10:00 AM EDT Office Visit Gynecology/Obstetrics [facility] [address] [place] [address] Dina Carbajal CRNP [address] [place] [address] Nurse Steve [place] Return [facility] [address] [place] [address] 04/04/2024 3:15 PM EDT Office Visit Outside Sales Account Executive Obstetrics Maternal Medicine, [place] [address] [place] [address] Jose Alejandro Quick, [address] [place] [address] 04/04/2024 3:15 PM EDT [facility], [place] [address] [place] [address] 05/08/2024 8:45 AM EDT Imaging Maternal Medicine Imaging, Denny Zimm[place] [address] [place] [address] 06/05/2024 8:45 AM EDT Imaging Maternal Medicine Imaging, [place] [facility] [address] [place] [address] Scheduled Orders Name Type Priority Associated [...]
--- OUTSIDE RECORDS SUMMARY | 2024-06-09 07:50 | External Medical Summary | Summary of Care ---
Author Name Unknown Organization [facility] Address [address] [facility] [place] [address] Phone [phone] Care Team Providers Care Treating Plant Operator Name Role Phone Unavailable Primary Care Provider Unavailabl e Reason for Visit * Reason Comments Upper Respiratory Infection SINCE SATURD AY ST YUE, HEADACHE, CHILLS, BODY ACHES, FEVER Encounter Details Date Type Department Care Team (Late st Contact Info) Description 01/24/2024 8:40 AM EDT Office Visit [facility] [address] [facility] [address] Chuyita Pathak CRNP [address] [facility] [address] Upper respiratory tract infection, unspecified type*; Sore [...] at NOB Supervision of high risk in [facility] 12/13/2023 Migraine with aura and with status [...] assessment of proteinuria (24-hour urine protein or yyarzfi-xv-isincpoakh ratio) and CBC, serum AST/ALT/creatinine. If patient [...] assessment of proteinuria (24-hour urine protein or dgcgvbj-mw-iasklsvyqg ratio) and CBC, serum AST/ALT/creatinine. If patient [...] money to get more. 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 KARTHIK Cardoza, BETSEY [facility] documented in this encounter Miscellaneous Notes * Addendum Note - Charis Mayers LPN - 01/24/2024 9:00 AM EDTAddended by: CHARIS MAYERS on: 01/24/2024 09:00 AM Modules accepted: Orders documented in this encounter Plan of Treatment Upcoming Encounters Date Type Department Care Team (Late st Contact Info) Description 02/01/2024 10:30 AM EDT Office Visit Tip Stretcher Obstetrics Maternal Medicine, [place] [address] [place] [address] Jose Alejandro Quick, [address] [place] [address] 02/01/2024 10:30 AM EDT [facility], [place] [address] [place] [address] 02/05/2024 8:45 AM EDT Office Visit Gynecology/Obstetrics [facility] [address] [place] [address] Leena Huizar CRNP [address] [place] [address] Scheduled Orders Name Type Priority Associated Diagnoses [...]
--- OUTSIDE RECORDS SUMMARY | 2024-06-09 07:50 | External Medical Summary ---
Author Name Unknown Address Unknown Organization K01[place] [place] [address] [place] [address] Laboratory Report Ordering Provider Test Date Status MPBACKER 02/18/2024 08:21:35 Final Normal: <150 mg/24 hours<br/ >High: 150-500 mg/24 hours
Very High: >500 mg/24 hours
Nephrotic: >3000 mg/24 hours Observation Date Value Abnormality Reference (Units ) Status Protein, 24-hr Urine 02/18/2024 08:21:35 14 (mg/dL) Final Urine Volume 02/18/2024 08:21:35 2700 (mL) Final Protein, 24-hr Urine 02/18/2024 08:21:35 378 Above high normal <150 (mg/24 hours) Final Performing Location [facility] [place] [address] [place] [address]
--- OUTSIDE RECORDS SUMMARY | 2024-06-09 07:50 | External Medical Summary | Summary of Care ---
Author Name Unknown Organization [facility] Address [address] [facility] [place] [address] Phone [phone] Care Team Providers Care Salesperson Used Cars Name Role Phone Unavailable Primary Care Provider Unavailabl e Reason for Visit * Reason Comments Outpatient Testing Encounter Details Date Type Department Care Team (Late st Contact Info) Description 01/11/2024 8:40 AM EDT Laboratory Laboratory, [facility] [place] [id number] [employer] [facility] [address] Encounter for supervision of normal first in second trimester; Obesity, Class II, BMI 35-39.9 Allergies No known active allergiesdocumented as of this encounter (statuses as of 01/11/2024) Medications Medication Sig Dispensed Refills Start Date [...] by mouth in the morning. 0 Active documented as of this encounter (statuses as of 01/11/2024) Active Problems Problem Noted Date Diagnosed Date with 15 completed weeks gestation 12/07 Need for rubella vaccination 12/18/2023 Proteinuria 12/18/2023 Overview: Protein/creatinine ratio 348mg/g at NOB Super[facility] Migraine with aura and with status [...] assessment of proteinuria (24-hour urine protein or osfwuqk-wk-xdcoigkdsk ratio) and CBC, serum AST/ALT/creatinine. If patient [...] assessment of proteinuria (24-hour urine protein or dvgekib-ki-ckozmsisoo ratio) and CBC, serum AST/ALT/creatinine. If patient [...] as of this encounter (statuses as of 01/11/2024) Social History Tobacco Use Types Packs/Day Years Used Date Smoking Tobacco: Never Smokeless Tobacco: Never Alcohol Use Standard Drinks/Week Comments Not Currently 0 (1 standard drink = 0.6 oz pur e alcohol) Hunger Vital Sign Answer Date Recorded Within the past 12 months, y ou worried that your food would run out before you got the money to buy more. Never true 11/01/19 24 Within the past 12 months, t he food you bought just didn't last and you didn't have money to get more. Never true 11/01/2023 [place] Depression Scale Answer Date Recorded [place] Depression Scale Total 0 12/13/2023 The thought [...] Care Team (Late st Contact Info) Description 01/25/2024 8:30 AM EDT Office Visit Gynecology/Obstetrics [facility] [address] [place] [address] Leena Huizar CRNP [address] [place] [address] 02/01/2024 10:30 AM EDT Office Visit Voip Network Technician Obstetrics Maternal Medicine, [place] [address] [place] [address] Jose Alejandro Quick DO [address] [place] [address] 02/01/2024 10:30 AM EDT [facility], [place] [address] [place] [address] Pending Results Name Type Priority Associated Diagnoses Date /Time 50-G GESTATIONAL GLUCOSE, 1 HOUR Lab Routine Encounter for supervision of normal first in second trimester Obesity, Class II, BMI 35-39.9 01/11/2024 9:41 AM EDT Health Maintenance Due Date Last Done Comments Depression Screening 2006 DTaP,Tdap,and Td Vaccines (1 - Tdap) 2013 Hepatitis B (1 of 3 - 19+ 3- dose series) 2013 COVID-19 Vaccine ( - 2022-2 4 season) 2023 Influenza Vaccine (FLU shot) (Season Ended) 2024 GFR 12/12/2024 12/13/2023 Pap Smear 12/12/2026 12/13/2023 GARDASIL-HPV IMMUNIZATION [...] as of this encounter Visit Diagnoses Diagnosis Encounter for supervision of normal first in second trimester Supervision of normal first Obesity, Class II, BMI 35-39.9 Morbid obesity documented in this encounter
--- OUTSIDE RECORDS SUMMARY | 2024-06-09 07:50 | External Medical Summary | Summary of Care ---
Author Name Unknown Organization [facility] Address [address] [facility] [place] [address] Phone [phone] Care Team Providers Care Metallographer Name Role Phone Unavailable Primary Care Provider Unavailabl e Reason for Visit * Reason Comments Return Visit Encounter Details Date Type Department Care Team (Late st Contact Info) Description 02/07/2024 8:45 AM EDT Office Visit Gynecology/Obstetric s Martinezmemo [place] [address] [place] [address] BackerLeena CRNP [address] [place] [address] Supervision of high risk in second trimester*; [...] assessment of proteinuria (24-hour urine protein or vndwxjq-pg-iedwjlsicy ratio) and CBC, serum AST/ALT/creatinine. If patient [...] assessment of proteinuria (24-hour urine protein or dtvdpez-os-tmjtjiaene ratio) and CBC, serum AST/ALT/creatinine. If patient [...] money to get more. Never true 01/28/2024 [place] Depression Scale Answer Date Recorded [place] Depression Scale Total 0 12/13/2023 The thought [...] Declines genetic screening. Has anatomy scan with MFM tomorrow. 4 week return BETSEY Roland documented in this encounter Plan of Treatment Upcoming Encounters Date Type Department Care Team (Late st Contact Info) Description 02/08/2024 10:15 AM EDT Office Visit Forest Fire Prevention Specialist Obstetrics Maternal Medicine, [address] [address] Jose Alejandro Quick, [address] [place] [address] 02/08/2024 10:15 AM EDT [facility], [place] [address] [place] [address] 03/07/2024 8:30 AM EDT Office Visit Gynecology/Obstetrics Bryce [place] [address] [place] [address] Leena Huizar CRNP [address] [place] [address] Nurse Issac [facility] Return [place] [address] [place] [address] Health Maintenance Due Date Last Done Comments DTaP,Tdap,and Td Vaccines (1 - Tdap) 2013 Hepatitis B (1 of 3 - 19+ 3- dose series) 2013 COVID-19 Vaccine (1 - 2022-2 [...] Negative Ketone, Urine Negative Negative mg/dL Specific [place], Urine 1.020 1.003 - 1.030 Blood, Urine Negative Negative pH, Urine 7.0 5.0 - 7.5 units Protein, Urine Negative Negative mg/dL Urobilinogen, Urine 0.2 0.2 - 1.0 mg/dL Nitrite, Urine Negative Negative Esterase, Urine Negative Negative Urine 02/07/2024 Leena Blair Backer BETSEY LAB POINT O F CARE TEST ENTER/EDIT [...]
--- OUTSIDE RECORDS SUMMARY | 2024-06-09 07:50 | External Medical Summary | Summary of Care ---
Author Name Unknown Organization [facility] Address [address] [facility] [address] Phone [phone] Care Team Providers Care Milling/Polishing Operator Name Role Phone Unavailable Primary Care Provider Unavailabl e Reason for Visit * Reason Comments Return Visit Encounter Details Date Type Department Care Team (Late st Contact Info) Description 01/11/2024 9:15 AM EDT Office Visit Gynecology/Obstetric s Martinezmemo [place] [address] [place] [address] Nola Meyer PA-C [address] [place] [address] Supervision of high risk in second trimester*; Migraine with aura and with status migrainosus, not intractable; Chronic hypertension in ; Obesity affecting , antepartum, unspecified obesity type; Need for rubella vaccination; Proteinuria, unspecified type Allergies No known active allergiesdocumented as of [...] NOB Supervision of high risk in second [facility] 12/13/2023 Migraine with aura and with [...] assessment of proteinuria (24-hour urine protein or rnktxvs-zp-yvtambechq ratio) and CBC, serum AST/ALT/creatinine. If patient [...] assessment of proteinuria (24-hour urine protein or dencnxy-rl-texbacwvql ratio) and CBC, serum AST/ALT/creatinine. If patient [...] money to get more. Never true 11/01/2023 [place] Depression Scale Answer Date Recorded [place] Depression Scale Total 0 12/13/2023 The thought [...] Sign Reading Time Taken Comments Blood Pressure 148/92 01/11/2024 9:11 AM EDT rec heck 142/88 Pulse - - Temperature - - Respiratory Rate - - Oxygen Saturation - - Inhaled Oxygen Concentration - - Weight 110.7 kg (244 lb) 01/11/2024 9:11 AM EDT Height 165.1 cm (5' 5") 01/11/2024 9:11 AM EDT Body Mass Index 40.6 01/11/2024 9:11 AM EDT documented in this encounter Progress Notes * Nola Meyer PA-C - 01/11/2024 9:38 AM EDT 17w2d BP 148/92, improved to 142/88. No proteins by site dip. Elevated with NOB last visit 140/90. CHTN, last on medication 6 years ago. D/c as BP normalized. Has not had BP issues that she knows of since. Checks BP at home, states typically does not get over 140/90. States maybe occasionally has seen low 140's but normalized <140 with recheck. Diastolic never over 90. Having h/a, takes tylenol but doesn't help. Denies cp, SOB, RUQ pain, vision changes. Discussed treatment with start of BP meds today. Would like to avoid meds if she can especially given home BP readings WNL. Discussed return in 2 weeks, if still elevated advised start of medication at that time. She was agreeable. Will continue to monitor BP at home, call if >=160/100. She has started ASA 81mg. Completing early 1 hour gtt today Anatomy with MFM Declines genetics screening including MSAFP and NIPT. RTC in 2 weeks documented in this encounter Nursing Notes * Korin Samson LPN - 01/11/2024 9:19 AM EDT 17w2d Daily headaches. Elevated BP today. Denies CP, blurry vision. Early gtt today. documented in this encounter Plan of Treatment Upcoming Encounters Date Type Department Care Team (Late st Contact Info) Description 01/25/2024 8:30 AM EDT [facility] [address] [place] [address] Leena Huizar CRNP [address] [place] [address] 02/01/2024 10:30 AM EDT Office Visit Abstract Checker Obstetrics Maternal Medicine, [place] [address] [facility] [place] [address] Jose Alejandro Quick, DO [address] [place] [address] 02/01/2024 10:30 AM EDT [facility] [address] [place] [address] Health Maintenance Due Date Last Done Comments [...] Comments URINALYSIS, POINT OF CARE (ENTER/EDIT) Routine 01/11/2024 Chronic hypertension in documented in this encounter Results * URINALYSIS, POINT OF CARE (ENTER/EDIT) (01/11/2024) Color, Urine Yellow Yellow or Light Yellow Clarity, Urine Clear Clear Glucose, Urine Negative Negative mg/dL Bilirubin, Urine Negative Negative Ketone, Urine Negative Negative mg/dL Specific [place], Urine 1.010 1.003 - 1.030 Blood, Urine Negative Negative pH, Urine 7.0 5.0 - 7.5 units Protein, Urine Negative Negative mg/dL Urobilinogen, Urine 0.2 0.2 - 1.0 mg/dL Nitrite, Urine Negative Negative Esterase, Urine Negative Negative Urine 01/11/2024 Nola Meyer PA-C LAB POINT OF CARE TE ST ENTER/EDIT ORDERABLES documented in this encounter Visit Diagnoses Diagnosis Supervision of high risk in second trimester- Primary Unspecified high-risk Migraine with aura and with status migrainosus, not intractable Migraine with aura, with intractable migraine, so stated, with status migrainosus Chronic hypertension in Benign essential hypertension complicating , childbirth, and the puerperium, unspecified as to episode of care Obesity affecting , antepartum, unspecified obesity type Need for rubella vaccination Need for prophylactic vaccination and inoculation against rubella alone Proteinuria, unspecified type documented in this encounter
--- OUTSIDE RECORDS SUMMARY | 2024-06-09 07:50 | External Medical Summary | Summary of Care ---
Author Name Unknown Organization [facility] Address [address] [facility] [place] [address] Phone [phone] Care Team Providers Care Digital Media Analyst Name Role Phone Unavailable Primary Care Provider Unavailabl e Encounter Details Date Type Department Care Team (Late st Contact Info) Description 01/31/2024 Telephone Gynecology/Obstetrics [facility] [address] [place] [address] Delfino Guerrier MD [address] [place] [address] Allergies No known active allergiesdocumented as of this encounter (statuses as of 02/11/2024) Medications Medication Sig Dispensed Refills Start Date [...] as of this encounter (statuses as of 02/11/2024) Active Problems Problem Noted Date Diagnosed Date [...] assessment of proteinuria (24-hour urine protein or hqgxhjf-wb-bixsbxzpww ratio) and CBC, serum AST/ALT/creatinine. If patient [...] as of this encounter (statuses as of 02/11/2024) Resolved Problems Problem Noted Date Diagnosed Date Resolved Date with 15 completed weeks gestation 12/28/2023 02/07/2024 documented as of this encounter (statuses as of 02/11/2024) Social History Tobacco Use Types Packs/Day Years [...] money to get more. Never true 02/08/2024 [place] Depression Scale Answer Date Recorded [place] Depression Scale Total 0 12/13/2023 The thought [...] encounter Miscellaneous Notes * Telephone Encounter - Carlie Chery LPN - 01/31/2024 4:11 PM EDT Patient 20w1d called c/o vaginal bleeding. Is there any pain associated with your bleeding? no Have you had a recent US? no Are you experiencing any vaginal itching, burning, ordor, or other dischage? no Have you had recent intercourse or vaginal exam? No Patient states it was just light with wiping. She has been sick and coughing a lot. She has her anatomy US next Sunday. No recent intercourse or anything in the vagina. I advised her to be on pelvic rest until US to assess location of placenta. Reviewed bleeding precautions and advised to call backwith heavy bleeding, gushing/leaking fluid or pain. She will also push fluids. Will have Dr. Valentine review for any further advice or recommendations. documented in this encounter Plan of Treatment Upcoming Encounters Date Type Department Care Team (Late st Contact Info) Description 02/15/2024 8:30 AM EDT Nurse Only Gynecology/Obstetrics Bryce Davenport [address] [place] [address] [place], Nurse Obgyn Injection [address] [place] [address] 03/07/2024 8:30 AM EDT Office Visit Gynecology/Obstetrics Bryce Davenport [address] [place] [address] Leena Huizar CRNP [address] [place] [address] Nurse Issac Healthy [facility] Return Denny [address] [place] [address] 03/11/2024 3:15 PM EDT Office Visit Animal Control Officer Obstetrics Maternal Medicine, [address] [address] Tejal Thu Justin Gina, [facility] [address] 03/11/2024 3:15 PM EDT Imaging Radiology [facility], [place] [address] [place] [address] 04/04/2024 3:15 PM EDT Office Visit Animal Control Officer Obstetrics Maternal Medicine, [address] [address] Jose Alejandro Quick, [facility] [address] 04/04/2024 3:15 PM EDT Imaging Radiology [address] [address] 05/08/2024 8:45 AM EDT Imaging Maternal Medicine Imaging, [facility] [address] [place] [address] 06/05/2024 8:45 AM EDT Imaging Maternal Medicine Imaging, [facility] [address] [place] [address] Health Maintenance Due Date Last Done Comments [...]
--- OUTSIDE RECORDS SUMMARY | 2024-06-09 07:50 | External Medical Summary | Summary of Care ---
Author Name Unknown Organization [facility] Address [address] [facility] [address] Phone [phone] Care Team Providers Care Fiber Worker Name Role Phone Unavailable Primary Care Provider Unavailabl e Encounter Details Date Type Department Care Team (Late st Contact Info) Description 02/15/2024 8:30 AM EDT Nurse Only Gynecology/Obstetrics [facility] [address] [place] [address] Gw, Nurse Obgyn Injection [address] [facility] [place] [address] Allergies No known active allergiesdocumented as of this encounter (statuses as of 02/15/2024) Medications Medication Sig Dispensed Refills Start Date [...] as of this encounter (statuses as of 02/15/2024) Active Problems Problem Noted Date Diagnosed Date [...] assessment of proteinuria (24-hour urine protein or jbwptwe-hj-qcbvqppcdv ratio) and CBC, serum AST/ALT/creatinine. If patient [...] as of this encounter (statuses as of 02/15/2024) Resolved Problems Problem Noted Date Diagnosed Date Resolved Date with 15 completed weeks gestation 12/28/2023 02/07/2024 documented as of this encounter (statuses as of 02/15/2024) Social History Tobacco Use Types Packs/Day Years [...] money to get more. Never true 02/08/2024 [place] Depression Scale Answer Date Recorded [place] Depression Scale Total 0 12/13/2023 The thought [...] Sign Reading Time Taken Comments Blood Pressure 130/82 02/15/2024 8:40 AM EDT Pulse - - Temperature - - Respiratory Rate - - Oxygen Saturation - - Inhaled Oxygen Concentration - - Weight - - Height - - Body Mass Index - - documented in this encounter Nursing Notes * Elida Gaxiola RN - 02/15/2024 8:41 AM EDT Patient here for BP check per [facility] Not currently on medication BP good in office Cuff calibrated- patient's home automatic cuff is reading 138/95 today, so cuff is getting higher readings compared to in office manual BP of 130/82. Patient reports she is not able to provide a urine sample at time of visit. Reviewed with Leena Huizar in office. Advised that she stop at lab today to pickling grader supplies to do 24 hour urine and made patient aware to call office with any readings >140/90 or any new/concerning symptoms, she verbalized understanding to all. documented in this encounter Plan of Treatment Upcoming Encounters Date Type Department Care Team (Late st Contact Info) Description 03/07/2024 8:30 AM EDT Office Visit Gynecology/Obstetrics Bryce Davenport [address] [place] [address] Backer, BETSEY Kc [address] [place] [address] Nurse Issac Healthy Beginnings Return Denny [address] [place] [address] 03/11/2024 3:15 PM EDT Office Visit Stitcher Special Machine Obstetrics Maternal Medicine, [address] [address] Radha Tourene Justin Gina, DO [address] [place] [address] 03/11/2024 3:15 PM EDT Imaging Radiology [facility] [address] [place] [address] 04/04/2024 3:15 PM EDT Office Visit Stitcher Special Machine Obstetrics Maternal Medicine, [place] [address] [place] [address] Jose Alejandro Quick, [address] [place] [address] 04/04/2024 3:15 PM EDT Imaging Radiology [place] [address] [place] [address] 05/08/2024 8:45 AM EDT Imaging Maternal Medicine Imaging, [facility] [address] [facility] [facility] [place] [phone] 06/05/2024 8:45 AM EDT Imaging Maternal Medicine Imaging, [facility] [address] [place] [facility] [place] [address] Health Maintenance Due Date Last Done [...]
--- OUTSIDE RECORDS SUMMARY | 2024-06-09 07:50 | External Medical Summary | Summary of Care ---
Author Name Unknown Organization [facility] Address [address] [facility] [place] [address] Phone [phone] Care Team Providers Care Tile Molder Name Role Phone Unavailable Primary Care Provider Unavailabl e Reason for Visit * Reason Comments Return Visit Encounter Details Date Type Department Care Team (Late st Contact Info) Description 02/07/2024 8:45 AM EDT Office Visit Gynecology/Obstetric s Martinezmemo Davenport [address] [place] [address] BackerLeena CRNP [address] [place] [address] Supervision of high risk in second trimester*; [...] assessment of proteinuria (24-hour urine protein or fpygmnb-hk-hbsijlygpf ratio) and CBC, serum AST/ALT/creatinine. If patient [...] assessment of proteinuria (24-hour urine protein or dgeflty-ne-bjxvvyccdt ratio) and CBC, serum AST/ALT/creatinine. If patient [...] money to get more. Never true 01/28/2024 [place] Depression Scale Answer Date Recorded [place] Depression Scale Total 0 12/13/2023 The thought [...] Declines genetic screening. Has anatomy scan with [facility] tomorrow. 4 week return BETSEY Roland documented in this encounter Plan of Treatment Upcoming Encounters Date Type Department Care Team (Late st Contact Info) Description 02/08/2024 10:15 AM EDT Office Visit Research Test Engine Evaluator Obstetrics Maternal Medicine, [place] [address] [place] [address] Jose Alejandro Quick DO [address] [place] [address] 02/08/2024 10:15 AM EDT [facility], [place] [address] [place] [address] 03/07/2024 8:30 AM EDT Office Visit Gynecology/Obstetrics [address] [place] [address] BackerLeena CRNP [address] [place] [address] Nurse Issac Healthy Beginnings Return Denny [address] [place] [address] Health Maintenance Due Date Last Done Comments [...] Negative Ketone, Urine Negative Negative mg/dL Specific Shiner, Urine 1.020 1.003 - 1.030 Blood, Urine [...]
--- OUTSIDE RECORDS SUMMARY | 2024-06-09 07:50 | External Medical Summary | Summary of Care ---
Author Name Unknown Organization [facility] Address [address] [facility] [place] [address] Phone [phone] Care Team Providers Care Pan Washer Hand Name Role Phone Unavailable Primary Care Provider Unavailabl e Reason for Visit * Reason Comments Outpatient Testing Encounter Details Date Type Department Care Team (Late st Contact Info) Description 02/18/2024 8:20 AM EDT Laboratory Laboratory, [facility] 132 [facility] [place] [address] Al, Specimen Drop Off [facility] 132 [facility] [place] [address] Chronic hypertension in ; Gestational proteinuria in second trimester Allergies No known active allergiesdocumented as of this encounter (statuses as of 02/18/2024) Medications Medication Sig Dispensed Refills Start Date [...] as of this encounter (statuses as of 02/18/2024) Active Problems Problem Noted Date Diagnosed Date [...] assessment of proteinuria (24-hour urine protein or qpqecif-ob-ubwtwewggr ratio) and CBC, serum AST/ALT/creatinine. If patient [...] as of this encounter (statuses as of 02/18/2024) Resolved Problems Problem Noted Date Diagnosed Date Resolved Date with 15 completed weeks gestation 12/28/2023 02/07/2024 documented as of this encounter (statuses as of 02/18/2024) Social History Tobacco Use Types Packs/Day Years [...] money to get more. Never true 02/08/2024 Brothers Depression Scale Answer Date Recorded Brothers Depression Scale Total 0 12/13/2023 The thought [...] Office Visit Gynecology/Obstetrics Bryce Davenport [address] [facility] [place] [address] Leena Huizar CRNP [address] [facility] [place] [address] Nurse Issac [facility] Beginnings Return Denny [address] [place] [address] 03/11/2024 3:15 PM EDT Office Visit Sider Mechanic Obstetrics Maternal Medicine, [address] [address] Thu Toure, [facility] [address] 03/11/2024 3:15 PM EDT Imaging Radiology [place] [address] [place] [address] 04/04/2024 3:15 PM EDT Office Visit Sider Mechanic Obstetrics Maternal Medicine, [place] [address] [place] [address] Jose Alejandro Quick, [facility] [place] [address] 04/04/2024 3:15 PM EDT Imaging Radiology [place] [address] [place] [address] 05/08/2024 8:45 AM EDT Imaging Maternal Medicine Imaging, Denny Davenport [address] [place] [address] 06/05/2024 8:45 AM EDT Imaging Maternal Medicine Imaging, Denny Davenport [address] [place] [phone] Pending Results Name Type Priority Associated Diagnoses Date /Time URINE PROTEIN, 24 HOUR Lab Routine Chronic hypertension in Gestational proteinuria in second trimester 02/18/2024 8:21 AM EDT Health Maintenance Due Date Last [...] as of this encounter Visit Diagnoses Diagnosis Chronic hypertension in Benign essential hypertension complicating , childbirth, and the puerperium, unspecified as to episode of care Gestational proteinuria in second trimester Unspecified antepartum renal disease documented in this encounter
--- OUTSIDE RECORDS SUMMARY | 2024-06-09 07:50 | External Medical Summary | Summary of Care ---
Author Name Unknown Organization [facility] Address [address] [facility] [place] [address] Phone [phone] Care Team Providers Care Folder Operator Name Role Phone Unavailable Primary Care Provider Unavailabl e Encounter Details Date Type Department Care Team (Late st Contact Info) Description 01/24/2024 Telephone Gynecology/Obstetrics [facility] [address] [place] [address] Delfino Guerrier MD [address] [place] [address] Allergies No known active allergiesdocumented as of [...] at [facility]B Supervision of high risk in [facility] 12/13/2023 Migraine with aura and with [...] assessment of proteinuria (24-hour urine protein or dcvngki-wk-omhwinmzqf ratio) and CBC, serum AST/ALT/creatinine. If patient [...] assessment of proteinuria (24-hour urine protein or ukxgqdd-xc-hdqwgrvbrn ratio) and CBC, serum AST/ALT/creatinine. If patient [...] the money to buy more. Never true 01/23/20 24 Within the past 12 months, t he food you bought just didn't last and you didn't have money to get more. Never true 01/23/2024 Hart Depression Scale Answer Date Recorded Hart Depression Scale Total 0 12/13/2023 The thought [...] Telephone Encounter - Carlie Chery LPN - 01/24/2024 2:08 PM EDT Patient called with cold symptoms Medications safe to take for a cold in as listed in the Next Nine Months book are: Sudafed, Dimetapp,Chlortimeton,Tylenol Cold and Sinus, Breathe Right Strips, [place] Nasal [place], and Benadryl. For a cough:Plain Robitusin, Vicks Vapor-Rub,Delsym, Cepacol lozenges or Chloraseptic spray.Tylenol may be taken for minor aches and pains, do not exceed 1000mg in 4 hours. documented in this encounter Plan of Treatment Upcoming Encounters Date Type Department Care Team (Late st Contact Info) Description 02/01/2024 10:30 AM EDT Office Visit Instrument Specialist Obstetrics Maternal Medicine, [place] [address] [place] [address] Jose Alejandro Qucik DO [address] [place] [address] 02/01/2024 10:30 AM EDT Imaging Radiology [facility], [place] [address] [place] [address] 02/05/2024 8:45 AM EDT Office Visit Gynecology/Obstetrics [facility] [address] [place] [address] Leena Huizar CRNP [address] [place] [address] Health Maintenance Due Date Last Done Comments [...]
--- OUTSIDE RECORDS SUMMARY | 2024-06-09 07:50 | External Medical Summary | Summary of Care ---
Author Name Unknown Organization [facility] Address [address] [facility] [place] [address] Phone [phone] Care Team Providers Care Critical Care Specialist Name Role Phone Unavailable Primary Care Provider Unavailabl e Encounter Details Date Type Department Care Team (Late st Contact Info) Description 02/08/2024 Telephone Gynecology/Obstetrics [facility] [address] [place] [address] BackLeena michael CRNP [address] [place] [address] Allergies No known active allergiesdocumented as of [...] assessment of proteinuria (24-hour urine protein or ztfkzio-bf-akoissaqrn ratio) and CBC, serum AST/ALT/creatinine. If patient [...] money to get more. Never true 01/28/2024 [place] Depression Scale Answer Date Recorded [place] Depression Scale Total 0 12/13/2023 The thought [...] Telephone Encounter - Carlie Chery LPN - 02/08/2024 3:43 PM EDT Pt notified and scheduled. * Telephone Encounter - Carlie Chery LPN - 02/08/2024 1:48 PM EDT left message for patient to call office * Telephone Encounter - Leena Huizar CRNP - 02/08/2024 1:01 PM EDT Reviewed MFM note from her visit there today. Recommend 24 urine collection due to elevated protein/creatinine ratio earlier in . Can pickling solution maker container at the lab, please review instructionsfor collection. BP slightly elevated at M; recommend BP check in our office sometime next week. Advise that she bring her home cuff to ensure it is calibrated. BETSEY Roland documented in this encounter Plan of Treatment Upcoming Encounters Date Type Department Care Team (Late st Contact Info) Description 02/15/2024 8:30 AM EDT Nurse Only Gynecology/Obstetrics Bryce Zimmermans [address] [place] [address] Gw, Nurse Obgyn Injection [address] [place] [address] 03/07/2024 8:30 AM EDT Office Visit Gynecology/Obstetrics Bryce Zimmermans [address] [place] [address] Backer, BETSEY Kc [address] [place] [address] Nurse Issac Healthy Beginnings Return Denny [place] [address] 03/11/2024 3:15 PM EDT Office Visit Operations Support Representative Obstetrics Maternal Medicine, [place] [address] [place] [address] Thu Toure, [address] [place] [address] 03/11/2024 3:15 PM EDT Imaging Radiology [place] [address] [place] [address] 04/04/2024 3:15 PM EDT Office Visit Operations Support Representative Obstetrics Maternal Medicine, [place] [address] [place] [address] Jose Alejandro Quick, [address] [place] [address] 04/04/2024 3:15 PM EDT Imaging Radiology [place] [address] [place] [address] 05/08/2024 8:45 AM EDT Imaging Maternal Medicine Imaging, Denny [facility]enport [facility] [place] [phone] 06/05/2024 8:45 AM EDT Imaging Maternal Medicine Imaging, Denny Davenport [address] [place] [phone] Scheduled Orders Name Type Priority Associated Diagnoses Orde r Schedule URINE PROTEIN, 24 HOUR Lab Routine Chronic hypertension in Gestational proteinuria in second trimester Expected: 02/08/2024 (Approximate), Expires: 02/07/2025 Health Maintenance Due Date Last Done Comments [...] encounter Visit Diagnoses Diagnosis Chronic hypertension in - Primary Benign essential hypertension complicating , childbirth, and the puerperium, unspecified as to episode of care Gestational proteinuria in second trimester Unspecified antepartum renal disease documented in this encounter
--- OUTSIDE RECORDS SUMMARY | 2024-06-09 07:50 | External Medical Summary ---
Author Name Unknown Address Unknown Organization K01:LABORATORY [facility] - [address] [place] [address] Laboratory Report Ordering Provider Test Date Status HAN DORANTES 01/11/2024 09:41:50 Final Observation Date Value Abnormality Reference (Units ) Status Glucose [Moles/volume] in Serum or Plasma --1 hour post 50 g glucose PO 01/11/2024 09:41:50 128 70-129 (mg/dL) Final Performing Location LABORATORY C - [address] [place] [address]
--- OUTSIDE RECORDS SUMMARY | 2024-06-09 07:50 | External Medical Summary ---
Author Name Unknown Address Unknown Organization K01:LABORATORY [facility] [place] [address] [place] [address] [address] [facility] [address] Laboratory Report Ordering Provider Test Date Status CRUZITO CASTRO 01/24/2024 09:00:17 Final Observation Date Value Abnormality Reference (Units) Status Streptococcus pyogenes DNA [Presence] in Throat by BRICE with probe detection 01/24/2024 09:00:17 Negative. No Group A Streptococcus detected by PCR (amplified probe). Negative Final This test was developed and its performance characteristics determined by [facility]. It has not been cleared or approved by the FDA. The laboratory is regulated under CLIA as qualified to perform high- complexity testing. This test is used for clinical purposes. It should not be regarded as investigational or for research. Performing Location LABORATORY [facility] [place] - [facility] [address] [facility] [address] [facility] [address]
--- OUTSIDE RECORDS SUMMARY | 2024-06-09 07:50 | External Medical Summary | Summary of Care ---
Author Name Unknown Organization [facility] Address [address] [facility] [place] [address] Phone [phone] Care Team Providers Care Advanced Quality Engineer Name Role Phone Unavailable Primary Care Provider Unavailabl e Reason for Visit * Reason Comments Return Visit Encounter Details Date Type Department Care Team (Late st Contact Info) Description 03/07/2024 8:30 AM EDT Office Visit Gynecology/Obstetri alethea Davenport [address] [place] [address] Leena Huizar CRNP [address] [place] [address] Nurse Issac Healthy Beginnings Return Denny [address] [place] [address] Supervision of high risk in second trimester*; [...] assessment of proteinuria (24-hour urine protein or gaseahl-iy-pwvfxipzqn ratio) and CBC, serum AST/ALT/creatinine. If patient [...] money to get more. Never true 02/08/2024 [place] Depression Scale Answer Date Recorded [place] Depression Scale Total 0 12/13/2023 The thought [...] BP stable, no symptoms of preE. Seeing [facility] for routine growth scans. Discussed Tdap recommendation. Labs ordered for next visit, return in 2 weeks. BETSEY Roland documented in this encounter Nursing Notes * Ximena Pathak RN - 03/07/2024 8:52 AM EDT Patient seen by [facility] Sprigger. documented in this encounter Miscellaneous Notes * Addendum Note - Mando David LPN - 03/07/2024 9:25 AM EDTAddended by: MANDO DAVID on: 03/07/2024 09:25 AM Modules accepted: Orders documented in this encounter Plan of Treatment Upcoming Encounters Date Type Department Care Team (Late st Contact Info) Description 03/11/2024 3:15 PM EDT Office Visit Head Refrigerating Engineer Obstetrics Maternal Medicine, [place] [address] [place] [address] Thu Toure, [address] [place] [address] 03/11/2024 3:15 PM EDT Imaging Radiology [facility] [address] [place] [address] 03/18/2024 9:50 AM EDT Laboratory Laboratory, [facility] [address] [facility] [place] [phone] [facility] [address] [place] [address] 03/18/2024 10:00 AM EDT Office Visit Gynecology/Obstetrics [facility] [address] [place] [address] Dina Carbajal CRNP [address] [place] [address] Nurse Issac Healthy Beginnings Return Denny [place] [address] 04/04/2024 3:15 PM EDT Office Visit Head Refrigerating Engineer Obstetrics Maternal Medicine, [place] [address] [place] [address] Jose Alejandro Quick, [address] [place] [address] 04/04/2024 3:15 PM EDT Imaging Radiology [facility] [place] [address] [place] [address] 05/08/2024 8:45 AM EDT Imaging Maternal Medicine Imaging, Denny Zimmermans [address] [place] [phone] 06/05/2024 8:45 AM EDT Imaging Maternal Medicine Imaging, Denny [address] [place] [phone] Scheduled Orders Name Type Priority Associated Diagnoses [...] second trimester Expected: 03/21/2024 (Approximate), Expires: 03/07/2025 URINALYSIS, POINT OF CARE (ENTER/EDIT) Point of Care Testing Routine Supervision of high risk in second trimester Ordered: 03/07/2024 Health Maintenance Due Date Last Done Comments [...]
--- OUTSIDE RECORDS SUMMARY | 2024-06-09 07:50 | External Medical Summary | Summary of Care ---
Author Name Unknown Organization [facility] Address [address] [facility] [place] [address] Phone [phone] Care Team Providers Care Raw Cheese Worker Name Role Phone Unavailable Primary Care Provider Unavailabl e Reason for Visit * Reason Onset Date Comments Appointment 11/23/2023 Encounter Details Date Type Department Care Team (Late st Contact Info) Description 11/23/2023 Telephone Gynecology/Obstetrics [facility] [address] [facility] [place] [address] Services, Scheduling [address] [place] [address] Appointment Allergies No known active allergiesdocumented as of this encounter (statuses as of 02/22/2024) Medications Medication Sig Dispensed Refills Start Date End Date Status Gummies 0.18-25 MG Oral Tablet Chewable Take by mouth. 0 Active Ferrous Gluconate 240 (27 Fe) MG Oral Tablet (Iron 27) Take by mouth. 0 Active documented as of this encounter (statuses as of 02/22/2024) Active Problems Problem Noted Date Diagnosed Date [...] assessment of proteinuria (24-hour urine protein or gakethe-ku-cigsnvxjfy ratio) and CBC, serum AST/ALT/creatinine. If patient [...] as of this encounter (statuses as of 02/22/2024) Resolved Problems Problem Noted Date Diagnosed Date Resolved Date with 15 completed weeks gestation 12/28/2023 02/07/2024 documented as of this encounter (statuses as of 02/22/2024) Social History Tobacco Use Types Packs/Day Years [...] money to get more. Never true 02/08/2024 [place] Depression Scale Answer Date Recorded [place] Depression Scale Total 0 12/13/2023 The thought [...] encounter Miscellaneous Notes * Telephone Encounter - Laurel Light MED ASSIST - 11/23/2023 9:01 AM EST Appts rescheduled, LMOM with date and time. MyG also sent with appt information * Telephone Encounter - Sara Diana OSA - 11/23/2023 8:15 AM EST Patient called in regarding her upcoming 11/28/23 apt. Pt states she has been sick and was looking to reschedule her new apt for the beginning of December due to missing work. Unable to reschedule apt at this time as there is no other timely manner apt's to offer at this time. Please contact patient at [phone] to assist. Thank you documented in this encounter Plan of Treatment Upcoming Encounters Date Type Department Care Team (Late st Contact Info) Description 03/07/2024 8:30 AM EDT Office Visit Gynecology/Obstetrics Bryce Davenport [address] [place] [address] BackerLeena CRNP [address] [place] [address] Nurse Issac Healthy [facility]nings Return Denny [address] [place] [address] 03/11/2024 3:15 PM EDT Office Visit Pets Salesperson Obstetrics Maternal Medicine, [place] [address] [place] [address] Thu Toure, [address] [place] [address] 03/11/2024 3:15 PM EDT Imaging Radiology [facility], [place] [address] [place] [address] 04/04/2024 3:15 PM EDT Office Visit Pets Salesperson Obstetrics Maternal Medicine, [place] [address] [place] [address] Jose Alejandro Quick, [address] [place] [address] 04/04/2024 3:15 PM EDT Imaging Radiology [facility], [place] [address] [place] [address] 05/08/2024 8:45 AM EDT Imaging Maternal Medicine Imaging, Denny Zimmermans [address] [facility] [place] [address] 06/05/2024 8:45 AM EDT Imaging Maternal Medicine Imaging, Denny Zimmermans [facility] [place] [address] Health Maintenance Due Date Last Done [...]
--- OUTSIDE RECORDS SUMMARY | 2024-06-09 07:50 | External Medical Summary | Summary of Care ---
Author Name Unknown Organization [facility] Address [address] [facility] [place] [address] Phone [phone] Care Team Providers Care Food And Drug Inspector Name Role Phone Unavailable Primary Care Provider Unavailabl e Encounter Details Date Type Department Care Team (Late st Contact Info) Description 02/15/2024 8:30 AM EDT Nurse Only Gynecology/Obstetrics [facility] [address] [place] [address] Gw, Nurse Obgyn Injection [address] [facility] [place] [address] Arrived Allergies No known active allergiesdocumented as [...] assessment of proteinuria (24-hour urine protein or cnssofw-to-piwvqshaud ratio) and CBC, serum AST/ALT/creatinine. If patient [...] money to get more. Never true 02/08/2024 [place] Depression Scale Answer Date Recorded [place] Depression Scale Total 0 12/13/2023 The thought [...] EDT Patient here for BP check per [facility] Not currently on medication BP good in office Cuff calibrated- patient's home automatic cuff is reading 138/95 today, so cuff is getting higher readings compared to in office manual BP of 130/82. Patient reports she is not able to provide a urine sample at time of visit. Reviewed with Leena Huizar in office. Advised that she stop at lab today to car pick up driver supplies to do 24 hour urine and made patient aware to call office with any readings >140/90 or any new/concerning symptoms, she verbalized understanding to all. documented in this encounter Plan of Treatment Upcoming Encounters Date Type Department Care Team (Late st Contact Info) Description 03/07/2024 8:30 AM EDT Office Visit Gynecology/Obstetrics Bryce Davenport [address] [place] [address] Backer, BETSEY Kc [address] [place] [address] Nurse Issac Healthy [facility] Return Denny [address] [place] [address] 03/11/2024 3:15 PM EDT Office Visit Rehabilitation Nurse Obstetrics Maternal Medicine, [address] [place] [address] TejalThu gamino, DO [address] [place] [address] 03/11/2024 3:15 PM EDT Imaging Radiology [facility] [address] [place] [address] 04/04/2024 3:15 PM EDT Office Visit Rehabilitation Nurse Obstetrics Maternal Medicine, [place] [address] [place] [address] Jose Alejandro Quick, [address] [place] [address] 04/04/2024 3:15 PM EDT Imaging Radiology [place] [address] [place] [address] 05/08/2024 8:45 AM EDT Imaging Maternal Medicine Imaging, [facility] [address] [facility] [place] [address] 06/05/2024 8:45 AM EDT Imaging Maternal Medicine Imaging, [facility] [address] [facility] [place] [address] Health Maintenance Due Date Last Done [...]
--- OUTSIDE RECORDS SUMMARY | 2024-06-09 07:50 | External Medical Summary | Summary of Care ---
Author Name Unknown Organization [facility] Address [address] [facility] [place] [address] Phone [phone] Care Team Providers Care Jtac Name Role Phone Unavailable Primary Care Provider Unavailabl e Encounter Details Date Type Department Care Team (Late st Contact Info) Description 02/08/2024 Population Health External Data Unspecified Department Allergies [...] assessment of proteinuria (24-hour urine protein or vlxzagp-ds-rqepuhjcfz ratio) and CBC, serum AST/ALT/creatinine. If patient [...] assessment of proteinuria (24-hour urine protein or pkwxgpd-dm-xotsjqisfz ratio) and CBC, serum AST/ALT/creatinine. If patient [...] money to get more. Never true 01/28/2024 [place] Depression Scale Answer Date Recorded [place] Depression Scale Total 0 12/13/2023 The thought [...] Visit Gynecology/Obstetrics Bryce Davenport [address] [place] [address] Leena Huizar CRNP [address] [place] [address] Nurse Issac [facility] Return Denny [address] [place] [address] Health Maintenance Due Date Last Done Comments [...]
--- OUTSIDE RECORDS SUMMARY | 2024-06-09 07:50 | External Medical Summary | Summary of Care ---
Author Name Unknown Organization [facility] Address [address] [place] [place] [address] Phone [phone] Care Team Providers Care Alarm Field Technician Name Role Phone Unavailable Primary Care Provider Unavailabl e Reason for Visit * Reason Comments Consultation Chronic hypertension and obesity * Evaluate & Treat - Unlimited Visits (Within 10 days (routine)) - Pending Review Specialty Diagnoses / Procedures Referred By Azam t Referred To Contact Obstetrics/Gynecology / Maternal Medicine Diagnoses Chronic hypertension in Dina Carbajal CRNP [address] [place] [address] Referral ID Status Reason Start Date Expiration Date Visits Requested Visits Authorized [id number] Pending Review Specialty Services Required 12/25/[phone] Encounter Details Date Type Department Care Team (Late st Contact Info) Description 12/28/2023 10:30 AM EDT Telemedicine Stock Preparation Operator Obstetrics Maternal Medicine, [place] [address] [place] [address] Sade Coles CRNP [address] [place], [place] [id number] Chronic hypertension in *; Obesity affecting , antepartum, unspecified obesity type; Supervision of high risk in second trimester; with 15 completed weeks gestation Allergies No known active allergiesdocumented as of this encounter (statuses as of 12/28/2023) Medications Medication Sig Dispensed Refills Start Date [...] as of this encounter (statuses as of 12/28/2023) Active Problems Problem Noted Date Diagnosed Date with 15 completed weeks gestation 12/07 Need for rubella vaccination 12/18/2023 Proteinuria 12/18/2023 Overview: Protein/creatinine ratio 348mg/g at NOB Supervision of high risk in [facility] 12/13/2023 Migraine with aura and with status migrainosus, not intractable 12/13/2023 Chronic hypertension in 12/13/2023 Overview: Images from the original note were not included. Chronic hypertension diagnosed in 2013 Was on antihypertensives in her early 20s, then discontinued Elevated BP 140/90 at NOB visit (13w) Currently not on medication Recommend starting daily low dose ASA BP Readings from Last 10 Encounters: 12/13/23 [...] assessment of proteinuria (24-hour urine protein or dhaczya-eu-rmrxpwdlzy ratio) and CBC, serum AST/ALT/creatinine. If patient [...] 6/7 weeks Obesity affecting , antepartum 12/13/19 24 Overview: Pre gravid BMI unknown BMI at [...] as of this encounter (statuses as of 12/28/2023) Social History Tobacco Use Types Packs/Day Years [...] money to get more. Never true 11/01/2023 [place] Depression Scale Answer Date Recorded [place] Depression Scale Total 0 12/13/2023 The thought [...] as of this encounter Progress Notes * Sade Coles CRNP - 12/28/2023 11:04 AM EDT Images from the original note were not included. MATERNAL MEDICINE CONSULT Selwyn Christian Consult date: 12/28/23 REFERRING PROVIDER: BETSEY [place] Patient location: HOME. I was in a hospital or clinic location. After connecting through [employer],patient was verified with two unique identifiers. Patient (or authorized legal sales representative printing) was then informed that this was a Telemedicine visit and being conducted confidentially over secure lines. Methods to assure confidentiality were taken. Patient acknowledged consent and understanding of pr ivacy and security of the Telemedicine visit. The patient agreed to participate. Selwyn Christian is a 28 year old with intrauterine at 15w2d (Estimated Date of Delivery: 06/18/24 by 13w1d ultrasound) who presents today for an MFM consult due to chronic hypertension and obesity. HPI/CURRENT : pre- BMI=class 2 obesity (Pregravid weight not on file; 5' 5"); FOB Gray; complicated by above. Genetic testing: Opted out OB Denny Davenport Problems (from 11/15/23 to present) Problem Noted Resolved Overview Addendum 12/18/2023 12:41 PM by Dian Carbajal CRNP Protein/creatinine ratio 348mg/g at NOB Supervision of high risk in second trimester 12/13/2023 by Dina Carbajal CRNP No Chronic hypertension in 12/13/2023 by Dina Carbajal CRNP No Overview Addendum 12/28/2023 10:59 AM by Sade Coles CRNP Chronic hypertension diagnosed in 2013 Was on antihypertensives in her early 20s, then discontinued Elevated BP 140/90 at NOB visit (13w) Currently not on medication Recommend starting daily low dose ASA BP Readings from Last 10 Encounters: 12/13/23 140/90 Baseline Preeclampsia Labs Lab Results Component Value Date/Time PLT 210 12/13/2023 09:54 AM CREATININE - [facility] 0.5 12/13/2023 09:54 AM AST - [facility] 30 12/13/2023 09:54 AM ALT - [facility] 36 (H) 12/13/2023 09:54 AM Protein/ Creatinine Ratio, Urine <150 mg/g 348 High 12/13/2023 12/13/2023 Protein, Random Urine mg/dL 16 12/13/2023 Creatinine, Random Urine mg/dL 46 Obesity affecting , antepartum 12/13/2023 by Dina Carbajal CRNP No Overview Addendum 12/26/2023 5:31 PM by Sade Coles CRNP Pre gravid BMI unknown BMI at first [...] - [facility] 36 (H) 12/13/2023 09:54 AM I have reviewed this patient's previous OB ultrasound reports, pertinent labwork and testing provided by her referring OB provider. Current Outpatient Medications Medication Sig Dispense Refill Aspirin 81 MG Oral Tablet Delayed Release (SB Low Dose ASA EC) Take 1 Tablet by mouth in the morning. B-12 1000-400 MCG Sublingual Tablet Sublingual Place under the tongue. Ferrous Gluconate 240 (27 Fe) MG Oral Tablet (Iron 27) Take by mouth. Magnesium 400 MG Oral Tablet Take by mouth. Gummies 0.18-25 MG Oral Tablet Chewable Take by mouth. No current facility-administered medications for this visit. Review of patient's allergies indicates: No Known Allergies OB History Para Term AB Living 1 0 0 0 0 0 SAB IAB Ectopic Multiple Live Births 0 0 0 0 0 # Outcome Date GA Lbr Tyrell/2nd Weight Sex Delivery Anes PTL Lv 1 Current Obstetric Comments 2024 FOB #1: Gray Nirmal, age 28, healthy, no other children Past Medical History: Diagnosis Date ASCUS of cervix with negative high risk HPV 12/2023 at new appointment Hypertension 2014 Migraines No past surgical history on file. Family History Problem Relation Age of Onset No Known Problems Mother Hypertension Father Breast Cancer Grandmother (Maternal) Heart disease Grandmother (Maternal) Heart disease Grandfather (Maternal) Breast Cancer Grandmother (Paternal) Heart disease Grandmother (Paternal) Diabetes Grandfather (Paternal) No Known Problems Sister (Half) No Known Problems Sister (Half) Social History Tobacco Use Smoking status: Never Smokeless tobacco: Never Vaping Use Vaping Use: Never used Substance Use Topics Alcohol use: Not Currently Drug use: Never REVIEW OF SYSTEMS: headaches: yes, takes Tylenol as needed nausea/vomiting: reports frequent nausea reports movement: no abdominal pain/tenderness/cramping/contractions: no vaginal bleeding: no vaginal leaking of fluid: no all other systems negative PHYSICAL EXAM: LMP 08/24/2023 General: Well appearing Psych: Alert to time, place, and person and Pleasant DISCUSSION/RECOMMENDATIONS: Problem List Items Addressed This Visit OB Denny Davenport Supervision of high risk in second trimester Chronic hypertension in Considerations: Women with chronic hypertension during are at significantly increased risk for morbidity. Signs and symptoms of superimposed pre-eclampsia were reviewed; instructed patient to contact primary OB care provider if these symptoms occur. Recommendations: Obtain baseline lab work ABIGAIL (if not already done) with assessment of proteinuria (24-hour urine protein or fsdmscs-vi-foiaoxmlgy ratio) and CBC, serum AST/ALT/creatinine. If patient has had hypertension for 10 years or more, obtain an EKG and eye exam (if not performed within the past year). Recommend initiation of aspirin (81mg) daily, from 13 weeks until delivery, to decrease the risk ofsuperimposed preeclampsia. Daily home blood pressure monitoring, especially in the second half of the . It may be useful to have the patient validate their home device with their primary OB care provider's office. Patients with BP less than 140/90 maintained with antihypertensives should continue medication during . Discontinuation of MARY inhibitors or angiotensin type II receptor antagonists under the guidance ofthe primary care physician prior to conception of or upon knowledge of . Initiate or adjust antihypertensive medication if BP is 140/90 or greater on at least two occasionsat least 4 hours apart and refer patient [...] 39 6/7 weeks Obesity affecting , antepartum CONSIDERATIONS: Discussed obstetrical risks associated with class [...] recommend weekly surveillance starting at 37 weeks. Other with 15 completed weeks gestation Follow up ultrasound with Maternal Medicine is scheduled on 02/01/[address] Quick for anatomy scan secondary to chronic hypertension and obesity. Patient is aware of upcoming [facility] appointment. Total time spent face to face in this visit was 30 minutes of which more than 50% was spent discussing and counseling the patient/caregiver(s) regarding chronic hypertension and obesity. Total time spent on this date of service including non face to face was 40 minutes in preparation, delivery, and documentation of care provided to Selwyn Christian, excluding time spent in performance of separately billable services. Details outlined above in impression and plan. BETSEY Logan 12/28/2023 11:09 AM documented in this encounter Miscellaneous Notes * Assessment & Plan Note - aSde Coles CRNP - 12/28/2023 10:36 AM EDT Associated Problem(s): Obesity affecting , antepartum CONSIDERATIONS: Discussed obstetrical risks associated with class [...] recommend weekly surveillance starting at 37 weeks. * Assessment & Plan Note - Sade Coles CRNP - 12/28/2023 10:36 AM EDT Associated Problem(s): Chronic hypertension in Considerations: Women with chronic hypertension during are at significantly increased risk for morbidity. Signs and symptoms of superimposed pre-eclampsia were reviewed; instructed patient to contact primary OB care provider if these symptoms occur. Recommendations: Obtain baseline lab work ABIGAIL (if not already done) with assessment of proteinuria (24-hour urine protein or badohds-ov-fayizadqij ratio) and CBC, serum AST/ALT/creatinine. If patient has had hypertension for 10 years or more, obtain an EKG and eye exam (if not performed within the past year). Recommend initiation of aspirin (81mg) daily, from 13 weeks until delivery, to decrease the risk ofsuperimposed preeclampsia. Daily home blood pressure monitoring, especially in the second half of the . It may be useful to have the patient validate their home device with their primary OB care provider's office. Patients with BP less than 140/90 maintained with antihypertensives should continue medication during . Discontinuation of MARY inhibitors or angiotensin type II receptor antagonists under the guidance ofthe primary care physician prior to conception of or upon knowledge of . Initiate or adjust antihypertensive medication if BP is 140/90 or greater on at least two occasionsat least 4 hours apart and refer patient [...] Between 37 0/7 and 39 6/7 weeks documented in this encounter Plan of Treatment Upcoming Encounters Date Type Department Care Team (Late st Contact Info) Description 01/11/2024 8:40 AM EDT [facility] [address] [place] [phone] Kristy Davenport [address] [place] [address] 01/11/2024 9:15 AM EDT Office Visit Gynecology/Obstetrics Bryce Davenport [address] [place] [place] [address] Nola Meyer PA-C [address] [place] [address] 02/01/2024 10:30 AM EDT Office Visit Stock Preparation Operator Obstetrics Maternal Medicine, [place] [address] [place] [address] Abdelrahman Jose [facility] [address] [place] [address] 02/01/2024 10:30 AM EDT Imaging [facility], [place] [address] [place], [place] [id number] Health Maintenance Due Date Last Done Comments Depression Screening 2006 DTaP,Tdap,and Td Vaccines (1 - Tdap) 2013 Hepatitis B (1 of 3 - 19+ 3- dose series) 2013 COVID-19 Vaccine ( - 2022-2 4 season) 2023 Influenza Vaccine (FLU shot) (#1) 2023 GFR 12/12/2024 12/13/2023 Pap Smear 12/12/2026 12/13/2023 [...] Obesity affecting , antepartum, unspecified obesity type Supervision of high risk in second trimester Unspecified high-risk with 15 completed weeks gestation documented in this encounter
--- OUTSIDE RECORDS SUMMARY | 2024-06-09 07:51 | External Medical Summary ---
Author Name Unknown Address Unknown Organization [id number][facility] [place] [address] [place] [address] Laboratory Report Ordering Provider Test Date Status HAN DORANTES 12/13/2023 09:41:25 Final Observation Date Value Abnormality Reference (Units) Status Bacteria identified in Specimen by Culture 12/13/2023 09:41:25 No significant growth Final Test: Culture, Urine, Quanti tative
Specimen Source: Urine, Clean Catch
Specimen Type: Urine
Specimen Date: 12/13/2023 9:41 AM
Result Date: 12/14/2023 11:35 AM
Result Status: Final result
Resulting Lab: [facility]
[address]
[place] [address]

CULTURE

No significant growth

null Performing Location [facility] [place] [address] [place] [address]
--- OUTSIDE RECORDS SUMMARY | 2024-06-09 07:51 | External Medical Summary ---
Author Name Unknown Address Unknown Organization K01:[facility]ORY [facility] - [address] [place] [address] Laboratory Report Ordering Provider Test Date Status HAN DORANTES 12/13/2023 09:54:38 Final Observation Date Value Abnormality Reference (Units ) Status Hep B surface Ag 12/13/2023 09:54:38 Negative Neg ative Final Performing Location LAB[facility]ATORY [facility] - [address] [place] [address]
--- OUTSIDE RECORDS SUMMARY | 2024-06-09 07:51 | External Medical Summary ---
Author Name Unknown Address Unknown Organization K01:LABORATORY [address] [place], [place] [address] Laboratory Report Ordering Provider Test Date Status HAN DORANTES 12/13/2023 09:41:00 Final Observation Date Value Abnormality Reference (Units ) Status Human papilloma virus E6+E7 mRNA [Presence] in Cervix by BRICE with probe detection 12/13/2023 09:41:00 Negative Not Applicable Final No high/intermediate-risk Hu man Papillomavirus (HPV E6/E7 messenger RNA) detected by nucleic acid amplification.

This assay looks for high/intermediate risk Human Papillomavirus (HPV E6/E7 messenger RNA) by nucleic acid amplification. This assay includes the qualitative detection of HPV types 16,18,31,33,35,39,45,51,52,56,58,59,66 and 68 from cervical specimens.
This assay has been FDA cleared for Thin prep collection vials.
This assay has not been approved for use as a primary screening test for HPV and should be tested in conjunction with a PAP screen.
If collected utilizing a Surepath vial, the collection and specimen preparation of this test was developed, and its performance characteristics determined by [facility]. It has not been cleared or approved by the U.S. Food and Drug Administration (FDA). The FDA has determined that such clearance or approval is not necessary.
This assay has been performed at [facility], [address] [facility], [place]. [address]. Performing Location LABORATORY [address] [place], [place] [address]
--- OUTSIDE RECORDS SUMMARY | 2024-06-09 07:51 | External Medical Summary ---
Author Name Unknown Address Unknown Organization K01:[facility] [place] - [address] [facility] [address] [place] [address] Laboratory Report Ordering Provider Test Date Status HAN DORANTES 12/13/2023 09:41:25 Final Observation Date Value Abnormality Reference (Units ) Status Chlamydia trachomatis rRNA [Presence] in Specimen by BRICE with probe detection 12/13/2023 09:41:25 Negative Negative Final No Chlamydia trachomatis det ected by managed care director-mediated nucleic acid amplification. Neisseria gonorrhoeae rRNA [ Presence] in Specimen by BRICE with probe detection 12/13/2023 09:41:25 Negative Negative Final No Neisseria gonorrhoeae det ected by managed care director-mediated nucleic acid amplification. Performing Location LABORATORY [facility] - [address] [place] [address]
--- OUTSIDE RECORDS SUMMARY | 2024-06-09 07:51 | External Medical Summary ---
Author Name Unknown Address Unknown Organization [id number]:[place] [facility] [place] [address] [place] [address] Laboratory Report Ordering Provider Test Date Status HAN DORANTES 12/13/2023 09:54:38 Final Observation Date Value Abnormality Reference (Units ) Status Uric Acid 12/13/2023 09:54:38 4.5 2.4-5.7 (m g/dL) Final Performing Location [facility]ATORY [facility] - [address] [place] [address]
--- OUTSIDE RECORDS SUMMARY | 2024-06-09 07:51 | External Medical Summary | Summary of Care ---
Author Name Unknown Organization [facility] Address [address] [address] Phone [phone] Care Team Providers Care Flat Drier Name Role Phone Unavailable Primary Care Provider Unavailabl e Reason for Visit * Reason Comments New Visit Encounter Details Date Type Department Care Team (Late st Contact Info) Description 12/13/2023 9:15 AM EST [facility] [address] [place] [address] Dina Carbajal CRNP [address] [place] [address] Encounter for supervision of normal first in second trimester*; Obesity, Class II, BMI 35-39.9; HTN in , chronic Allergies No known active allergiesdocumented as of this encounter (statuses as of 12/13/2023) Medications Medication Sig Dispensed Refills Start Date End Date Status Gummies 0.18-25 MG Oral Tablet Chewable Take by mouth. 0 Active Ferrous Gluconate 240 (27 Fe) MG Oral Tablet (Iron 27) Take by mouth. 0 Active documented as of this encounter (statuses as of 12/13/2023) Active Problems Problem Noted Date Diagnosed Date , normal first 12/13/2023 Migraine with aura and with status migrainosus, not intractable 12/13/2023 Chronic hypertension in 12/13/2023 Overview: Was on antihypertensives in her early 20s. Elevated BP 140/90 at NOB visit (13w) Baseline labs obtained Class II obesity 12/13/2023 Overview: Early glucola Serial growth NSTs weekly at 37w Estimated Date of Delivery Comme nts Yes 06/18/2024 Based on Ultraso und documented as of this encounter (statuses as of 12/13/2023) Social History Tobacco Use Types Packs/Day Years [...] money to get more. Never true 11/01/2023 [place] Depression Scale Answer Date Recorded [place] Depression Scale Total 0 12/13/2023 The thought [...] Sign Reading Time Taken Comments Blood Pressure 140/90 12/13/2023 8:49 AM EST Pulse - - Temperature - - Respiratory Rate - - Oxygen Saturation - - Inhaled Oxygen Concentration - - Weight 108.9 kg (240 lb) 12/13/2023 8:49 AM EST Height 165.1 cm (5' 5") 12/13/2023 8:49 AM EST Body Mass Index 39.94 12/13/2023 8:49 AM EST documented in this encounter Progress Notes * Dina Carbajal CRNP - 12/13/2023 9:47 AM EST HPI: Selwyn Christian is a 28 year old year old female here for NOB visit. 13w1d . EDC 06/18/24. Early dating u/s confirming single viable IUP. Reviewed PMH, PSH, social hx, and family hx with pt and FOB. Reports dx of HTN in early 20s. Was on meds for a short time. States BP "always elevated at doctor's office". History of migraines. Discussed genetic screening tests with pt. She doesn't have insurance right now, so declines at this time. She is taking PNV. Body mass index is 39.94 kg/m. Past Medical History: Diagnosis Date Hypertension Migraines No past surgical history on file. Current outpatient prescriptions Current Outpatient Medications Medication Sig Dispense Refill Gummies 0.18-25 MG Oral Tablet Chewable Take by mouth. Ferrous Gluconate 240 (27 Fe) MG Oral Tablet (Iron 27) Take by mouth. No current facility-administered medications for this visit. 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 Tobacco Use Smoking status: Never Smokeless tobacco: Never Vaping Use Vaping Use: Never used Substance and Sexual Activity Alcohol use: Not Currently Drug use: Never Sexual activity: Yes Partners: Male Other Topics Concern Not on file Social History Narrative Not on file Social Determinants of Health Financial Resource Strain: Not on file Food Insecurity: No Food Insecurity (11/01/2023) Hunger Vital Sign Worried About Running Out of Food in the Last Year: Never true Ran Out of Food in the Last Year: Never true Transportation Needs: Not on file Physical Activity: Not on file Stress: Not on file Social Connections: Not on file Intimate Partner Violence: Not on file Housing Stability: Not on file Family History Family History Problem Relation Age of Onset Breast Cancer Grandmother (Maternal) Heart disease Grandmother (Maternal) Heart disease Grandfather (Maternal) Breast Cancer Grandmother (Paternal) Heart disease Grandmother (Paternal) Diabetes Grandfather (Paternal) Obstetric History OB History Para Term AB Living 1 SAB IAB Ectopic Multiple Live Births # Outcome Date GA Lbr Tyrell/2nd Weight Sex Delivery Anes PTL Lv 1 Current PHYSICAL EXAM: See physical IMPRESSION: Encounter for supervision of normal first in second trimester (Primary) - CULTURE, URINE, QUANTITATIVE - TYPE AND SCREEN; Future; Expected date: 12/13/2023 - RUBELLA IGG ANTIBODY; Future; Expected date: 12/13/2023 - HEPATITIS B SURFACE ANTIGEN; Future; Expected date: 12/13/2023 - HIV ANTIGEN & ANTIBODY SCREEN W/ CONFIRMATION; Future; Expected date: 12/13/2023 - CHLAMYDIA TRACHOMATIS AND NEISSERIA GONORRHOEAE, AMPLIFIED PROBE - CBC WITH WBC DIFFERENTIAL AND ANEMIA REFLEX WORKUP; Future; Expected date: 12/13/2023 - HEPATITIS C ANTIBODY SCREEN WITH PROGRESSION TO HEPATITIS C RNA QUANTITATIVE; Future; Expected date: 12/13/2023 - SYPHILIS ANTIBODY SCREEN WITH REFLEX TO RPR; Future; Expected date: 12/13/2023 - 50-G GESTATIONAL GLUCOSE, 1 HOUR; Future; Expected date: 12/13/2023 - CONTACT CENTER PROFESSIONAL PAP SCREEN; Future; Expected date: 12/13/2023 - CONTACT CENTER PROFESSIONAL PAP SCREEN Obesity, Class II, BMI 35-39.9 - 50-G GESTATIONAL GLUCOSE, 1 HOUR; Future; Expected date: 12/13/2023 HTN in , chronic - BUN; Future; Expected date: 12/14/2023 - URIC ACID; Future; Expected date: 12/14/2023 - HEPATIC FUNCTION PANEL; Future; Expected date: 12/14/2023 - CREATININE; Future; Expected date: 12/14/2023 - PROTEIN/ CREATININE RATIO, URINE Follow Up: Return in about 4 weeks (around 01/10/2024) for charlene. | For: charlene | Check-out note: Lab today Glucola with next visit BETSEY [place] * Patsy David LPN - 12/13/2023 9:08 AM EST NOB visit Denies vaginal bleeding Having nausea no vomiting SOLORIO- denies vision changes Planning delivery at [facility] Thinking about breast feeding documented in this encounter Plan of Treatment Upcoming Encounters Date Type Department Care Team (Polly Contact Info) Description 01/11/2024 8:40 AM EDT Laboratory Laboratory, [facility] [address] [place] [phone] Kristy Davenport [facility] [address] [place] [address] 01/11/2024 9:15 AM EDT Office Visit Gynecology/Obstetrics Bryce Davenport [address] [place] [address] Nola Meyer PA-C [address] [place] [address] Pending Results Name Type Priority Associated Diagnoses Date /Time CULTURE, URINE, QUANTITATIVE Lab Routine Encounter for supervision of normal first in second trimester 12/13/2023 9:41 AM EST TYPE AND SCREEN Lab Routine Encounter for supervision of normal first in second trimester 12/13/2023 9:54 AM EST RUBELLA IGG ANTIBODY Lab Routine Encounter for supervision of normal first in second trimester 12/13/2023 9:54 AM EST HEPATITIS B SURFACE ANTIGEN Lab Routine Encounter for supervision of normal first in second trimester 12/13/2023 9:54 AM EST HIV ANTIGEN & ANTIBODY SCREEN W/ CONFIRMATION Lab Routine Encounter for supervision of normal first in second trimester 12/13/2023 9:54 AM EST CHLAMYDIA TRACHOMATIS AND NEISSERIA GONORRHOEAE, AMPLIFIED PROBE Lab Routine Encounter for supervision of normal first in second trimester 12/13/2023 9:41 AM EST CBC WITH WBC DIFFERENTIAL AND ANEMIA REFLEX WORKUP Lab Routine Encounter for supervision of normal first in second trimester 12/13/2023 9:54 AM EST HEPATITIS C ANTIBODY SCREEN WITH PROGRESSION TO HEPATITIS C RNA QUANTITATIVE Lab Routine Encounter for supervision of normal first in second trimester 12/13/2023 9:54 AM EST SYPHILIS ANTIBODY SCREEN WITH REFLEX TO RPR Lab Routine Encounter for supervision of normal first in second trimester 12/13/2023 9:54 AM EST CONTACT CENTER PROFESSIONAL PAP SCREEN Pathology Routine Encounter for supervision of normal first in second trimester 12/13/2023 9:41 AM EST BUN Lab Routine HTN in , chronic 12/13/2023 9:54 AM EST URIC ACID Lab Routine HTN in , chronic 12/13/2023 9:54 AM EST HEPATIC FUNCTION PANEL Lab Routine HTN in , chronic 12/13/2023 9:54 AM EST CREATININE Lab Routine HTN in , chronic 12/13/2023 9:54 AM EST PROTEIN/ CREATININE RATIO, URINE Lab Routine HTN in , chronic 12/13/2023 9:41 AM EST Scheduled Orders Name Type Priority Associated Diagnoses Orde r Schedule TYPE AND SCREEN Lab Routine Encounter for supervision of normal first in second trimester Expected: 12/13/2023 (Approximate), Expires: 01/12/2025 RUBELLA IGG ANTIBODY Lab Routine Encounter for supervision of normal first in second trimester Expected: 12/13/2023 (Approximate), Expires: 12/12/2024 HEPATITIS B SURFACE ANTIGEN Lab Routine Encounter for supervision of normal first in second trimester Expected: 12/13/2023 (Approximate), Expires: 12/12/2024 HIV ANTIGEN & ANTIBODY SCREEN W/ CONFIRMATION Lab Routine Encounter for supervision of normal first in second trimester Expected: 12/13/2023, Expires: 12/12/2024 CBC WITH WBC DIFFERENTIAL AND ANEMIA REFLEX WORKUP Lab Routine Encounter for supervision of normal first in second trimester Expected: 12/13/2023, Expires: 12/12/2024 HEPATITIS C ANTIBODY SCREEN WITH PROGRESSION TO HEPATITIS C RNA QUANTITATIVE Lab Routine Encounter for supervision of normal first in second trimester Expected: 12/13/2023, Expires: 12/12/2024 SYPHILIS ANTIBODY SCREEN WITH REFLEX TO RPR Lab Routine Encounter for supervision of normal first in second trimester Expected: 12/13/2023, Expires: 12/12/2024 50-G GESTATIONAL GLUCOSE, 1 HOUR Lab Routine Encounter for supervision of normal first in second trimester Obesity, Class II, BMI 35-39.9 Expected: 12/13/2023, Expires: 12/12/2024 CONTACT CENTER PROFESSIONAL PAP SCREEN Pathology Routine Encounter for supervision of normal first in second trimester Expected: 12/13/2023, Expires: 01/12/2025 BUN Lab Routine HTN in , chronic Expected: 12/14/2023 (Approximate), Expires: 12/12/2024 URIC ACID Lab Routine HTN in , chronic Expected: 12/14/2023 (Approximate), Expires: 12/12/2024 HEPATIC FUNCTION PANEL Lab Routine HTN in , chronic Expected: 12/14/2023 (Approximate), Expires: 12/12/2024 CREATININE Lab Routine HTN in , chronic Expected: 12/14/2023 (Approximate), Expires: 12/12/2024 Health Maintenance Due Date Last Done Comments GFR 1994 Depression Screening 2006 HIV Screening 2009 Hepatitis C Screening 2012 DTaP,Tdap,and Td Vaccines (1 - Tdap) 2013 Hepatitis B (1 of 3 - 19+ 3- dose series) 2013 Pap Smear 2015 COVID-19 Vaccine (2022-2 4 season) 2023 Influenza Vaccine (FLU shot) (#1) 2023 GARDASIL-HPV IMMUNIZATION SERIES Aged Out No longer [...] for supervision of normal first in second trimester- Primary Supervision of normal first Obesity, Class II, BMI 35-39.9 Morbid obesity HTN in , chronic Benign essential hypertension complicating , childbirth, and the puerperium, unspecified as to episode of care documented in this encounter
--- OUTSIDE RECORDS SUMMARY | 2024-06-09 07:51 | External Medical Summary ---
Author Name Unknown Address Unknown Organization [id number]:[place] [facility] [place] [facility] [address] [place] [address] Laboratory Report Ordering Provider Test Date Status HAN DORANTES 12/13/2023 09:54:38 Final Observation Date Value Abnormality Reference (Units ) Status HIV 1+2 Ab+HIV1 p24 Ag [Presence] in Serum or Plasma by Immunoassay 12/13/2023 09:54:38 Negative Negative Final Negative HIV-1/2 antigen and antibody screening tset results usually indicate the absence of HIV-1 and HIV-2 infection. However, such negative results do not rule-out acute HIV infection. If acute HIV-1 infection is highly suspected, it is recommended that a specimen be submitted for detection of HIV-1 RNA. Performing Location [place] [facility] [place] [address] [place] [address]
--- OUTSIDE RECORDS SUMMARY | 2024-06-09 07:51 | External Medical Summary ---
Author Name Unknown Address Unknown Organization [id number][facility] [address] [place] [address] Laboratory Report Ordering Provider Test Date Status JAYNAHAN 12/13/2023 09:54:38 Final Observation Date Value Abnormality Reference (Units ) Status Creatinine 12/13/2023 09:54:38 0.5 0.5-1.0 (mg/dL) Final Glomerular filtration rate/1.73 sq M.predicted [Volume Rate/Area] in Serum, Plasma or Blood by Creatinine-based formula (CKD-EPI) 12/13/2023 09:54:38 >90 >=60 (mL/min) Final eGFR is calculated based on the CKD-EPI 2020 equation Performing Location [facility] - [address] [place] [address]
--- OUTSIDE RECORDS SUMMARY | 2024-06-09 07:51 | External Medical Summary ---
Author Name Unknown Address Unknown Organization [id number]:[facility] [place] [facility] [address] [place] [address] Laboratory Report Ordering Provider Test Date Status HAN DORANTES 12/13/2023 09:54:38 Final Observation Date Value Abnormality Reference (Units ) Status SYNC LEUKOCYTES IN BLOOD BY AUTOMATED COUNT 12/13/2023 09:54:38 7.67 4.00-10.80 (K/uL) Final Segs 12/13/2023 09:54:38 68.6 40.0-75.0 (%) Final Lymphs % 12/13/2023 09:54:38 20.2 18.0-42.0 (%) Final Monos 12/13/2023 09:54:38 8.2 1.0-11.0 (%) Final Eosinophils 12/13/2023 09:54:38 1.7 0.0-6.0 (%) Final Basos 12/13/2023 09:54:38 0.3 0.0-2.0 (%) Final Immature Granulocyte, Percent 12/13/2023 09:54:38 1.0 0.0-2.0 (%) Final Absolute Segs 12/13/2023 09:54:38 5.26 1.80-7.70 (K/uL) Final Lymphs, absolute 12/13/2023 09:54:38 1.55 1.00-4.80 (K/ul) Final Monos, Abs 12/13/2023 09:54:38 0.63 0.00-1.10 (K/uL) Final Eos, Abs 12/13/2023 09:54:38 0.13 0.00-0.70 (K/uL) Final Basos, Abs 12/13/2023 09:54:38 0.02 0.00-0.20 (K/uL) Final Immature Granulocytes, Number 12/13/2023 09:54:38 0.08 0.00-0.20 (K/uL) Final Performing Location LAB[facility]ORY [facility] [place] - [facility] [place] [address]
--- OUTSIDE RECORDS SUMMARY | 2024-06-09 07:51 | External Medical Summary | Summary of Care ---
Author Name Unknown Organization [facility] Address [address] [place] [address] Phone [phone] Care Team Providers Care Resident Care Assistant Name Role Phone Unavailable Primary Care Provider Unavailabl e Reason for Visit * Reason Comments Outpatient Testing Encounter Details Date Type Department Care Team (Late st Contact Info) Description 12/13/2023 9:50 AM EST Laboratory Laboratory, [facility] [address] [facility] [address] [phone] [facility] [address] [facility] [address] Encounter for supervision of normal first in second trimester; HTN in , chronic Allergies No known [...] money to get more. Never true 11/01/2023 Vian Depression Scale Answer Date Recorded Vian Depression Scale Total 0 12/13/2023 The thought [...] Description 01/11/2024 8:40 AM EDT [facility] [address] [place] [phone] Kristy Davenport [address] [place] [address] 01/11/2024 9:15 AM EDT Office Visit Gynecology/Obstetrics Bryce Davenport [address] [place] [address] Nola Meyer PA-C [address] [place] [address] Pending Results Name Type Priority Associated Diagnoses Date /Time TYPE AND SCREEN Lab Routine Encounter for [...] in second trimester 12/13/2023 9:54 AM EST CBC WITH WBC DIFFERENTIAL AND [...] in second trimester 12/13/2023 9:54 AM EST BUN Lab Routine HTN in , chronic 12/13/2023 9:54 AM EST URIC ACID Lab Routine HTN in , chronic 12/13/2023 9:54 AM EST HEPATIC FUNCTION PANEL Lab Routine HTN in , chronic 12/13/2023 9:54 AM EST CREATININE Lab Routine HTN in , chronic 12/13/2023 9:54 AM EST ANEMIA CBC Lab Routine Encounter for supervision of normal first in second trimester 12/13/2023 9:54 AM EST DIFFERENTIAL, AUTOMATED Lab Routine Encounter for supervision of normal first in second trimester 12/13/2023 9:54 AM EST ANEMIA REFLEX CHEMISTRY HOLD Lab Routine Encounter for supervision of normal first in second trimester 12/13/2023 9:54 AM EST HEPATITIS C ANTIBODY Lab Routine Encounter for supervision of normal first in second trimester 12/13/2023 9:54 AM EST HEPATITIS C RNA ADD ON Lab Routine Encounter for supervision of normal first in second trimester 12/13/2023 9:54 AM EST SYPHILIS ANTIBODY SCREEN Lab Routine Encounter for supervision of normal first in second trimester 12/13/2023 9:54 AM EST Health Maintenance Due Date Last Done Comments [...] in second trimester Supervision of normal first HTN in , chronic Benign essential hypertension complicating , childbirth, and the puerperium, unspecified as to episode of care documented in this encounter
--- OUTSIDE RECORDS SUMMARY | 2024-06-09 07:51 | External Medical Summary ---
Author Name Unknown Address Unknown Organization [id number]:LABORATORY [facility] [place] - [address] [place] [address] Laboratory Report Ordering Provider Test Date Status HAN DORANTES 12/13/2023 09:41:25 Final Normal: <150 mg/ g creatinine
High: 150-500 mg/g creatinine
Very High: >500 mg/g creatinine
Nephrotic: >3000 mg/g creatinine Observation Date Value Abnormality Reference (Units ) Status Protein/Creatinine [Ratio] in Urine 12/13/2023 09:41:25 348 Above high normal <150 (mg/g ) Final Protein, Urine 12/13/2023 09:41:25 16 (mg/dL) Final Creatinine, Urine 12/13/2023 09:41:25 46 (mg/dL) Final Performing Location LABORATORY [facility] [place] - [address] [place] [address]
--- OUTSIDE RECORDS SUMMARY | 2024-06-09 07:51 | External Medical Summary ---
Author Name Unknown Address Unknown Organization [id number]:[place] [facility] [place] [address] [place] [address] Laboratory Report Ordering Provider Test Date Status HAN DORANTES 12/13/2023 09:54:38 Final Observation Date Value Abnormality Reference (Units ) Status Hep C Ab 12/13/2023 09:54:38 Negative Negative Final Further HCV quantitative brendan ting not performed per protocol. Performing Location [facility] - [address] [place] [address]
--- OUTSIDE RECORDS SUMMARY | 2024-06-09 07:51 | External Medical Summary ---
Author Name Unknown Address Unknown Organization K0G:LABORATORY [facility] - [address] [place] [address] Laboratory Report Ordering Provider Test Date Status HAN DORANTES 12/13/2023 09:54:38 Final Observation Date Value Abnormality Reference (Units ) Status Albumin 12/13/2023 09:54:38 4.3 3.8-5.0 (g/dL) Final AST (Aspartate aminotransferase) 12/13/2023 09:54:38 30 10-35 (U/L) Final Alk Phos 12/13/2023 09:54:38 68 35-130 (U/L) Final ALT (Alanine aminotransferase) 12/13/2023 09:54:38 36 Above high normal 10-35 (U/L) Final Bilirubin, Total 12/13/2023 09:54:38 0.4 <=1.2 (mg/dL) Final Bilirubin, Direct 12/13/2023 09:54:38 <0.2 0.0-0.3 (mg/dL) Final Protein 12/13/2023 09:54:38 8.3 6.0-8.3 (g/dL) Final Performing Location LABORATORY [facility] 0 - [address] [place] [address]
--- OUTSIDE RECORDS SUMMARY | 2024-06-09 07:51 | External Medical Summary ---
Author Name Unknown Address Unknown Organization K01:LABORATORY C - [address] [place] [address] Laboratory Report Ordering Provider Test Date Status RIRI DORANTESTOBY 12/13/2023 09:54:38 Final Observation Date Value Abnormality Reference (Units ) Status Rubella virus IgG Ab [Presence] in Serum 12/13/2023 09:54:38 Negative Negative Final A negative result indicates that immunity to rubella virus has not been acquired. Performing Location [facility] - [address] [place] [address]
--- OUTSIDE RECORDS SUMMARY | 2024-06-09 07:51 | External Medical Summary | Summary of Care ---
Author Name Unknown Organization [facility] Address [address] [facility] [place] [address] Phone [phone] Care Team Providers Care Station Cleaning Porter Name Role Phone Unavailable Primary Care Provider Unavailabl e Reason for Referral * Evaluate & Treat - Unlimited Visits (Within 10 days (routine)) - Pending Review Specialty Diagnoses / Procedures Referred By Azam ryan Referred To Contact Obstetrics/Gynecology / Maternal Medicine Diagnoses Chronic hypertension in Jayna Carbajal CRNP [address] [place] [address] Referral ID Status Reason Start Date Expiration Date Visits Requested Visits Authorized [id number] Pending Review Specialty Services Required 12/25/2023 999 999 Question Answer Referral Priority Within 10 days (routine) Has the patient had a viability scan? Yes Date performed 12/13/2023 Location performed Radiology Reason for referral Hypertension Hypertension type Chronic Where should this appointment be scheduled? [facility] Comments /Para: LMP: Patient's last menstrual period was 08/24/2023. Patient is . BRICE: 06/18/2024, by Ultrasound Pre-Gravid BMI: Could not be calculated Chronic HTN, not on meds at initial OB visit but elevated BP. Proteinuria at same visit Encounter Details Date Type Department Care Team (Late st Contact Info) Description 12/18/2023 Telephone Gynecology/Obstetrics [facility] [address] [place] [address] Jayna Carbajal CRNP [address] [place] [address] Allergies No known active allergiesdocumented as of this encounter (statuses as of 12/25/2023) Medications Medication Sig Dispensed Refills Start Date End Date Status Gummies 0.18-25 MG Oral Tablet Chewable Take by mouth. 0 Active Ferrous Gluconate 240 (27 Fe) MG Oral Tablet (Iron 27) Take by mouth. 0 Active documented as of this encounter (statuses as of 12/25/2023) Active Problems Problem Noted Date Diagnosed Date Need for rubella vaccination 12/18/2023 Proteinuria 12/18/2023 Overview: Protein/creatinine ratio 348mg/g at [facility] , normal first 12/13/2023 Migraine with aura [...] as of this encounter (statuses as of 12/25/2023) Social History Tobacco Use Types Packs/Day Years [...] money to get more. Never true 11/01/2023 Amanda Depression Scale Answer Date Recorded Amanda Depression Scale Total 0 12/13/2023 The thought [...] as of this encounter Miscellaneous Notes * Addendum Note - Jayna Carbajal CRNP - 12/25/2023 9:36 AM EDTAddended by: JAYNA CARBAJAL on: 12/25/2023 09:36 AM Modules accepted: Orders * Telephone Encounter - Jayna Carbajal CRNP - 12/25/2023 9:35 AM EDT Referral placed. * Telephone Encounter - Elida Gaxiola RN - 12/24/2023 3:59 PM EDT Patient returned call and made aware. She verbalized understanding to all. Agreeable to M referral . * Telephone Encounter - Robyn David LPN - 12/24/2023 3:34 PM EDT Myg sent * Telephone Encounter - Ximena Pathak RN - 12/18/2023 1:13 PM EDT Attempted to call but NA. Unable to leave a message. * Telephone Encounter - Jayna Carbajal CRNP - 12/18/2023 12:43 PM EDT Please notify pt of the following results from [facility] labs: -her protein/creatinine ratio was done as a baseline, but is high. Her BP was high at that visit, and toward the end of the visit she casually mentioned she used to be on BP meds a number of years ago. Would recommend MFM referral so we can formulate the best plan for her and her baby. -she is not immune to rubella, would recommend vaccination through PCP office after delivery. If agreeable to MFM, please route back so I can place the order. documented in this encounter Plan of Treatment Upcoming Encounters Date Type Department Care Team (Late st Contact Info) Description 01/11/2024 8:40 AM EDT Laboratory Laboratory, [facility] [address] [place] [phone] [facility] [address] [address] 01/11/2024 9:15 AM EDT Office Visit Gynecology/Obstetrics [facility] [address] [address] Nola Meyer PA-C [address] [address] Scheduled Orders Name Type Priority Associated Diagnoses Orde r Schedule MFM US MATERNAL 1ST FETUS Medical Imaging Routine Chronic hypertension in Expected: 12/25/2023, Expires: 01/24/2025 Scheduled Referrals Name Type Priority Associated Diagnoses Orde r Schedule MATERNAL MEDICINE REFERRAL OP Referral Within 10 days (routine) Chronic hypertension in Ordered: 12/25/2023 Health Maintenance Due Date Last Done Comments Depression Screening 2006 DTaP,Tdap,and Td Vaccines (1 - Tdap) 2013 Hepatitis B (1 of 3 - 19+ 3- dose series) 2013 Pap Smear 2015 COVID-19 Vaccine ( - 2022-2 4 season) 2023 Influenza Vaccine (FLU shot) (#1) 2023 GFR 12/12/2024 12/13/2023 GARDASIL-HPV IMMUNIZATION SERIES Aged Out No [...]
--- OUTSIDE RECORDS SUMMARY | 2024-06-09 07:51 | External Medical Summary | Summary of Care ---
Author Name Unknown Organization [facility] Address [address] [facility] [place] [address] Phone [phone] Care Team Providers Care Handle Bar Assembler Name Role Phone Unavailable Primary Care Provider Unavailabl e Encounter Details Date Type Department Care Team (Late st Contact Info) Description 12/18/2023 Telephone Gynecology/Obstetrics [facility] [address] [place] [address] Dina Carbajal CRNP [address] [place] [address] Allergies No known active allergiesdocumented as of this encounter (statuses as of 12/24/2023) Medications Medication Sig Dispensed Refills Start Date End Date Status Gummies 0.18-25 MG Oral Tablet Chewable Take by mouth. 0 Active Ferrous Gluconate 240 (27 Fe) MG Oral Tablet (Iron 27) Take by mouth. 0 Active documented as of this encounter (statuses as of 12/24/2023) Active Problems Problem Noted Date Diagnosed Date [...] as of this encounter (statuses as of 12/24/2023) Social History Tobacco Use Types Packs/Day Years [...] money to get more. Never true 11/01/2023 Hartford Depression Scale Answer Date Recorded Hartford Depression Scale Total 0 12/13/2023 The thought [...] leave a message. * Telephone Encounter - Dina Carbajal CRNP - 12/18/2023 12:43 PM EDT [...] 01/11/2024 8:40 AM EDT [facility] [address] [phone] [facility] [address] [address] 01/11/2024 9:15 AM EDT Office Visit Gynecology/Obstetrics [facility] [address] [address] Nola Meyer PA-C [address] [place] [address] Health Maintenance Due Date Last Done Comments [...]
--- OUTSIDE RECORDS SUMMARY | 2024-06-09 07:51 | External Medical Summary ---
Author Name Unknown Address Unknown Organization K01:[facility] [place] [address] [facility] [place] [address] Laboratory Report Ordering Provider Test Date Status HAN DORANTES 12/13/2023 09:54:38 Final Observation Date Value Abnormality Reference (Units ) Status WBC, Total 12/13/2023 09:54:38 7.67 4.00-10.8 0 (K/uL) Final RBC 12/13/2023 09:54:38 4.57 3.85-5.15 (M/uL) Final Hemoglobin 12/13/2023 09:54:38 12.7 12.0-15.3 (g/dL) Final Anemia reflex testing trigge rs on a HGB < 12.0 for Females and HGB < 13.0 for Males in accordance with the WHO Anemia Guidelines
Anemia reflex testing triggers on a HGB < 12.0 for Females and HGB < 13.0 for Males in accordance with the WHO Anemia Guidelines HCT 12/13/2023 09:54:38 37.5 36.0-45.2 (%) Final MCV 12/13/2023 09:54:38 82.1 81.5-97.5 (fL) Final MCH 12/13/2023 09:54:38 27.8 27.0-34.0 (pg) Final MCHC 12/13/2023 09:54:38 33.9 32.0-36.0 (g/dL) Final RDW 12/13/2023 09:54:38 13.2 11.5-15.5 (%) Final Platelets 12/13/2023 09:54:38 210 140-400 (K /uL) Final MPV 12/13/2023 09:54:38 10.3 6.6-11.1 ( fL) Final Nucleated erythrocytes/100 leukocytes [Ratio] in Blood by Automated count 12/13/2023 09:54:38 0 <=0 (/100 WBCs) Fi [facility] Performing Location [facility] [place] - [address] [facility] [id number]
[2024-06-09] MEDS ORDERED: LIDOCAINE 1% LOCAL 20 ML VIAL INFIL PRN (08:47)
[2024-06-09] MEDS ORDERED: ACETAMINOPHEN 325 MG TAB PO PRN (08:47)
[2024-06-09] MEDS ORDERED: PENICILLIN GK 6 MU in DEXTROSE 5% 250 ML IV STA (09:07)
[2024-06-09 09:17] LABS: Hematocrit (blood only) 33.2 % (37.0-47.0); Hemoglobin 11.1 g/dl (12.0-16.0); Mean Corpuscular Hemoglobin 27.6 pg (25.0-34.0); Mean Corpuscular Hgb Conc 33.4 g/dL (32.0-36.0); Mean Corpuscular Volume 82.6 fL (80.0-100.0); Mean Platelet Volume 10.2 fL (9.4-12.4); Platelet Count 201 K/uL (130-400); RDW Coefficient of Variation 13.9 % (11.5-14.5); RDW Standard Deviation 41.4 fL (36.4-46.3); Red Blood Count 4.02 M/uL (4.20-5.40); White Blood Count 8.83 K/ul (4.8-10.8)
[2024-06-09] MEDS: LACTATED RINGER'S 1,000 ML IV PRN (09:23)
--- NOTE | 2024-06-09 09:25 | History & Physical Report ---
Date of Service June 09, 2024 Assessment & Plan (1) Chronic hypertension during , antepartum: Plan: 29 yo at 38.5 wks scheduled IOP for CHT during , on Labetalol VSS Afebrile FHR reassuring GBS positive Cervix unfavorable Plan to admit, monitor, labs, cervical ripening with Cervidil, (2) Polyhydramnios: Plan: LISY 27.1 today (3) Obesity affecting : (4) Migraines: (5) GBS (group B Streptococcus carrier), +RV culture, currently : Admission and Anticipated Discharge Date Admission Date: June 09, 2024 History of Present Illness Primary Care Provider: NO PCP Patient is a 29-year-old G1, P0 at 38 weeks and 5 days of gestation who was scheduled for induction of labor at term for history of chronic hypertension during this . She has been on labetalol 100 mg twice a day and her blood pressures have been stable. She has no complaints today. She denies headaches, change in her vision, nausea vomiting, epigastric or right upper quadrant pain. She has a history of chronic migraines but she does not have today. She denies contractions, leakage of fluid, vaginal bleeding. She reports good movements. Problems of this , 1. Obesity during , growth ultrasound stable and within normal limits, found to have polyhydramnios and repeated glucose screening test and it was negative, today's LISY is 27.1 cm per bedside ultrasound. 2. GBS positive, 3. Chronic hypertension during as above, 4. Migraines during Allergies Allergy/AdvReac Type Severity Reaction Status Date / Time No Known Drug Allergies Allergy Unknown Verified 06/09/24 08:08 Home Medications Medication Instructions Recorded Confirmed Type aspirin 81 mg chewable tablet 81 mg PO DAILY 06/09/24 06/09/24 History coenzyme Q10 100 mg capsule 200 mg PO DAILY 06/09/24 06/09/24 History (CoQ-10) cyanocobalamin (vitamin B-12) 500 400 mcg PO DAILY 06/09/24 06/09/24 History mcg tablet (Vitamin B-12) ferrous sulfate 28 mg iron tablet 65 mg PO 2XD 06/09/24 06/09/24 History labetalol 100 mg tablet 100 mg PO BID 06/09/24 06/09/24 History magnesium 500 mg tablet 400 mg PO DAILY 06/09/24 06/09/24 History [id number]-FA 1 mg 1 tab PO 1XD 06/09/24 06/09/24 History tablet Patient History Medical History Polyhydramnios Obesity affecting Migraines Hypertension Social History Smoking Status: Never smoker Second Hand Exposure: Yes; Do You Dip or Chew Tobacco: No; Hx Alcohol Use: No Hx Substance Use: No Preferred Language: Luxembourger Communication Ability: Effective Aligner Barrel And Receiver Required: No Beliefs That Will Affect Care: None marital status: Single Current Living Situation: Parent Current Living Situation Comment: Pt lives with her parents and 5 dogs Other Information That Helps Us Care for You: Yes Feels Safe at Home: Yes Safety Concerns: Feels Safe At This Time Assistive Devices: None 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 No h/o STD's, no h/o HSV/ Chlamydia/ Gonorrhea Review of Systems as per Subjective / HPI Physical Exam Constitutional: WD/WN, vitals as above well developed, well nourished, + obese and comfortable Gastrointestinal (Abdomen): normal bowel sounds, soft, nontender, no hepatosplenomegaly (gravid) Genitourinary: OB Exam Abdomen: + vertex (confirmed with bed side US) OB Exam Monitor Tracing: + external uterine monitor used and + category I Results & Data Vital Signs (Past 12 Hours) Vital Signs Temp Pulse Resp BP O2 Del Method 06/09/24 08:15 36.9 C 18 Room Air 06/09/24 07:52 98 H 138/90 06/09/24 07:49 36.9 C 100 H 18 131/87 Laboratory Results Lab Results 06/09/24 Range/Units 08:58 WBC 8.83 (4.8-10.8) K/ul RBC 4.02 L (4.20-5.40) M/uL Hgb 11.1 L (12.0-16.0) g/dl Hct 33.2 L (37.0-47.0) % MCV 82.6 (80.0-100.0) fL MCH 27.6 (25.0-34.0) pg MCHC 33.4 (32.0-36.0) g/dL RDW Std Deviation 41.4 (36.4-46.3) fL RDW Coeff of Evans 13.9 (11.5-14.5) % Plt Count 201 (130-400) K/uL MPV 10.2 (9.4-12.4) fL (2) Polyhydramnios Fetus number: single or unspecified fetus Trimester: third trimester Qualified Code(s): O40.3XX0 - Polyhydramnios, third trimester, not applicable or unspecified (3) Obesity affecting Obesity type affecting : other obesity Trimester: third trimester Qualified Code(s): O99.213 - Obesity complicating , third trimester; E66.8 - Other obesity (4) Migraines Intractability: not intractable Migraine type: chronic migraine (15 or more days per month) without aura Status migrainosus presence: without status migrainosus Qualified Code(s): G43.709 - Chronic migraine without aura, not intractable, without status migrainosus
[2024-06-09] MEDS ORDERED: NON-FORMULARY MEDICATION (Coenzyme Q10 [Coq-10] 100 mg Capsule) PO SCH (09:30)
[2024-06-09 09:38] LABS: Alanine Aminotransferase 16 U/L (7-52); Albumin Globulin Ratio 0.9 (0.9-2); Albumin Level 3.6 gm/dl (3.4-5.0); Alkaline Phosphatase 79 U/L (34-104); Anion Gap 7 (3-11); Aspartate Aminotransferase 28 U/L (13-39); BUN Creatinine Ratio 18.9 (10-20); Bilirubin,Total 0.2 mg/dl (0.2-1.0); Blood Urea Nitrogen 7 mg/dl (6-23); Calcium 9.3 mg/dl (8.6-10.3); Carbon Dioxide 21 mmol/L (21-32); Chloride 107 mmol/L (98-107); Est GFR (African American) > 150.0 ml/min; Est GFR (Non-African American) 143.4 ml/min; Globulin 3.9 gm/dl (2.5-4.0); Glucose 79 mg/dl (70-99(Fasting)); Potassium 4.1 mmol/L (3.5-5.1); Sodium 135 mmol/L (136-145); Total Protein 7.5 gm/dl (6.0-8.3)
[2024-06-09] MEDS: DINOPROSTONE 10 MG INSERT PV ONE ×2 (09:38→23:40)
[2024-06-09] MEDS ORDERED: BUTORPHANOL TARTRATE 2 MG/ML VIAL IV PRN (10:13)
[2024-06-09] MEDS: LABETALOL HCL 100 MG TAB PO SCH (10:30)
[2024-06-09] MEDS: PRENATAL VITAMIN 1 TAB PO SCH (10:30)
[2024-06-09] MEDS: CYANOCOBALAMIN (B-12) 100 MCG TABLET PO SCH (10:31)
[2024-06-09] MEDS: MAGNESIUM OXIDE 400 MG TAB PO SCH (10:41)
--- NOTE | 2024-06-09 14:13 | Obstetrical Progress Note ---
Date of Service June 09, 2024 Assessment & Plan Admission and Anticipated Discharge Date Admission Date: June 09, 2024 Subjective Patient is reevaluated, feels well, no complaints No ctxs/ LOF/VB +FM FHR categ I No ctxs on monitor Continue to monitor Results & Data Vital Signs (Past 12 Hours) Vital Signs Temp Pulse Resp BP O2 Del Method 06/09/24 14:07 100 H 133/85 06/09/24 13:41 95 H 126/82 06/09/24 12:31 86 140/89 06/09/24 11:27 89 133/80 06/09/24 11:15 18 06/09/24 11:15 36.7 C 18 06/09/24 11:00 18 06/09/24 11:00 18 06/09/24 10:26 88 133/81 06/09/24 10:00 16 06/09/24 10:00 16 06/09/24 09:30 18 06/09/24 09:30 18 06/09/24 09:27 95 H 138/86 06/09/24 08:15 36.9 C 18 Room Air 06/09/24 07:52 98 H 138/90 06/09/24 07:49 36.9 C 100 H 18 131/87
[2024-06-09] MEDS: CALCIUM CARBONATE 500 MG CHEWABLE TAB PO PRN (15:24)
--- NOTE | 2024-06-09 23:23 | Obstetrical Progress Note ---
Date of Service June 09, 2024 Assessment & Plan Admission and Anticipated Discharge Date Admission Date: June 09, 2024 Subjective Patient is seend and examined She feels well, no complaints No ctxs/ LOF/VB/ Abdominal pain +FM's VE; Cervidil was removed earlier, cerivx tight 1 finger, thick, posterior, soft, -4 FHR categ I [place] no ctxs Discussed ne need for cervical ripening, another Cervidil vs PO Cytotec She prefers Cervidil and desires to sleep All questions were answered. Results & Data Vital Signs (Past 12 Hours) Vital Signs Temp Pulse Resp BP 06/09/24 19:07 16 06/09/24 19:07 36.5 C 16 06/09/24 18:48 97 H 118/72 06/09/24 18:07 82 127/71 06/09/24 18:06 18 06/09/24 18:06 18 06/09/24 16:15 84 116/72 06/09/24 15:20 18 06/09/24 15:20 18 06/09/24 15:10 95 H 137/88 06/09/24 15:00 18 06/09/24 15:00 36.8 C 18 06/09/24 14:07 100 H 133/85 06/09/24 13:41 95 H 126/82 06/09/24 12:31 86 140/89 06/09/24 11:27 89 133/80
[2024-06-09] MEDS ORDERED: diphenhydrAMINE Capsule 25 MG CAP PO PRN (23:45)
[2024-06-10] MEDS: FAMOTIDINE 20 MG TAB PO ONE (00:01)
[2024-06-10] MEDS: FERROUS SULFATE 325 MG TAB PO SCH (09:03)
--- NOTE | 2024-06-10 13:04 | Labor Progress Brief Note ---
Date of Service June 10, 2024 Assessment & Plan Admission and Anticipated Discharge Date Admission Date: June 09, 2024 Physical Exam Genitourinary: Manual OB Exam: + cervical dilation fingertip, + cervical effacement 20% and + station high OB Exam Monitor Tracing: + external FHT monitor used, + external uterine monitor used, + category I and + normal FHT variability Cervidil removed intact. Cervix is still thick/closed/posterior/firm. Vertex is high and ballotable. Will coontinue ripening with Cytotec. Results & Data Vital Signs (Past 12 Hours) Vital Signs Temp Pulse Resp BP Pulse Ox 06/10/24 10:47 104 H 129/83 06/10/24 08:33 97 H 20 131/69 06/10/24 07:08 37 C 113 H 20 141/89 H 06/10/24 07:05 99 H 94 06/10/24 07:00 95 H 98 06/10/24 06:55 92 H 98 06/10/24 06:50 91 H 98 06/10/24 06:45 94 H 96 06/10/24 06:40 94 H 97 06/10/24 06:35 94 H 97 06/10/24 06:30 96 H 97 06/10/24 06:25 95 H 96 06/10/24 06:20 95 H 96 06/10/24 06:15 88 96 06/10/24 06:10 86 95 06/10/24 06:05 95 H 96 06/10/24 06:01 101 H 113/65 06/10/24 06:00 99 H 96 06/10/24 04:59 93 H 117/70 06/10/24 04:54 106 H 97 06/10/24 04:49 85 97 06/10/24 04:44 89 97 06/10/24 04:39 92 H 95 06/10/24 04:34 89 96 06/10/24 04:30 16 06/10/24 04:30 36.8 C 90 16 134/82 99 06/10/24 04:29 88 97 06/10/24 04:24 86 96 06/10/24 04:19 90 97 06/10/24 03:16 95 H 97 06/10/24 03:11 93 H 96 06/10/24 03:06 96 H 96 06/10/24 03:01 92 H 97 06/10/24 02:56 96 H 97 06/10/24 02:51 91 H 97 06/10/24 02:46 94 H 97 06/10/24 02:41 96 H 97 06/10/24 02:36 98 H 97 06/10/24 02:31 93 H 97 06/10/24 02:26 93 H 96 06/10/24 02:21 94 H 97 06/10/24 02:16 91 H 96 06/10/24 02:11 91 H 97 06/10/24 02:06 89 96 06/10/24 02:01 92 H 97 06/10/24 01:56 87 97 06/10/24 01:51 83 95 06/10/24 01:46 87 97 06/10/24 01:41 86 96 06/10/24 01:36 87 96 06/10/24 01:31 97 H 98
[2024-06-10] MEDS: miSOPROStoL 50 MCG TAB PO SCH (13:15)
--- NOTE | 2024-06-10 21:40 | Labor Progress Brief Note ---
Date of Service June 10, 2024 Assessment & Plan Admission and Anticipated Discharge Date Admission Date: June 09, 2024 Physical Exam Genitourinary: Manual OB Exam: + cervical dilation fingertip OB Exam Monitor Tracing: + external FHT monitor used, + external uterine monitor used, + category I and + normal FHT variability Ames inserted into cervix with 35 ml. sterile water inserted into balloon. Results & Data Vital Signs (Past 12 Hours) Vital Signs Temp Pulse Resp BP 06/10/24 20:54 106 H 137/93 06/10/24 19:03 96 H 133/83 06/10/24 19:02 18 06/10/24 19:02 36.9 C 06/10/24 16:57 85 135/89 06/10/24 15:48 37 C 06/10/24 15:46 98 H 135/90 06/10/24 15:45 100 H 145/99 H 06/10/24 13:17 98 H 20 133/81 06/10/24 12:00 36.7 C 06/10/24 10:47 104 H 129/83
--- NOTE | 2024-06-11 08:00 | Obstetrical Progress Note ---
Date of Service June 11, 2024 Assessment & Plan Admission and Anticipated Discharge Date Admission Date: June 09, 2024 Subjective Patient is reevaluated. Ames was placed last night, took PO Cytotec x4 doses Mild pain with contractions VE; Ames was in vagina Cervix: 4-5 cm/ 40%/ -3, ballotable head Plan to start PCN and Oxytocin Results & Data Vital Signs (Past 12 Hours) Vital Signs Temp Pulse Resp BP 06/11/24 07:30 118 H 126/92 06/11/24 04:11 36.7 C 90 18 123/72 06/11/24 01:03 99 H 121/72 06/10/24 22:37 18 06/10/24 22:37 36.9 C 18 06/10/24 20:54 106 H 137/93
[2024-06-11] MEDS ORDERED: Nursing to Pharmacy Communication SCH ×3 (08:45→09:00)
[2024-06-11] MEDS: LACTATED RINGER'S 1,000 ML IV PRN (08:54)
[2024-06-11] MEDS: PENICILLIN GK 6 MU in DEXTROSE 5% 250 ML IV STA (08:54)
[2024-06-11] MEDS: OXYTOCIN 30 UNITS/NSS 30 UNITS/500 ML BAG IV PRN ×2 (10:42→22:21)
[2024-06-11] MEDS: PENICILLIN GK 3 MU in DEXTROSE 5% 100 ML IV PRN (12:50)
[2024-06-11] MEDS ORDERED: fentANYL 2 MCG/ML BUPIVacaine 0.125%-NSS 100ML BAG EPI PRN (15:10)
[2024-06-11] MEDS ORDERED: NALBUPHINE HCL INJ 10 MG/ML AMP IV PRN (15:10)
[2024-06-11] MEDS ORDERED: NALOXONE HCL 1 MG in SODIUM CHLORIDE 0.9% 1,000 ML IV PRN (15:10)
[2024-06-11] MEDS ORDERED: LIDOCAINE 2% MPF LOCAL 5 ML VIAL EPI PRN (15:10)
[2024-06-11] MEDS ORDERED: ONDANSETRON INJ 2 MG/ML 2 ML VIAL IV PRN (15:10)
[2024-06-11] MEDS ORDERED: fentaNYL citrate PF 100 MCG/2 ML VIAL EPI PRN (15:10)
[2024-06-11] MEDS ORDERED: BUPIVACAINE 0.25% PF 30 ML VIAL EPI PRN (15:10)
[2024-06-11] MEDS ORDERED: ePHEDrine sulfate 50 MG/ML AMP IV PRN (15:10)
[2024-06-11] MEDS ORDERED: NALOXONE HCL 0.4 MG/1 ML VIAL/CARP IV PRN (15:10)
[2024-06-11] MEDS ORDERED: diphenhydrAMINE 50 MG/ML VIAL IV PRN (15:10)
[2024-06-11] MEDS ORDERED: SODIUM CHLORIDE 0.9% PF INJ 10 ML VIAL EPI PRN (15:10)
[2024-06-11] MEDS ORDERED: ROPIVACAINE 0.5% PF 5 MG/ML 20 ML VIAL EPI PRN (15:10)
--- NOTE | 2024-06-11 15:13 | Anesthesiology Consultation ---
Date of Service June 11, 2024 Assessment & Plan (1) Encounter for pre-operative examination: Chart Review Chart Review: Patient NOT seen in Pre Admission Testing and Acceptable Risk for Labor Epidural Consults Requested none History Height/Weight Height: 5 ft 5 in Weight: 112.491 kg Allergies Allergy/AdvReac Type Severity Reaction Status Date / Time No Known Drug Allergies Allergy Unknown Verified 06/09/24 08:08 Medications Home Medications Medication Instructions Recorded Confirmed Last Taken aspirin 81 mg chewable tablet 81 mg PO DAILY 06/09/24 06/09/24 06/08/24 09:00 coenzyme Q10 100 mg capsule 200 mg PO DAILY 06/09/24 06/09/24 06/08/24 08:00 (CoQ-10) cyanocobalamin (vitamin B-12) 500 400 mcg PO DAILY 06/09/24 06/09/24 06/08/24 08:00 mcg tablet (Vitamin B-12) ferrous sulfate 28 mg iron tablet 65 mg PO 2XD 06/09/24 06/09/24 06/09/24 06:00 labetalol 100 mg tablet 100 mg PO BID 06/09/24 06/09/24 06/08/24 20:00 magnesium 500 mg tablet 400 mg PO DAILY 06/09/24 06/09/24 06/08/24 08:00 hswbzxoy-irh-Xz-FA 1 mg 1 tab PO 1XD 06/09/24 06/09/24 06/08/24 20:00 tablet Active Medications Generic Name Dose Route Start Last Admin Trade Name Ceasarq PRN Reason Stop Dose Admin Calcium Carbonate 1,000 mg 06/09/24 08:47 06/11/24 11:17 Calcium Carbonate 500 Mg Chewable Tab PO 07/09/24 08:46 1,000 mg Q8H PRN Administration Indigestion Cyanocobalamin 400 mcg 06/09/24 09:30 06/11/24 09:00 Cyanocobalamin (B-12) 100 Mcg Tablet PO 07/09/24 09:29 Not Given DAILY ANSON Ferrous Sulfate 325 mg 06/09/24 21:00 06/11/24 09:00 Ferrous Sulfate 325 Mg Tab PO 07/09/24 20:59 Not Given BID ANSON Penicillin G Potassium 3 mu/ 106 mls @ 100 mls/hr 06/09/24 11:47 06/11/24 14:04 Dextrose IV 06/19/24 11:46 Infused Q4H PRN Infusion GBS(+) Until Delivery Oxytocin 30 units in 500 mls @ 10 mls/hr 06/11/24 08:00 06/11/24 13:50 Pitocin 30 Units/Nss IV 06/13/24 07:59 0.6 units/hr .Q24H PRN 10 mls/hr Labor Induction/Augmentation Titration Protocol 0.6 UNITS/HR Lactated Ringer's 1,000 mls @ 150 mls/hr 06/11/24 09:38 06/11/24 14:53 Lr IV 07/11/24 09:37 999 mls/hr .Q6H40M PRN Administration L&D Protocol Protocol Labetalol HCl 100 mg 06/09/24 09:30 06/11/24 08:53 Labetalol Hcl 100 Mg Tab PO 07/09/24 09:29 100 mg BID ANSON Administration Magnesium Oxide 400 mg 06/09/24 10:00 06/11/24 09:01 Magnesium Oxide 400 Mg Tab PO 07/09/24 09:59 Not Given DAILY ANSON Prenat Multivit/[place]/Iron/Folic Ac 1 tab 06/09/24 10:00 06/11/24 09:01 Vitamin 1 Tab PO 07/09/24 09:59 Not Given DAILY ANSON Past Medical History Medical History (Updated 06/11/24 @ 15:13 by Isidoro Tapia MD) Encounter for pre-operative examination Polyhydramnios Obesity affecting Migraines Hypertension Exercise / Class Metabolic Activity II 4-5 Yardwork/Stairs/Walk up hill Past Anesthesia History No Hx of Anesthesia Complications and No Family Hx of Anesthesia Complications Social History Smoking Status: Never smoker Do You Dip or Chew Tobacco: No Hx Alcohol Use: No Hx Substance Use: No substance use type: does not use Physical Exam Vital Signs Last Vital Signs Temp 36.5 C 06/11/24 14:41 Pulse 91 H 06/11/24 15:13 Resp 20 06/11/24 14:41 BP 139/95 06/11/24 14:41 Pulse Ox 99 06/11/24 15:13 O2 Del Method Room Air 06/09/24 08:15 Testing Laboratory Results 06/09/24 08:58 06/09/24 08:58 Blood Type O Positive 06/09/24 08:58 Antibody Screen NEGATIVE 06/09/24 08:58
[2024-06-11] MEDS: BUPIVACAINE 0.25% PF 30 ML VIAL ONE (15:41)
[2024-06-11] MEDS: fentaNYL citrate PF 100 MCG/2 ML VIAL ONE (15:41)
[2024-06-11] MEDS: LIDOCAINE 2%/EPINEPHRINE 1:200,000 20 ML PF ONE (15:41)
[2024-06-11] MEDS: fentANYL 2 MCG/ML BUPIVacaine 0.125%-NSS 100ML BAG ONE (15:42)
[2024-06-11] MEDS: SODIUM CHLORIDE 0.9% PF INJ 10 ML VIAL ONE (16:01)
[2024-06-11] MEDS: ePHEDrine sulfate 50 MG/ML AMP ONE (16:01)
[2024-06-11] MEDS: BUPIVACAINE 0.25% PF 30 ML VIAL EPI STA (16:05)
[2024-06-11] MEDS: fentaNYL citrate PF 100 MCG/2 ML VIAL EPI STA (16:05)
[2024-06-11] MEDS: SODIUM CHLORIDE 0.9% PF INJ 10 ML VIAL EPI STA (16:06)
[2024-06-11] MEDS: LIDOCAINE 2%/EPINEPHRINE 1:200,000 20 ML PF EPI STA (16:06)
--- NOTE | 2024-06-11 16:27 | Obstetrical Progress Note ---
Date of Service June 11, 2024 Assessment & Plan Admission and Anticipated Discharge Date Admission Date: June 09, 2024 Subjective Patient is comfortable, has epidural in place Unable to trace contractions with ext toco VE; 5/ 50%/ -2, IUPC was placed, FHR categ I Oxytocin at 12 miu/min Continue to monitor closely, adjust dose of Oxytocin with IUPC in Results & Data Vital Signs (Past 12 Hours) Vital Signs Temp Pulse Resp BP Pulse Ox 06/11/24 16:24 100 H 124/84 06/11/24 16:23 100 H 98 06/11/24 16:18 91 H 97 06/11/24 16:13 104 H 98 06/11/24 16:09 93 H 123/82 06/11/24 16:08 99 H 99 06/11/24 16:06 100 H 20 151/96 H 06/11/24 16:04 102 H 20 152/103 H 06/11/24 16:03 104 H 98 06/11/24 16:02 96 H 153/99 H 06/11/24 16:00 106 H 20 156/102 H 06/11/24 15:58 100 H 151/94 H 98 06/11/24 15:56 93 H 20 159/107 H 06/11/24 15:54 98 H 159/103 H 06/11/24 15:53 108 H 97 06/11/24 15:52 98 H 20 156/102 H 06/11/24 15:49 100 H 158/103 H 06/11/24 15:48 98 06/11/24 15:48 98 H 06/11/24 15:48 100 H 152/98 H 06/11/24 15:46 100 H 154/99 H 06/11/24 15:44 107 H 145/98 H 06/11/24 15:43 101 H 98 06/11/24 15:42 90 147/96 H 06/11/24 15:40 93 H 152/99 H 06/11/24 15:38 91 H 151/90 H 99 06/11/24 15:36 106 H 153/93 H 06/11/24 15:34 100 H 146/86 H 06/11/24 15:33 97 H 99 06/11/24 15:28 110 H 99 06/11/24 15:23 103 H 99 06/11/24 15:18 100 H 98 09/04/24 15:13 91 H 99 06/11/24 15:08 105 H 99 06/11/24 15:03 107 H 98 06/11/24 14:41 36.5 C 96 H 20 139/95 06/11/24 13:28 90 20 142/94 H 06/11/24 12:50 36.6 C 95 H 20 136/91 06/11/24 11:14 36.9 C 108 H 18 134/95 06/11/24 10:41 97 H 18 134/91 06/11/24 08:54 96 H 20 141/86 H 06/11/24 07:30 37.0 C 118 H 20 126/92
--- NOTE | 2024-06-11 18:35 | Obstetrical Progress Note ---
Date of Service June 11, 2024 Assessment & Plan Admission and Anticipated Discharge Date Admission Date: June 09, 2024 Subjective Patient is reevaluated Now on high Garcia's position, no pain VE; 5-6 cm/ 60%/-1, IUPC in, Oxytocin is at 18 miu/min FRHR categ I Continue to monitor closely Results & Data Vital Signs (Past 12 Hours) Vital Signs Temp Pulse Resp BP Pulse Ox 06/11/24 18:28 97 H 98 06/11/24 18:25 88 137/85 06/11/24 18:23 96 H 98 06/11/24 18:18 96 H 98 06/11/24 18:13 99 H 99 06/11/24 18:09 102 H 135/89 06/11/24 18:08 102 H 97 06/11/24 18:03 106 H 98 06/11/24 17:58 100 H 97 06/11/24 17:55 96 H 141/94 H 06/11/24 17:53 98 H 98 06/11/24 17:48 100 H 98 06/11/24 17:43 93 H 98 06/11/24 17:40 97 H 133/84 06/11/24 17:38 93 H 98 06/11/24 17:33 91 H 98 06/11/24 17:28 92 H 97 06/11/24 17:24 90 20 130/75 06/11/24 17:23 98 H 97 06/11/24 17:18 100 H 98 06/11/24 17:13 92 H 98 06/11/24 17:10 103 H 135/97 06/11/24 17:08 102 H 98 06/11/24 17:03 100 H 99 06/11/24 16:58 84 96 06/11/24 16:54 88 20 138/89 06/11/24 16:53 85 97 06/11/24 16:50 20 06/11/24 16:50 36.9 C 20 06/11/24 16:48 88 96 06/11/24 16:43 90 97 06/11/24 16:39 89 20 138/89 06/11/24 16:38 84 97 06/11/24 16:33 90 97 06/11/24 16:28 96 H 98 06/11/24 16:24 100 H 18 124/84 06/11/24 16:23 100 H 98 06/11/24 16:18 91 H 97 06/11/24 16:13 104 H 98 06/11/24 16:09 93 H 123/82 06/11/24 16:08 99 H 99 06/11/24 16:06 100 H 20 151/96 H 06/11/24 16:04 102 H 20 152/103 H 06/11/24 16:03 104 H 98 06/11/24 16:02 96 H 153/99 H 06/11/24 16:00 106 H 20 156/102 H 06/11/24 15:58 100 H 151/94 H 98 06/11/24 15:56 93 H 20 159/107 H 06/11/24 15:54 98 H 159/103 H 06/11/24 15:53 108 H 97 06/11/24 15:52 98 H 20 156/102 H 06/11/24 15:49 100 H 20 158/103 H 06/11/24 15:48 98 06/11/24 15:48 98 H 06/11/24 15:48 100 H 20 152/98 H 06/11/24 15:46 100 H 20 154/99 H 06/11/24 15:44 107 H 20 145/98 H 06/11/24 15:43 101 H 98 06/11/24 15:42 90 147/96 H 06/11/24 15:40 93 H 152/99 H 06/11/24 15:38 91 H 151/90 H 99 06/11/24 15:36 106 H 153/93 H 06/11/24 15:34 100 H 146/86 H 06/11/24 15:33 97 H 99 06/11/24 15:28 110 H 99 06/11/24 15:23 103 H 99 06/11/24 15:18 100 H 98 06/11/24 15:13 91 H 99 06/11/24 15:08 105 H 99 06/11/24 15:03 107 H 98 06/11/24 14:41 36.5 C 96 H 20 139/95 06/11/24 13:28 90 20 142/94 H 06/11/24 12:50 36.6 C 95 H 20 136/91 06/11/24 11:14 36.9 C 108 H 18 134/95 06/11/24 10:41 97 H 18 134/91 06/11/24 08:54 96 H 20 141/86 H 06/11/24 07:30 37.0 C 118 H 20 126/92
[2024-06-11] MEDS: MINERAL OIL 30 ML UDC ONE (21:46)
[2024-06-11] MEDS: miSOPROStoL 200 MCG TAB PR ONE (21:58)
[2024-06-11] MEDS ORDERED: BENZOCAINE 20% SPRY 85 APPLN/85 GM CAN EXT PRN (22:10)
[2024-06-11] MEDS ORDERED: oxyCODONE/ACETAMINOPHEN 5mg/325mg TAB PO PRN (22:10)
[2024-06-11] MEDS ORDERED: HYDROCORTISONE ACETATE 25 MG SUPP PR PRN (22:10)
[2024-06-11] MEDS ORDERED: OXYTOCIN 30 UNITS/NSS 30 UNITS/500 ML BAG IV PRN (22:10)
--- NOTE | 2024-06-11 22:13 | Delivery Summary ---
Vaginal Delivery Summary Date of Service June 11, 2024 Vaginal Delivery Summary Patient was found to be fully dilated and head was at +3 stattion, she desired to push. She pushed with 3 contractions only and delivered the head and then shoulders with minimal traction. Nucal cordx1 was reduced. The baby was handed off to the mother. The cord was clampedx2 and cut at 1 minute. The vagina and perineum were checked and found to have 2nd degree perineal laceration. Rectal exam was done and noted good sphincter tone. The gloves were changes. The vaginal mucosa was repaired with 2/0 vicryl and skin on subcuticular fashion. The placenta was delivered spontaneously as intact and complete. The uterus was explored and found to be empty. QBL was 828 ml. The fundus was firm The baby was a viable female infant, Apgars 8/9, the weight is pending The mother and the baby tolerated the procedure well. No complications happened and I was present during whole procedure.
[2024-06-12] MEDS: DIPHTHER/TETAN/PERTUS Vaccine (Tdap, Adol/Adult) 0.5mL IM ONE (06:06)
[2024-06-12 06:55] LABS: Hematocrit (blood only) 31.2 % (37.0-47.0); Hemoglobin 10.7 g/dl (12.0-16.0); Mean Corpuscular Hemoglobin 28.1 pg (25.0-34.0); Mean Corpuscular Hgb Conc 34.3 g/dL (32.0-36.0); Mean Corpuscular Volume 81.9 fL (80.0-100.0); Mean Platelet Volume 10.5 fL (9.4-12.4); Platelet Count 205 K/uL (130-400); RDW Coefficient of Variation 14.1 % (11.5-14.5); RDW Standard Deviation 41.2 fL (36.4-46.3); Red Blood Count 3.81 M/uL (4.20-5.40); White Blood Count 15.71 K/ul (4.8-10.8)
[2024-06-12] MEDS: ACETAMINOPHEN 325 MG TAB PO PRN (07:59)
[2024-06-12] MEDS: DOCUSATE SODIUM 100 MG CAP PO SCH (08:01)
[2024-06-12] MEDS: PRENATAL VITAMIN 1 TAB PO SCH (08:01)
[2024-06-12] MEDS: FERROUS SULFATE 325 MG TAB PO SCH (08:01)
[2024-06-12] MEDS: IBUPROFEN 600 MG TAB PO PRN (09:15)
--- NOTE | 2024-06-12 10:05 | Labor Progress Brief Note ---
Date of Service June 12, 2024 Subjective Reason For Note: Routine Evaluation Assessment & Plan Admission and Anticipated Discharge Date Admission Date: June 09, 2024 Physical Exam Constitutional: WD/WN, vitals as above Gastrointestinal (Abdomen): Inspection/Auscultation: abdomen normal to inspection abdomen soft and non-tender. fundus firm Musculoskeletal: Extremities: extremities normal to inspection Skin: no rashes, warm and dry Neurologic: patellar DTR's 2+ bilat, sensation intact Psychiatric: A+Ox3, euthymic affect Results & Data Vital Signs (Past 12 Hours) Vital Signs Temp Pulse Pulse Resp BP BP 06/12/24 04:20 36.9 C 99 H 18 115/75 06/12/24 01:25 36.9 C 109 H 18 130/86 06/12/24 00:58 37.4 C 18 06/12/24 00:54 114 H 134/87 06/12/24 00:39 109 H 129/83 06/12/24 00:25 121 H 134/92 06/12/24 00:09 144/80 H 06/12/24 00:08 126 H 154/80 H 06/12/24 00:05 18 06/11/24 23:54 121 H 06/11/24 23:54 135/71 06/11/24 23:39 126 H 06/11/24 23:39 136/79 06/11/24 23:35 18 06/11/24 23:24 111 H 06/11/24 23:24 135/77 06/11/24 23:09 112 H 137/65 06/11/24 23:05 18 06/11/24 22:54 123 H 137/69 06/11/24 22:50 18 06/11/24 22:40 111 H 145/85 H 06/11/24 22:35 18 06/11/24 22:24 102 H 129/83 06/11/24 22:20 18 06/11/24 22:09 115 H 137/83 06/11/24 22:05 18 06/11/24 22:05 123 H 133/88 Laboratory Results Laboratory Results - last 72 hr 06/09/24 06/12/24 08:58 06:21 WBC 15.71 H RBC 3.81 L Hgb 10.7 L Hct 31.2 L MCV 81.9 MCH 28.1 MCHC 34.3 RDW Std Deviation 41.2 RDW Coeff of Evans 14.1 Plt Count 205 MPV 10.5 Treponema pallidum Ab Negative Blood Type O Positive Antibody Screen NEGATIVE
--- NOTE | 2024-06-12 10:20 | Anesthesia Procedure Note ---
Date of Service June 12, 2024 Anesthesia Post Epidural Note Vital Signs Vital Signs: Temp Pulse Resp BP Pulse Ox O2 Del Method 98.4 F 99 H 18 115/75 98 Room Air 06/12/24 04:20 06/12/24 04:20 06/12/24 04:20 06/12/24 04:20 06/11/24 21:48 06/09/24 08:15 Pain Intensity Bilateral Abdomen: Pain Intensity: 4 Notes Mental Status: alert / awake / arousable and participated in evaluation Nausea / Vomiting: adequately controlled Pain: adequately controlled Airway Patency, RR, SpO2: stable & adequate BP & HR: stable & adequate Hydration State: stable & adequate Neuraxial Anesthesia: was administered and sensory block is resolving Anesthetic Complications: no major complications apparent and Pt Satisfied with anesthetic care Epidural: Removed without complications and With tip intact
[2024-06-12] MEDS: bisacodyL 5 MG TABEC PO SCH (21:25)
[2024-06-13] MEDS ORDERED: bisacodyL 10 MG SUPP PR PRN
[2024-06-13 01:10] VITALS: O2SAT 99
[2024-06-13 07:23] LABS: Basophils # (auto) 0.03 K/uL (0.00-0.20); Basophils % (auto) 0.3 %; Eosinophils # (auto) 0.26 K/uL (0.00-0.50); Eosinophils % (auto) 2.3 %; Hematocrit (blood only) 27.9 % (37.0-47.0); Hemoglobin 9.6 g/dl (12.0-16.0); Immature Granulocytes # (auto) 0.09 K/uL (0.01-0.20); Immature Granulocytes % (auto) 0.8 %; Lymphocytes # (auto) 2.21 K/uL (1.20-3.40); Lymphocytes % (auto) 19.2 %; Mean Corpuscular Hemoglobin 28.4 pg (25.0-34.0); Mean Corpuscular Hgb Conc 34.4 g/dL (32.0-36.0); Mean Corpuscular Volume 82.5 fL (80.0-100.0); Mean Platelet Volume 10.3 fL (9.4-12.4); Monocytes % (auto) 8.7 %; Neutrophils % (auto) 68.7 %; Platelet Count 195 K/uL (130-400); RDW Coefficient of Variation 14.1 % (11.5-14.5); RDW Standard Deviation 41.4 fL (36.4-46.3); Red Blood Count 3.38 M/uL (4.20-5.40); White Blood Count 11.49 K/ul (4.8-10.8)
[2024-06-13 08:21] VITALS: BP 126/85; PULSE 102; RESP 18; TEMP 97.5
--- NOTE | 2024-06-13 09:00 | Obstetrical Progress Note ---
Date of Service June 13, 2024 Assessment & Plan Admission and Anticipated Discharge Date Admission Date: June 09, 2024 Subjective Patient is seen and examined. She feels well, no complaints. Ambulating without dizziness Voiding without difficulty Tolerating regular diet with out N&V Bleeding is minimal No fever/ chills/ CP/ SOB/ N&V/ Leg pain Breast feeding without problems Vital Signs Temp Pulse Resp BP Pulse Ox O2 Del Method 06/13/24 08:00 36.4 C L 102 H 18 126/85 Room Air 06/13/24 00:00 36.7 C 64 16 138/76 99 Room Air Vital Signs Temp Pulse Resp BP Pulse Ox O2 Del Method 06/13/24 08:00 36.4 C L 102 H 18 126/85 Room Air 06/13/24 00:00 36.7 C 64 16 138/76 99 Room Air 06/12/24 20:00 36.5 C 105 H 16 128/86 97 Room Air 06/12/24 16:00 36.6 C 98 H 16 132/85 Room Air 06/12/24 11:25 36.6 C 97 H 18 115/77 Room Air Lab Results 06/09/24 06/12/24 06/13/24 Range/Units 08:58 06:21 07:09 WBC 8.83 15.71 H 11.49 H (4.8-10.8) K/ul RBC 4.02 L 3.81 L 3.38 L (4.20-5.40) M/uL Hgb 11.1 L 10.7 L 9.6 L (12.0-16.0) g/dl Hct 33.2 L 31.2 L 27.9 L (37.0-47.0) % MCV 82.6 81.9 82.5 (80.0-100.0) fL MCH 27.6 28.1 28.4 (25.0-34.0) pg MCHC 33.4 34.3 34.4 (32.0-36.0) g/dL RDW Std Deviation 41.4 41.2 41.4 (36.4-46.3) fL RDW Coeff of Evans 13.9 14.1 14.1 (11.5-14.5) % Plt Count 201 205 195 (130-400) K/uL MPV 10.2 10.5 10.3 (9.4-12.4) fL Immature Gran % (Auto) 0.8 % Neut % (Auto) 68.7 % Lymph % (Auto) 19.2 % Smith % (Auto) 8.7 % Eos % (Auto) 2.3 % Baso % (Auto) 0.3 % Neut # (Auto) 7.90 H (1.40-6.50) K/uL Lymph # (Auto) 2.21 (1.20-3.40) K/uL Smith # (Auto) 1.00 H (0.11-0.59) K/uL Eos # (Auto) 0.26 (0.00-0.50) K/uL Baso # (Auto) 0.03 (0.00-0.20) K/uL Immature Gran # (Auto) 0.09 (0.01-0.20) K/uL Sodium 135 L (136-145) mmol/L Potassium 4.1 (3.5-5.1) mmol/L Chloride 107 (98-107) mmol/L Carbon Dioxide 21 (21-32) mmol/L Anion Gap 7 (3-11) BUN 7 (6-23) mg/dl Creatinine 0.37 L (0.6-1.2) mg/dl Est Cr Clr Drug Dosing 278.0 ml/min Est GFR ( Amer) > 150.0 ml/min Est GFR (Non-Af Amer) 143.4 ml/min BUN/Creatinine Ratio 18.9 (10-20) Glucose 79 (70-99(Fasting)) mg/dl Calcium 9.3 (8.6-10.3) mg/dl Total Bilirubin 0.2 (0.2-1.0) mg/dl AST 28 (13-39) U/L ALT 16 (7-52) U/L Alkaline Phosphatase 79 (34-104) U/L Total Protein 7.5 (6.0-8.3) gm/dl Albumin 3.6 (3.4-5.0) gm/dl Globulin 3.9 (2.5-4.0) gm/dl Albumin/Globulin Ratio 0.9 (0.9-2) Treponema pallidum Ab Negative (Negative) Blood Type O Positive Antibody Screen NEGATIVE PE: General: Alert, orientedx3, NAD Abd: soft, NT, fundus firm, below Umbilicus Perineum intact, Lochia rubra minimal Ext; NT, no edema AP: 29 yo s/p , ppd# 1 VSS Afebrile doing well Continue routine care All questions were answered D/C home , f/u in office Results & Data Vital Signs (Past 12 Hours) Vital Signs Temp Pulse Resp BP Pulse Ox O2 Del Method 06/13/24 08:00 36.4 C L 102 H 18 126/85 Room Air 06/13/24 00:00 36.7 C 64 16 138/76 99 Room Air
[2024-06-13] MEDS: MEASLES, MUMPS & RUBELLA VIRUS VACCINE (MMR) 0.5ML VIAL SQ ONE (10:54)
== END 2024-06-13 13:30 | disposition home health service (06) | DRG 806 ==
LOC: 4S1 07:39 → 4E2 06-12 01:32
DX: O99.824 Streptococcus B carrier state complicating childbirth; O13.4 Gestational [pregnancy-induced] hypertension without significant proteinuria, complicating childbirth; O40.3XX0 Polyhydramnios, third trimester, not applicable or unspecified; G43.909 Migraine, unspecified, not intractable, without status migrainosus; Z3A.39 39 weeks gestation of pregnancy; E66.9 Obesity, unspecified; O99.354 Diseases of the nervous system complicating childbirth; O69.81X0 Labor and delivery complicated by cord around neck, without compression, not applicable or unspecified; O70.1 Second degree perineal laceration during delivery; Z79.82 Long term (current) use of aspirin; Z37.0 Single live birth; O99.214 Obesity complicating childbirth